=== PATIENT | female | born 1960 | race Caucasian/White ===

== ENCOUNTER 2021-01-18 13:27 | Outpatient (REF) | payer MEDICARE, OTHER, SELFPAY ==
[2021-01-19 08:25] LABS: HBsAGNum1 0.23 S/CO (0.00-0.99); HIV AB/AG Nonreactive (Nonreactive); HIV Num 1 0.05 S/CO (0.00-0.99); Hepatitis B Surface Antigen Negative (Negative)
[2021-01-19 08:34] LABS: ~HepC Num1 0.07 S/CO (0.00-0.79); ~Hepatitis C Antibody Nonreactive (Nonreactive)
[2021-01-19 08:35] LABS: Syphilis Screen Nonreactive (Nonreactive)
[2021-01-19 10:02] LABS: BV Int Neg Control Negative (Negative); BV Int Pos Control Positive (Positive)
== END 2021-01-18 13:28 | disposition home or self-care (01) ==
LOC: HO.LAB 13:27
PROVIDERS: Visit Provider Obstetrics & Gynecology
DX: Z01.411 Encounter for gynecological examination (general) (routine) with abnormal findings (principal); Z11.4 Encounter for screening for human immunodeficiency virus [HIV]; N76.0 Acute vaginitis; B96.89 Other specified bacterial agents as the cause of diseases classified elsewhere
CPT/HCPCS: 36415; 86780; 86803; 87340; 87389; 87480; 87510; 87660; 99212

== ENCOUNTER 2021-03-11 13:02 | Outpatient (REF) | payer MEDICARE, OTHER, SELFPAY ==
--- NOTE | ~2021-03-11 | MM_ITS ---
EXAMINATION: MM SCREENING DIGITAL BREAST TOMOSYNTHESIS, BILATERAL CLINICAL INFORMATION: Screening. Asymptomatic. The lifetime risk of breast cancer based on the Tyrer-Cuzick Model is 5%. COMPARISON: Mammography: 10/11/2012 TECHNIQUE: Digital breast tomosynthesis is performed in both the craniocaudal and mediolateral oblique views along with computer-aided detection (CAD). Synthesized 2D images are generated from the tomosynthesis. FINDINGS: There are scattered areas of fibroglandular density (ACR BI-RADS breast composition Category b). There are no significant masses, abnormal calcifications, or other abnormalities. There is a biopsy clip marker mid upper outer right breast. Scattered benign punctate and some coarse calcifications are present in each breast. There is no developing density or interval mass or architectural abnormality. No significant changes. MM/MM tomosynthesis screening BI IMPRESSION: No mammographic evidence of malignancy. ASSESSMENT: BI-RADS 2: Benign RECOMMENDATION: Routine annual mammography screening. This patient's information was entered into a reminder system with a target due date for their next mammogram.
== END 2021-03-11 13:03 | disposition home or self-care (01) ==
LOC: HO.MAMMO 13:02
PROVIDERS: PCP Internal Medicine; Visit Provider Obstetrics & Gynecology
DX: Z12.31 Encounter for screening mammogram for malignant neoplasm of breast (principal)
CPT/HCPCS: 77063; 77067

== ENCOUNTER → 2021-03-15 14:33 | Outpatient (REF) | payer MEDICARE, OTHER, SELFPAY | LOC: HO.SL 14:33 | PROVIDERS: PCP Internal Medicine; Visit Provider Internal Medicine | DX: G47.33 Obstructive sleep apnea (adult) (pediatric) (principal); R53.83 Other fatigue | CPT/HCPCS: 95806 ==

== ENCOUNTER 2021-04-30 08:52 | Outpatient (REF) | payer MEDICARE, OTHER, SELFPAY ==
[2021-04-30 09:26] LABS: MANUAL DIFF FLAG NO
[2021-04-30 10:40] LABS: Basophils Percent Auto 0.4 % (0-2); Eosinophils Absolute Auto 0.3 X10*3/uL (0.0-0.4); Eosinophils Percent Auto 4.5 % (0-4); Hematocrit 37.4 % (37.0-47.0); Hemoglobin 12.2 g/dl (12.0-16.0); Imm Gran Abs Auto 0.01 X10*3/uL (0.00-0.03); Imm Gran Pct Auto 0.2 % (0.0-0.4); Lymphocytes Absolute Auto 2.5 X10*3/uL (1.2-4.9); Lymphocytes Percent Auto 43.8 % (20-40); Mean Corpuscular HGB Conc 32.6 g/dl (31.0-35.0); Mean Corpuscular Hemoglobin 29.8 pg (27.0-33.0); Mean Corpuscular Volume 91.4 fL (80.0-98.0); Mean Platelet Volume 12.1 fL (9.4-12.3); Monocytes Absolute Auto 0.4 X10*3/uL (0.1-1.2); Monocytes Percent Auto 6.6 % (2-11); Neutrophils Absolute Auto 2.5 x10*3/uL (2.0-8.3); Neutrophils Percent Auto 44.5 % (45-73); Platelet Count 179 X10*3/uL (160-400); Red Blood Count 4.09 X10*6/uL (4.20-5.50); Red Cell Distribution Width 12.5 % (11.0-16.0); White Blood Count 5.6 X10*3/uL (4.8-10.8)
[2021-04-30 10:52] LABS: Alanine Aminotransferase 26 U/L (0-31); Albumin Level 4.3 g/dL (3.5-5.0); Alkaline Phosphatase 98 U/L (39-117); Anion Gap 14 (12-20); Aspartate Amino Transferase 23 U/L (5-31); Bilirubin Total 0.2 mg/dL (0.0-1.0); Blood Urea Nitrogen 19 mg/dL (9-16); Calcium 9.7 mg/dL (8.4-10.2); Carbon Dioxide 27 mmol/L (22-29); Chloride 102 mmol/L (96-108); Cholesterol 171 mg/dL; Estimated Glomerular Filt Rate > 60; Glucose Fasting 116 mg/dL (60-99); HDL Cholesterol 53 mg/dL; LDL Cholesterol Calculated 63 mg/dl; Potassium 4.2 mmol/L (3.3-5.1); Sodium 139 mmol/L (135-145); Triglycerides 279 mg/dL
[2021-04-30 10:54] LABS: Microalbum/Creatinine Ratio Ur 6.2 ug/mg cr
[2021-04-30 11:31] LABS: Estimated Average Glucose 154 mg/dL
== END 2021-04-30 08:53 | disposition home or self-care (01) ==
LOC: HO.LAB 08:52
PROVIDERS: PCP Internal Medicine; Visit Provider Internal Medicine
DX: I10 Essential (primary) hypertension (principal); E11.9 Type 2 diabetes mellitus without complications; E78.00 Pure hypercholesterolemia, unspecified
CPT/HCPCS: 36415; 80053; 80061; 82043; 83036; 85025

== ENCOUNTER 2021-06-10 10:17 | Outpatient (REF) | payer MEDICARE, OTHER, SELFPAY ==
--- NOTE | ~2021-06-10 | XR_ITS ---
EXAMINATION: 1. RADIOGRAPHS LEFT SHOULDER 2. RADIOGRAPHS LEFT HIP CLINICAL INFORMATION: Left shoulder and left hip pain. COMPARISON: None TECHNIQUE: 4 views of the left shoulder and 2 views of left hip were obtained. FINDINGS: Left shoulder: Visualized portion of the proximal left humerus demonstrate no fracture. Humeral head demonstrates good articulation with the glenoid fossa. Prominent osteophyte off the inferomedial aspect of the humeral head. Small osteophyte also noted off the glenoid. There are mild hypertrophic changes of the acromioclavicular joint. Left-sided ribs and lung parenchyma are unremarkable. Left hip: Visualized portion of the proximal left femur demonstrate no fracture. Left femoral head demonstrates good articulation with the glenoid fossa. Left femoral acetabular joint space is well-maintained. Small pelvic calcifications are likely vascular in nature. XR/XR hip LT min 2V IMPRESSION: -Moderate degenerative changes of the left shoulder. -Grossly unremarkable radiographs of the left hip.
--- NOTE | ~2021-06-10 | XR_ITS ---
EXAMINATION: 1. RADIOGRAPHS LEFT SHOULDER 2. RADIOGRAPHS LEFT HIP CLINICAL INFORMATION: Left shoulder and left hip pain. COMPARISON: None TECHNIQUE: 4 views of the left shoulder and 2 views of left hip were obtained. FINDINGS: Left shoulder: Visualized portion of the proximal left humerus demonstrate no fracture. Humeral head demonstrates good articulation with the glenoid fossa. Prominent osteophyte off the inferomedial aspect of the humeral head. Small osteophyte also noted off the glenoid. There are mild hypertrophic changes of the acromioclavicular joint. Left-sided ribs and lung parenchyma are unremarkable. Left hip: Visualized portion of the proximal left femur demonstrate no fracture. Left femoral head demonstrates good articulation with the glenoid fossa. Left femoral acetabular joint space is well-maintained. Small pelvic calcifications are likely vascular in nature. XR/XR shoulder LT min 2V IMPRESSION: -Moderate degenerative changes of the left shoulder. -Grossly unremarkable radiographs of the left hip.
== END 2021-06-10 10:18 | disposition home or self-care (01) ==
LOC: HO.XRAY 10:17
PROVIDERS: PCP Internal Medicine; Visit Provider Internal Medicine
DX: M25.512 Pain in left shoulder (principal); M25.552 Pain in left hip
CPT/HCPCS: 73030; 73502

== ENCOUNTER 2021-06-27 10:20 | Day surgery (SDC) | payer MEDICARE, OTHER, SELFPAY ==
[2021-06-27 10:58] VITALS: BMI 29.2
[2021-06-27 11:07] VITALS: BP 115/67; PULSE 61; RESP 16; TEMP 36.2; O2SAT 96
[2021-06-27 11:11] LABS: Glucose, Whole Blood 143 mg/dL (60-115)
[2021-06-27] MEDS: Lactated Ringers 1,000 ML 50 ML IVCONT (11:25)
--- NOTE | 2021-06-27 12:13 | HO.ANESPROP2 ---
FORMERLY [facility] Active Problems Active Problems: All Active Problems (Updated 01/18/21 @ 14:22 by Sebastian Velez MD) Bacterial vaginosis (Acute) Well woman exam (Acute) Past Medical History Medical History Diabetes High cholesterol Seizures Family History Family history of problems with anesthesia: No Surgical History Surgical History H/O tubal ligation H/O: hysterectomy History of Problems with Anesthesia: No Social History Social History Alcohol intake: current Alcohol intake frequency: holidays/special occasions only Patient Tobacco Use Status: Former Tobacco user Quit Date: 2012 Tobacco use type: Cigarette Smoked in Last 30 Days: No Use of substances other than those prescribed or required for medical reasons: No Are you DNR?: No Advance Directives: No Advance Directives Information Provided: Yes Meds Allergies Allergy/AdvReac Type Severity Reaction Status Date / Time topiramate [Topamax] Allergy Intermediate rash Verified 06/27/21 10:45 Active Medications: Current Medications Lactated Ringer's (Lr) 1,000 mls @ 50 mls/hr IVCONT .Q20H KEKE Last Admin: 06/27/21 11:25 Dose: 50 mls/hr Documented by: Sodium Biphosphate/Sodium Phosphate (Sodium Phosphate,[place]-Dibasic 133 Ml Enema) 133 ml OR ONCE PRN PRN Reason: Poor Colonoscopy Prep Results Home Medications Medication Instructions Recorded Confirmed Last Taken Type atorvastatin 40 mg tablet (Lipitor) 40 mg PO DAILY 01/18/21 Unknown History levetiracetam 1,000 mg tablet 1,000 mg PO BID 01/18/21 06/27/21 08:00 History (Keppra) metformin 500 mg tablet 500 mg PO DAILY 01/18/21 Unknown History omeprazole 40 mg capsule,delayed 40 mg PO DAILY 01/18/21 Unknown History release lisinopril 10 1 tab PO DAILY 06/27/21 06/27/21 06/27/21 08:00 History mg-hydrochlorothiazide 12.5 mg tablet Exam Exam Date and Time: June 27, 2021 1213 Height,Weight and Vital Signs: Height 5 ft 4 in Weight 77.111 kg Last Vital Signs Temp 97.1 F 06/27/21 11:07 Pulse 61 06/27/21 11:07 Resp 16 06/27/21 11:07 BP 115/67 06/27/21 11:07 Pulse Ox 96 06/27/21 11:07 Pertinent Lab Results Pertinent Lab Results: Laboratory Tests 06/27/21 11:04 POC Glucose 143 H Airway Mallampati Class: III TM Dist: >3cm Neck ROM: Full Assessment and Plan Assessment Anesthesia Assessment: Anesthesia Plan Discussed and Chart Reviewed Final Anesthetic Review Family History of Problems with Anesthesia: No History of Problems with Anesthesia: No NPO: Yes ASA Class: III Final Preanesthetic Review: No Changes in Pt Med Stat, Meds/Allgs Chart Reviewed, Consent Obtained/Reviewed and Anes Risks/Benef Reviewed Patient Risk: Intermediate Procedure Risk: Low Anesthetic Plan Anesthetic Plan: MAC: Disposition: Standard PACU
[2021-06-27 13:43] VITALS: BP 106/53; PULSE 68; RESP 16; TEMP 36.4; O2SAT 97
--- NOTE | 2021-06-27 13:44 | PM.OP ---
Brief Operative Note Date of Service: 06/27/21 Pre-op diagnosis: Screening Post-op diagnosis: other (Diversticulosis) Procedure: Colonoscopy to the cecum and TI Surgeon: Aneesh Albrecht Anesthesia: MAC Was an Sculpture Instructor used for this Procedure?: No Estimated blood loss (mL): 0 Pathology: none sent Condition: stable Disposition: PACU
[2021-06-27 13:58] VITALS: BP 114/57; PULSE 56; RESP 19; TEMP 36.9; O2SAT 97
--- NOTE | 2021-06-27 14:44 | OP_ITS ---
SURGEON: Aneesh Albrecht MD INDICATIONS: The patient presents for evaluation of colorectal cancer screening. Full consent was obtained from her for this, including risks of bleeding and perforation. PREOPERATIVE DIAGNOSIS: Colorectal cancer screening. POSTOPERATIVE DIAGNOSIS: PROCEDURE PERFORMED: Colonoscopy to the cecum and terminal ileum. ESTIMATED BLOOD LOSS: COMPLICATIONS: ANESTHESIA: Monitored anesthesia care. ASSISTANTS: SPECIMENS: POSTOPERATIVE DIAGNOSES: Colorectal cancer screening, diverticulosis and internal hemorrhoids. DESCRIPTION OF PROCEDURE: The patient was placed in the left lateral decubitus position. The digital rectal exam revealed no abnormalities. The Olympus video pediatric colonoscope was entered into the rectum and advanced easily to the cecum. Once in the cecum, I did identify normal-appearing cecal pouch with appendiceal orifice and a normal-appearing ileocecal valve. The terminal ileum was cannulated and appeared normal. The scope was withdrawn back in the colon. The entire cecum and ileocecal valve appeared normal. The scope was slowly withdrawn assessing all mucosal surfaces carefully. Preparation was excellent. I did not visualize any sign of polyps, colitis, nor angiodysplasia. There was a mild amount of sigmoid diverticulosis. In the rectum, scope was retroflexed visualizing internal hemorrhoids, but no other pathology. The rectal mucosa appeared normal. The scope was straightened and withdrawn from the patient. She tolerated the procedure well and was returned to recovery area in stable condition. IMPRESSION: 1. Diverticulosis. 2. Internal hemorrhoids. PLAN: Given the negative exam and no family history of first-degree relatives with colon cancer, I would recommend a repeat colonoscopy in 10 years for further screening. She was advised that she could resume aspirin and fish oil today. MD REID Youngblood/YUNIOR / [id number]
== END 2021-06-27 14:47 | disposition home or self-care (01) ==
PROVIDERS: PCP Internal Medicine; Visit Provider Internal Medicine
PROC: 0DJD8ZZ Inspection of Lower Intestinal Tract, Via Natural or Artificial Opening Endoscopic (ICD-10-PCS; CPT 45378; principal; 2021-06-27 11:40)
DX: Z12.11 Encounter for screening for malignant neoplasm of colon (principal); K57.30 Diverticulosis of large intestine without perforation or abscess without bleeding; K64.8 Other hemorrhoids; K21.9 Gastro-esophageal reflux disease without esophagitis; E78.5 Hyperlipidemia, unspecified; G40.909 Epilepsy, unspecified, not intractable, without status epilepticus; I10 Essential (primary) hypertension; E11.9 Type 2 diabetes mellitus without complications; Z79.84 Long term (current) use of oral hypoglycemic drugs; Z79.82 Long term (current) use of aspirin; Z79.899 Other long term (current) drug therapy
CPT/HCPCS: G0121; 82947

== ENCOUNTER 2022-08-18 08:39 | Outpatient (REF) | payer MEDICARE, OTHER, SELFPAY ==
[2022-08-18 09:11] LABS: MANUAL DIFF FLAG NO
[2022-08-18 10:05] LABS: Basophils Percent Auto 0.6 % (0-2); Eosinophils Absolute Auto 0.2 X10*3/uL (0.0-0.4); Eosinophils Percent Auto 4.1 % (0-4); Hematocrit 33.9 % (37.0-47.0); Hemoglobin 11.2 g/dl (12.0-16.0); Imm Gran Abs Auto 0.01 X10*3/uL (0.00-0.03); Imm Gran Pct Auto 0.2 % (0.0-0.4); Lymphocytes Absolute Auto 2.3 X10*3/uL (1.2-4.9); Lymphocytes Percent Auto 48.7 % (20-40); Mean Corpuscular Hemoglobin 29.9 pg (27.0-33.0); Mean Corpuscular Volume 90.4 fL (80.0-98.0); Mean Platelet Volume 12.8 fL (9.4-12.3); Monocytes Absolute Auto 0.3 X10*3/uL (0.1-1.2); Monocytes Percent Auto 5.6 % (2-11); Neutrophils Absolute Auto 1.9 x10*3/uL (2.0-8.3); Neutrophils Percent Auto 40.8 % (45-73); Platelet Count 142 X10*3/uL (160-400); Red Blood Count 3.75 X10*6/uL (4.20-5.50); Red Cell Distribution Width 12.4 % (11.0-16.0); White Blood Count 4.7 X10*3/uL (4.8-10.8)
[2022-08-18 10:34] LABS: Estimated Average Glucose 137 mg/dL; Hemoglobin A1c % 6.4 %
[2022-08-18 10:59] LABS: Alanine Aminotransferase 21 U/L (0-31); Albumin Level 4.1 g/dL (3.5-5.0); Alkaline Phosphatase 69 U/L (39-117); Anion Gap 12 (12-20); Aspartate Amino Transferase 22 U/L (5-31); Bilirubin Total 0.5 mg/dL (0.0-1.0); Blood Urea Nitrogen 12 mg/dL (9-16); Calcium 9.3 mg/dL (8.4-10.2); Carbon Dioxide 25 mmol/L (22-29); Chloride 107 mmol/L (96-108); Cholesterol 173 mg/dL; Estimated Glomerular Filt Rate > 60; Glucose Fasting 117 mg/dL (60-99); HDL Cholesterol 49 mg/dL; LDL Cholesterol Calculated 93 mg/dl; Potassium 4.3 mmol/L (3.3-5.1); Sodium 140 mmol/L (135-145); Total Protein 6.8 g/dL (6.5-8.0); Triglycerides 156 mg/dL
[2022-08-18 11:14] LABS: TSH reflex Free T4 0.85 uIU/mL (0.32-4.0); Vitamin D 25-OH Total 21.8 ng/mL (>30)
[2022-08-18 12:20] LABS: Creatinine Urine 284.01 mg/dL; Microalbum/Creatinine Ratio Ur 5.6 ug/mg cr
== END 2022-08-18 08:40 | disposition home or self-care (01) ==
LOC: HO.LAB 08:39
PROVIDERS: Visit Provider Nurse Practitioner Family
DX: Z13.29 Encounter for screening for other suspected endocrine disorder (principal); Z13.21 Encounter for screening for nutritional disorder; Z13.220 Encounter for screening for lipoid disorders; Z13.0 Encounter for screening for diseases of the blood and blood-forming organs and certain disorders involving the immune mechanism; E11.9 Type 2 diabetes mellitus without complications
CPT/HCPCS: 36415; 80053; 80061; 82043; 82306; 83036; 84443; 85025

== ENCOUNTER 2022-09-01 11:20 | Outpatient (AMB) | payer MEDICARE, OTHER, SELFPAY ==
[2022-09-01 11:22] VITALS: BP 132/80; PULSE 66; O2SAT 96; BMI 27.1
--- NOTE | 2022-09-01 11:22 | A.OFFPC_ITS ---
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 Medical history significant for asthma, hyperlipidemia, migraines, insomnia, type 2 diabetes mellitus, seizures, hypertension, anxiety, depression, panic attacks and GERD. Patient states ongoing back for years s/p lumbar spine fusion 2016, patient states has 5 screws and a plate in back. Patient pain radiated hip and left leg. States numbness and tingling. Denies bowel or bladder incontinence. PAtient states has completed PT multiple times with no improvement. [facility] Medical History (Updated 09/01/22 @ 11:56 by CORAL Silvestre) Asthma Diabetes High cholesterol Insomnia Seizures Surgical History H/O tubal ligation H/O: hysterectomy History of back surgery History of breast biopsy Family History Mother Diabetes Sister Colon cancer Brother Cirrhosis of liver Social History (Updated 08/11/22 @ 14:01 by CORAL Silvestre) Housing: House Alcohol intake: current Alcohol intake frequency: holidays/special occasions only Patient Tobacco Use Status: Former Tobacco user (2012) Quit Date: 2012 Tobacco use type: Cigarette e-Cigarette/Vaping Use: Never Used Second Hand Smoke Exposure: Yes service: No Current occupational status: retired Cognitive needs: Yes (cane/ walker) Hearing needs: No Vision needs: Yes (glasses) Questionnaire PHQ-9 Over the last 2 weeks, how often have you been bothered by any of the following problems? 1. Little interest or pleasure in doing things: nearly every day 2. Feeling down, depressed, or hopeless: nearly every day 3. Trouble falling or staying asleep, or sleeping too much: nearly every day 4. Feeling tired or having little energy: more than half the days 5. Poor appetite or overeating: more than half the days 6. Feeling bad about yourself - or that you are a failure or have let yourself or your family down: more than half the days 7. Trouble concentrating on things, such as reading the newspaper or watching television: more than half the days 8. Moving or speaking so slowly that other people could have noticed. Or the opposite - being so fidgety or restless that you have been moving around a lot more than usual: more than half the days 9. Thoughts that you would be better off or of hurting yourself in some way: not at all Total score: 19 Source: Developed by Drs. Aneesh Lomax, Selma Pedroza, Salvador Aparicio and colleagues, with an educational dheeraj from [employer]. Thrive Questionnaire Date Thrive assessed: 09/01/22 I am a: Patient What is your living situation today?: I have a steady place to live Within the past 12 months, did the food you bought not last and you didn't have the money to get more?: Never true Within the past 12 months, did you worry whether your food would run out before you got money to buy more?: Never true Do you have trouble paying for medicines?: No Do you have trouble getting transportation to medical appointments?: No Do you have trouble paying your heating and electricity bill?: No Do you have trouble taking care of your child, family member or friend?: No Do you have trouble with day-to-day activities such as bathing, preparing meals, shopping, managing finances, etc.?: No Are you currently unemployed and looking for a job?: No Are you interested in more education?: No Currently or been in a relationship where the following occur: no concerns reported AUDIT C Alcohol Use Questionnaire (AUDIT-C) 1. How often do you have a drink containing alcohol?: Never Total Score: 0 KANWAL-7 AMB Questionnaire KANWAL-7 Date KANWAL - 7 assessed: 09/01/22 Feeling nervous, anxious, or on edge: 2 = More than half the days Not being able to stop or control worryin = More than half the days Worrying too much about different things: 2 = More than half the days Trouble relaxin = More than half the days Being so restless that it is hard to sit still: 1 = Several days Becoming easily annoyed or irritable: 2 = More than half the days Feeling afraid as if something awful might happen: 1 = Several days Total KANWAL-7 score (0-4 normal; 5-9 mild; 10-14 moderate; 15-21 severe): 12 Source: Developed by Drs. Aneesh Lomax, Selma Pedroza, Salvador Aparicio and colleagues, with an educational dheeraj from [employer]. Review of Systems Const Denies chills, Denies fatigue, Denies fever(s) and Denies poor appetite Eyes Denies no additional complaints ENT Reports Normal hearing present Card Denies chest pain, Denies syncope, Denies rapid heart rate and Denies dyspnea Resp Denies cough and Denies dyspnea GI Denies change in stool character, Denies constipation, Denies diarrhea, Denies nausea and Denies vomiting Denies urinary frequency, Denies dysuria and Denies urinary urgency Musc Reports back pain Neuro Reports Normal hearing present, Denies confusion and Denies syncope Psych Denies confusion Endo Denies fatigue Physical exam (Primary Care) Vital Signs: Last Vital Signs Pulse 66 09/01/22 11:22 BP 132/80 09/01/22 11:22 Pulse Ox 96 09/01/22 11:22 Oxygen Delivery Method Room Air 09/01/22 11:22 BMI result Body Mass Index 27.1 Tobacco/Smoking Status: Tobacco use Status Tobacco use date assessed 09/01/22 09/01/22 11:29 Patient Tobacco Use Status Former Tobacco user (2012) 09/01/22 11:29 Tobacco use type Cigarette 09/01/22 11:29 e-Cigarette/Vaping Use Never Used 09/01/22 11:29 PHQ-9: PHQ-9 Score PHQ-9: Total score 19 09/01/22 11:30 Thrive Assessment: Date of Thrive Assessment Date Thrive assessed 09/01/22 09/01/22 11:29 Currently or been in a relationship where the following occur: no concerns reported Const General: No confusion Orientation/consciousness: No confusion HENMT Head: Yes normocephalic and Yes atraumatic Eyes Conjunctivae: conjunctivae normal Chest Chest palpation & inspection: normal inspection of the chest Resp Effort & Inspection: normal respiratory effort Auscultation: clear to auscultation bilaterally, no crackles, no rhonchi and no wheezes Cardio Rate: regular rate Rhythm: regular rhythm Heart sounds: S1 normal heart sound present and S2 normal heart sound present GI Inspection: Yes normal to inspection Back/Spine/Pelvis Cervical Spine: normal cervical lordosis Thoracic/Lumbar Spine: thoracic and lumbar spine normal to inspection, pain with thoraco-lumbar ROM, paraspinal muscle tenderness, thoraco-lumbar ROM limited, No thoracic spinal tenderness, lumbar spinal tenderness and straight leg raise positive Pelvis: no pain with anterior-posterior compression and sciatic notch tenderness Neuro General: No confusion Cranial nerves: Yes Normal hearing present Extrem General: No edema Assessment and Plan Assessment & Plan (1) Lumbar back pain with radiculopathy affecting left lower extremity: Code(s): M54.16 - Radiculopathy, lumbar region Plan: Given patient has been experiencing chronic lumbar back pain since spinal fusion in 2017 has tried PT multiple times with no improvement will send to pain management for further evaluation and treatment. Lidoderm patches sent to patient's pharmacy for pain. (2) Black head: Code(s): L70.0 - Acne vulgaris Plan: Patient has black noted to right shoulder blade would like it removed. Referral entered to dermatology. Plan Keep scheduled physical exam in october. Orders: Referrals Pain Management Referral M54.16 - Radiculopathy, lumbar region Dermatology Referral L70.0 - Acne vulgaris Medications: New lidocaine 5% (Lidoderm) leave on most painful area for up to 12 hrs 1 patch topical DAILY 15 ea 0RF M54.16 - Radiculopathy, lumbar region Coding Level of Care Code Est Pt Level 3 (29156) Diagnoses Lumbar back pain with radiculopathy affecting left lower extremity M54.16 Black head L70.0
== END 2022-09-01 12:19 | disposition home or self-care (01) ==
PROVIDERS: PCP Nurse Practitioner Family; Visit Provider Nurse Practitioner Family
DX: M54.16 Radiculopathy, lumbar region (principal); L70.0 Acne vulgaris
CPT/HCPCS: 99213

== ENCOUNTER 2022-09-14 12:35 | Outpatient (REF) | payer MEDICARE, OTHER, SELFPAY ==
--- NOTE | 2022-09-14 12:39 | EEG_ITS ---
FINDINGS: The waking background activity consists of a well-defined, [id number] voltage posterior 10 to 11 hertz alpha frequency intermixed anteriorly with low-voltage fast frequencies. During drowsiness, there is diffuse theta slowing. The sleep is characterized by symmetrical frontocentral sleep spindles and vertex sharp transients. Stages 1 to 4 of sleep are noted. Arousals are unremarkable. The patient does not report any symptoms. No focal, lateralizing, or paroxysmal discharges are seen. IMPRESSION: This 24-hour ambulatory EEG is within normal limits. MD ANTELMO Paige/YUNIOR / [id number]
== END 2022-09-14 12:36 | disposition home or self-care (01) ==
LOC: HO.NEURO 12:35
PROVIDERS: PCP Nurse Practitioner Family; Visit Provider Psychiatry & Neurology Neurology
DX: G40.909 Epilepsy, unspecified, not intractable, without status epilepticus (principal)
CPT/HCPCS: 95708

== ENCOUNTER 2022-09-19 09:49 | Outpatient (AMB) | payer MEDICARE, OTHER, SELFPAY ==
--- NOTE | 2022-09-19 09:50 | MHC.OFFVIS ---
Intake Vital Signs 09/19/22 09:55 Height 5 ft 2 in Weight 150 lb 2 oz BMI 27.5 BP 120/62 Blood Pressure Location Rt brachial Position Sitting Pulse 68 Pulse Source Pulse Oximeter Pulse Oximetry (%) 96 Oxygen Delivery Method Room Air Intake Visit Reasons: Radiculopathy, Lumbar Region Intake Note: Pain today 06/28 Bottler Required: No Accompanied by: Self / Same As Patient Allergies topiramate [Topamax] Allergy (Intermediate, Verified 09/19/22 09:57) rash HPI Radiculopathy, Lumbar Region HPI Details Patient is a pleasant 61 years old female with history of lumbar degenerative disc disease, back pain, seizures, migraines, diabetes, anxiety and depression, panic attacks, presents today for initial evaluation of chronic low back pain that has been radiating to her left buttock and left lower legs posteriorly and sole of her left foot and heel. Denies any recent trauma, injury or falls. Reports history of 2 back surgeries, first [place] [address] Navarrete and second in [place] in 2016 for lumbar fusion with one plate and [address] Patient recently moved from [place]. Reports remote back injections prior to first back surgery without pain relief. She has completed physical therapy in the past with temporary results and is willing to pursue PT again to strengthen her core and decrease pain and muscle stiffness. She also would like to receive therapeutic injections to alleviate her left radicular pain. No recent lumbar spine imaging is available for review today. Denies any fever, weight loss, abdominal or groin pain, bladder or bowel incontinence, or saddle anesthesia. Patient also reports low pelvic pain due to ongoing urinary incontinence and recent UTI as well as chronic urinary symptoms since hysterectomy in 2013 in [place]. Reports sneezing and coughing causes her urinary incontinence and this has been happening for over one month. Location Lower back radiates down left leg Duration Chronic back pain Characteristics of symptom or complaint Shooting, stabbing, burning, aching, spasming, aching, sore, heavy Aggravating or associated factors Walking (<20 min), weather changes, changing positions, standing Relieving factors Sitting, standing, Tylenol Arthritis, NSAIDs, heat therapy Treatment PT and back injections in 2003- no improvement PFSH Medical History Asthma Diabetes High cholesterol Insomnia Seizures Surgical History H/O tubal ligation H/O: hysterectomy History of back surgery History of breast biopsy Family History Mother Diabetes Sister Colon cancer Brother Cirrhosis of liver Social History Housing: House Alcohol intake: current Alcohol intake frequency: holidays/special occasions only Patient Tobacco Use Status: Former Tobacco user Quit Date: 2012 Tobacco use type: Cigarette e-Cigarette/Vaping Use: Never Used Second Hand Smoke Exposure: Yes service: No Current occupational status: retired Cognitive needs: Yes (cane/ walker) Hearing needs: No Vision needs: Yes (glasses) Review of Systems Const All systems reviewed & are unremarkable except as noted in HPI and below Physical Exam Vital Signs: Last Vital Signs Pulse 68 09/19/22 09:55 BP 120/62 09/19/22 09:55 Pulse Ox 96 09/19/22 09:55 Oxygen Delivery Method Room Air 09/19/22 09:55 BMI result Body Mass Index 27.5 General: Appears afebrile. Alert and oriented. Mood and affect appropriate. Follows and participates in conversation appropriately. Respiratory effort is unlabored. Able to transition from sit to stand unassisted. Back/Spine/Pelvis Other: Patient is able to walk and stand on heels and tip toes with mild difficulty on the left due to pain. Antalgic gait, no limping. Can flex forward to 50-60 degrees and extend to 5-10 degrees before experiencing lumbar pain. Demonstrates 5/5 right and 4/5 left strength of quadriceps bilaterally as well as flexion/dorsiflexion of bilateral feet against resistance. 2+ pedal pulses bilaterally. Seated straight leg rise with dorsiflexion positive on the left. +1 patellar and achilles reflexes bilaterally. Facet loading test positive bilaterally. Cira sign, Douglas?s, Gaenslen, Pelvic compression and Stinchfield tests are positive bilaterally. No groin pain with I/E hip rotations. Valsalva maneuver negative. Back: back tenderness Cervical Spine: cervical muscular tenderness, pain with cervical ROM and No Cervical spine tenderness Thoracic/Lumbar Spine: thoracic and lumbar spine normal to inspection, Thoracic/lumbar spine scar(s), Lasegue's sign positive bilateral, pain with thoraco-lumbar ROM, paraspinal muscle tenderness on the left greater than right, thoraco-lumbar ROM limited, Thoracic/lumbar scoliosis, No thoracic spinal tenderness and lumbar spinal tenderness at L5 Pelvis: buttock tenderness on the left and sciatic notch tenderness on the left Sacroiliac joints: bilaterally tender to palpation Assessment & Plan Assessment & Plan (1) Lumbar back pain with radiculopathy affecting left lower extremity: Code(s): M54.16 - Radiculopathy, lumbar region (2) Lumbar degenerative disc disease: Code(s): M51.36 - Other intervertebral disc degeneration, lumbar region (3) Lumbar spondylosis: Code(s): M47.816 - Spondylosis without myelopathy or radiculopathy, lumbar region (4) Lumbar post-laminectomy syndrome: Code(s): M96.1 - Postlaminectomy syndrome, not elsewhere classified (5) Sacroiliitis: Code(s): M46.1 - Sacroiliitis, not elsewhere classified Plan 1. Lumbar spine imaging to assess degree of degenerative changes, any subluxation, listhesis or pars defects and lumbar spine MRI to assess for neural integrity and compression. Discussed treatments for axial and radicular low back pain, and SIJ pain. 2. Patient is interested to start formal physical therapy for low back pain with radiculopathy. Script provided. 3. Continue gabapentin, lidocaine patch, Tylenol, low dose NSAIDs, heat therapy. Script provided for topical compound cream via [facility]. All questions and concerns have been answered and patient agreed with the plan. Patient will return to the clinic to discuss results of the xray and MRI findings when it is done and consider interventional therapy as indicated. Orders: Orders MR lumbar spine wo/w con 09/19/22 M51.36 - Other intervertebral disc degeneration, lumbar region, M54.16 - Radiculopathy, lumbar region XR lumbar spine 4V min 09/19/22 M47.816 - Spondylosis without myelopathy or radiculopathy, lumbar region, M51.36 - Other intervertebral disc degeneration, lumbar region, M54.16 - Radiculopathy, lumbar region PT Evaluation and Treatment 09/19/22 M47.816 - Spondylosis without myelopathy or radiculopathy, lumbar region, M51.36 - Other intervertebral disc degeneration, lumbar region, M53.3 - Sacrococcygeal disorders, not elsewhere classified, M54.16 - Radiculopathy, lumbar region Medications: New diclofenac sodium 1% (Arthritis Pain (diclofenac)) apply pea-sized amount 3-5 times daily to painful areas as needed 4 grams topical QID 180 grams 1RF pain M62.838 - Other muscle spasm, M96.1 - Postlaminectomy syndrome, not elsewhere classified Coding Level of Care Code New Pt Level 4 (37285) Diagnoses Lumbar back pain with radiculopathy affecting left lower extremity M54.16 Lumbar degenerative disc disease M51.36 Lumbar spondylosis M47.816 Lumbar post-laminectomy syndrome M96.1 Sacroiliitis M46.1
[2022-09-19 09:55] VITALS: BP 120/62; PULSE 68; O2SAT 96; BMI 27.5
== END 2022-09-19 10:35 | disposition home or self-care (01) ==
PROVIDERS: PCP Nurse Practitioner Family; Visit Provider Nurse Practitioner Family
DX: M46.1 Sacroiliitis, not elsewhere classified (principal); M47.26 Other spondylosis with radiculopathy, lumbar region; M51.36 Other intervertebral disc degeneration, lumbar region; M96.1 Postlaminectomy syndrome, not elsewhere classified
CPT/HCPCS: 99204

== ENCOUNTER → 2022-09-19 09:49 | Outpatient (BNVA) | payer MEDICARE, OTHER, SELFPAY | PROVIDERS: PCP Nurse Practitioner Family; Visit Provider Nurse Practitioner Family | DX: M51.36 Other intervertebral disc degeneration, lumbar region (principal); M47.26 Other spondylosis with radiculopathy, lumbar region; M47.816 Spondylosis without myelopathy or radiculopathy, lumbar region; M53.3 Sacrococcygeal disorders, not elsewhere classified; M96.1 Postlaminectomy syndrome, not elsewhere classified | CPT/HCPCS: 99202 ==

== ENCOUNTER 2022-09-22 09:59 | Outpatient (REF) | payer MEDICARE, OTHER, SELFPAY ==
[2022-09-26 19:04] LABS: Levetiracetam Keppra 9.9 mcg/mL (6.0-46.0)
== END 2022-09-22 10:00 | disposition home or self-care (01) ==
LOC: HO.LAB 09:59
PROVIDERS: PCP Nurse Practitioner Family; Visit Provider Psychiatry & Neurology Neurology
DX: G40.909 Epilepsy, unspecified, not intractable, without status epilepticus (principal); Z79.899 Other long term (current) drug therapy
CPT/HCPCS: 36415; 80177

== ENCOUNTER 2022-11-13 10:54 | Outpatient (AMB) | payer MEDICARE, OTHER, SELFPAY ==
[2022-11-13 11:06] VITALS: BP 124/72; PULSE 58; O2SAT 98; BMI 28.2
--- NOTE | 2022-11-13 11:06 | A.OFFPC_ITS ---
Vital Signs 11/13/22 11:06 Height 5 ft 2 in Weight 154 lb BMI 28.2 BP 124/72 Blood Pressure Location Lt brachial Position Sitting Pulse 58 Pulse Source Pulse Oximeter Pulse Oximetry (%) 98 Oxygen Delivery Method Room Air Intake Visit Reasons: 3M follow up [employer] Examiner: Not Required per policy Accompanied by: Self / Same As Patient Allergies topiramate [Topamax] Allergy (Intermediate, Verified 11/13/22 11:34) rash Medication List - Last Reconciled 11/13/22 by CORAL Silvestre albuterol sulfate 90 mcg/actuation 2 puffs inhalation Q6H PRN atorvastatin (Lipitor) 40 mg PO DAILY [id number]-wcrjumwijt-[id number]-cod [id number] mg 1 cap PO BID PRN cholecalciferol (vitamin D3) 25 mcg PO DAILY diclofenac sodium 1% (Arthritis Pain (diclofenac)) 4 grams topical QID estazolam 2 mg PO BEDTIME gabapentin 200 mg (2 x 100 mg) PO BID hydroxyzine HCl 25 mg PO BEDTIME PRN levetiracetam (Keppra) 1,000 mg PO BID levetiracetam (Keppra) 250 mg PO BID lidocaine 5% (Lidoderm) 1 patch topical DAILY lisinopril-hydrochlorothiazide 10-12.5 mg 1 tab PO DAILY metformin 500 mg PO DAILY omeprazole 40 mg PO DAILY Tobacco use date assessed: 09/01/22 Dental Screening Dental Screen Date: 11/13/22 Did you have a dental visit in the last 12 months?: Yes Did you have a dental problem in the last 6 months where you did not have access to dental care?: No Was dental information given to patient?: Patient has dentist HPI HPI Comments History of Present Illness Details 61-year-old female new patient presents today for physical exam? Medical history significant for asthma, hyperlipidemia, migraines, insomnia, type 2 diabetes mellitus, seizures, hypertension, anxiety, depression, panic attacks and GERD. Review of the notes patient was seen by pain management. Patient was recommended to proceed with port physical therapy and MRI was ordered, patient reports has an appointment for this in November. Denies any chest pain palpitations, shortness of breath and syncope. Patient reports has been experiencing depression as as anxiety as PHQ-9 was positive scored 19 and kanwal 7 scoring for mild anxiety. Patient requesting to start sertraline. Eye exam: November Mammogram February 2021; negative Pap smear: Appointment in April Colonoscopy:06/27/21 [facility] Medical History Insomnia Asthma High cholesterol Seizures Diabetes Surgical History History of breast biopsy History of back surgery H/O tubal ligation H/O: hysterectomy Family History Mother Diabetes Sister Colon cancer Brother Cirrhosis of liver Social History Housing: House Alcohol intake: current Alcohol intake frequency: holidays/special occasions only Patient Tobacco Use Status: Former Tobacco user Quit Date: 2012 Tobacco use type: Cigarette e-Cigarette/Vaping Use: Never Used Second Hand Smoke Exposure: Yes service: No Current occupational status: retired Cognitive needs: Yes (cane/ walker) Hearing needs: No Vision needs: Yes (glasses) Questionnaire Thrive Questionnaire Date Thrive assessed: 09/01/22 KANWAL-7 AMB Questionnaire KANWAL-7 Date KANWAL - 7 assessed: 09/01/22 Source: Developed by Drs. Aneesh Lomax, Selma Pedroza, Salvador Aparciio and colleagues, with an educational dheeraj from [employer]. Review of Systems Const Denies chills, Denies fatigue, Denies fever(s) and Denies poor appetite Eyes Denies no additional complaints ENT Reports Normal hearing present Card Denies chest pain, Denies syncope, Denies rapid heart rate and Denies dyspnea Resp Denies cough and Denies dyspnea GI Denies change in stool character, Denies constipation, Denies diarrhea, Denies nausea and Denies vomiting Denies urinary frequency, Denies dysuria and Denies urinary urgency Neuro Reports Normal hearing present, Denies confusion and Denies syncope Psych Denies confusion Endo Denies fatigue Physical exam (Primary Care) Vital Signs: Last Vital Signs Pulse 58 11/13/22 11:06 BP 124/72 11/13/22 11:06 Pulse Ox 98 11/13/22 11:06 Oxygen Delivery Method Room Air 11/13/22 11:06 BMI result Body Mass Index 28.2 Tobacco/Smoking Status: Tobacco use Status Tobacco use date assessed 09/01/22 11/13/22 11:09 Patient Tobacco Use Status Former Tobacco user 11/13/22 11:09 Tobacco use type Cigarette 11/13/22 11:09 e-Cigarette/Vaping Use Never Used 11/13/22 11:09 Thrive Assessment: Date of Thrive Assessment Date Thrive assessed 09/01/22 11/13/22 11:09 Const General: No confusion Orientation/consciousness: No confusion HENMT Head: Yes normocephalic and Yes atraumatic Ears: external ears normal and TM's normal bilaterally General nose exam: Normal external nose present and Normal nasal mucous membranes and turbinates present Face and sinus: Yes normal facial exam and Yes sinuses nontender Mouth: moist mucous membranes Throat: Yes tonsils normal Eyes Conjunctivae: conjunctivae normal Sclerae: sclerae normal Pupils: Equal, round and reactive pupils present and Pupils normal by confrontation EOM: EOMs intact bilaterally Direct Ophthalmoscopy: normal light reflex Neck Neck: Yes no lymphadenopathy and Yes supple Thyroid: Thyroid normal Chest Chest palpation & inspection: normal inspection of the chest Resp Effort & Inspection: normal respiratory effort Auscultation: clear to auscultation bilaterally, no crackles, no rhonchi and no wheezes Cardio Rate: regular rate Rhythm: regular rhythm Peripheral pulses: radial pulses present and dorsalis pedis present GI Inspection: Yes normal to inspection Palpation (GI): Soft to palpation, nontender and No hepatosplenomegaly present Auscultation: normoactive bowel sounds Skin General skin exam: no rashes or lesions noted Neuro General: No confusion Cranial nerves: Yes Equal, round and reactive pupils present and Yes Normal hearing present Cognition (Neuro): normal cognition Gait exam (Neuro): Normal gait present Motor exam (neuro): 5/5 motor strength present throughout Deep tendon reflexes (DTR's): Right brachioradialis reflex intensity grade: 2+, Left brachioradialis reflex intensity grade: 2+, Right patellar reflex intensity grade: 2+ and Left patellar reflex intensity grade: 2+ Extrem General: No edema Assessment and Plan Assessment & Plan (1) Hypertension: Code(s): I10 - Essential (primary) hypertension Plan: Continue on lisinopril-HCTZ. Blood pressure optiomal today in office (2) Seizures: Code(s): R56.9 - Unspecified convulsions Plan: Continue on current medications. Continue to follow with nephrology. (3) Lumbar post-laminectomy syndrome: Code(s): M96.1 - Postlaminectomy syndrome, not elsewhere classified Plan: Continue to follow with pain management. (4) Diabetes: Code(s): E11.9 - Type 2 diabetes mellitus without complications Plan: Continue on metformin. HGB a1c 6.4% in July, repeat ordered. (5) Physical exam, annual: Code(s): Z00.00 - Encounter for general adult medical examination without abnormal findings Plan: Follow up in 1 year. (6) Depression: Code(s): F32.A - Depression, unspecified Plan: Patient requesting to start on sertraline, will start patient on 25mg daily for anxiety/depression. Patient denies SI/HI. (7) Generalized anxiety disorder: Code(s): F41.1 - Generalized anxiety disorder Plan Follow up in 3 months. Coding Level of Care Code Est Pt Prev Care 40-64y(51797) Diagnoses Hypertension I10 Seizures R56.9 Lumbar post-laminectomy syndrome M96.1 Diabetes E11.9 Physical exam, annual Z00.00 Depression F32.A Generalized anxiety disorder F41.1
== END 2022-11-13 11:46 | disposition home or self-care (01) ==
PROVIDERS: PCP Nurse Practitioner Family; Visit Provider Nurse Practitioner Family
DX: Z00.00 Encounter for general adult medical examination without abnormal findings (principal); I10 Essential (primary) hypertension; R56.9 Unspecified convulsions; E11.9 Type 2 diabetes mellitus without complications; M96.1 Postlaminectomy syndrome, not elsewhere classified; F32.A Depression, unspecified; F41.1 Generalized anxiety disorder
CPT/HCPCS: 99396

== ENCOUNTER 2022-12-28 14:00 | Outpatient (RCR) | payer MEDICARE, OTHER, SELFPAY ==
--- NOTE | 2023-01-09 13:37 | MHC.PT.DC ---
[facility] [place] Office [place] [facility] [place] Office [address] Rita Burrows [address] [phone] F: [phone] F: [phone] F: [phone] F: [phone] Physical Therapy Discharge Report Diagnosis: LBP Date of Surgery: Date of Evaluation: 11/21/22 Date of Discharge: 01/09/23 Treatments to Date: 6 Cancellations to Date: 0 No Shows to Date: 0 Discharge Status: Patient Elected to Stop Recommend MD Follow-up Discharge Summary: Laurence has been an active participant in her therapy in the clinic with poor home program compliance and fair to poor tolerance for therapeutic exercises in the gym. She wishes today to be her last session and PT is in agreement as she has not demonstrated meaningful improvement of her symptoms and continues to rate her pain as intense and not varying much. Of note Pt c/o pain with most activities though was able to transfer to lay prone for hands on therapy and return to sitting and standing without compensated movement or pain. Electronically signed by: Guerline Henry PT DPT Please sign and return to therapist. Thank you for your referral.
== END 2023-01-09 13:37 | disposition home or self-care (01) ==
LOC: HO.PT 14:00
PROVIDERS: PCP Nurse Practitioner Family; Visit Provider Nurse Practitioner Family
DX: M47.816 Spondylosis without myelopathy or radiculopathy, lumbar region (principal); M51.36 Other intervertebral disc degeneration, lumbar region; M54.16 Radiculopathy, lumbar region
CPT/HCPCS: 97110; 97140; 97161

== ENCOUNTER 2023-01-08 15:44 | Outpatient (REF) | payer MEDICARE, OTHER, SELFPAY ==
--- NOTE | ~2023-01-08 | MR_ITS ---
MR LUMBAR SPINE WITHOUT AND WITH CONTRAST CLINICAL INFORMATION: Lumbar region radiculopathy. COMPARISON: Lumbar spine MRI 03/09/2011. TECHNIQUE: MRI of the lumbar spine was obtained using routine sequences with and without contrast. Intravenous contrast: Gadavist 7.5 mL FINDINGS: There is transitional anatomy. For the purposes of this report, S1 is lumbarized sharing a rudimentary disc with S2 and there are hypoplastic ribs versus articulating transverse processes at L1. Please correlate with plain films prior to any percutaneous or surgical intervention. Vertebral body heights are maintained. There is moderate posterior disc volume loss at L3-L4. There is severe disc volume loss at L5-S1. Disc desiccation at all lumbar levels. Surgical hardware not diagnostically assessed on MRI. Conus terminates at the L1-L2 level. There is no additional bone marrow edema. There are no acute fractures. There are no suspicious intraosseous lesions. There are multilevel endplate osteophytes. There is paraspinal muscular atrophy bilaterally. At L1-L2, there is a new diffuse annular disc bulge that mildly narrows the central canal. There is no foraminal stenosis. At L2-L3, and there is a new diffuse annular disc bulge and there is mild bilateral facet arthropathy and ligamentum flavum thickening. There is no central canal stenosis and there is no foraminal stenosis. At the junctional L3-L4 level, there is a diffuse annular disc bulge and there is moderate bilateral facet arthropathy, ligamentum flavum thickening, and prominent dorsal epidural fat resulting in significantly worsening severe central canal stenosis and moderate bilateral foraminal stenosis. At L4-L5, there are postoperative changes following laminectomy and posterior instrumented fusion. There is diffuse osteophytic ridging and bilateral facet arthropathy resulting in mild bilateral foraminal encroachment. No central canal stenosis. At L5-S1, there is grade 2 degenerative anterolisthesis. There are postoperative changes following laminectomy and posterior instrumented fusion. There is no central canal stenosis. Uncovered disc osteophyte and osteophytic ridging result in left greater then right foraminal encroachment with mass effect on the exiting left greater then right L5 nerve roots. At the S1-S2 transitional level, the disc contour is normal and there is no central canal stenosis nor foraminal stenosis. MR/MR lumbar spine wo/w con IMPRESSION: - There is transitional anatomy. For the purposes of this report, S1 is lumbarized sharing a rudimentary disc with S2 and there are hypoplastic ribs versus articulating transverse processes at L1. Please correlate with plain films prior to any percutaneous or surgical intervention. - At the junctional L3-L4 level, progressive spondylitic changes and prominent dorsal epidural fat result in significantly worsening severe central canal stenosis and moderate bilateral foraminal stenosis. - At L4-L5, there are postoperative changes following laminectomy and posterior instrumented fusion. - At L5-S1, there are postoperative changes following laminectomy and posterior instrumented fusion. Grade 2 degenerative anterolisthesis at this level contributes to left greater then right foraminal encroachment with mass effect on the exiting left greater then right L5 nerve roots.
[2023-01-08] MEDS: gadobutroL 7.5 ML VIAL IVPUSH (16:55)
== END 2023-01-08 15:45 | disposition home or self-care (01) ==
LOC: HO.MRI 15:44
PROVIDERS: PCP Nurse Practitioner Family; Visit Provider Nurse Practitioner Family
DX: M54.16 Radiculopathy, lumbar region (principal); M51.36 Other intervertebral disc degeneration, lumbar region
CPT/HCPCS: 72158; A9585

== ENCOUNTER 2023-02-03 09:30 | Outpatient (REF) | payer MEDICARE, OTHER, SELFPAY ==
[2023-02-03 10:03] LABS: MANUAL DIFF FLAG NO
[2023-02-03 10:46] LABS: Basophils Percent Auto 0.6 % (0-2); Eosinophils Absolute Auto 0.2 X10*3/uL (0.0-0.4); Eosinophils Percent Auto 3.9 % (0-4); Hematocrit 36.7 % (37.0-47.0); Imm Gran Abs Auto 0.01 X10*3/uL (0.00-0.03); Imm Gran Pct Auto 0.2 % (0.0-0.4); Lymphocytes Absolute Auto 2.3 X10*3/uL (1.2-4.9); Lymphocytes Percent Auto 43.9 % (20-40); Mean Corpuscular HGB Conc 32.7 g/dl (31.0-35.0); Mean Corpuscular Volume 91.8 fL (80.0-98.0); Mean Platelet Volume 12.1 fL (9.4-12.3); Monocytes Absolute Auto 0.3 X10*3/uL (0.1-1.2); Monocytes Percent Auto 6.2 % (2-11); Neutrophils Absolute Auto 2.4 x10*3/uL (2.0-8.3); Neutrophils Percent Auto 45.2 % (45-73); Platelet Count 210 X10*3/uL (160-400); Red Cell Distribution Width 12.6 % (11.0-16.0); White Blood Count 5.2 X10*3/uL (4.8-10.8)
[2023-02-03 11:02] LABS: Estimated Average Glucose 154 mg/dL
[2023-02-03 11:32] LABS: Alanine Aminotransferase 24 U/L (0-31); Albumin Level 4.4 g/dL (3.5-5.0); Alkaline Phosphatase 99 U/L (39-117); Anion Gap 14 (12-20); Aspartate Amino Transferase 21 U/L (5-31); Bilirubin Total 0.2 mg/dL (0.0-1.0); Blood Urea Nitrogen 24 mg/dL (9-16); Calcium 9.4 mg/dL (8.4-10.2); Carbon Dioxide 26 mmol/L (22-29); Chloride 107 mmol/L (96-108); Cholesterol 167 mg/dL (<200); Estimated Glomerular Filt Rate > 60; Glucose Fasting 149 mg/dL (60-99); HDL Cholesterol 46 mg/dL (>40); LDL Cholesterol Calculated 89 mg/dL (<100); Potassium 4.2 mmol/L (3.3-5.1); Sodium 143 mmol/L (135-145); Total Protein 7.7 g/dL (6.5-8.0); Triglycerides 162 mg/dL (<150)
[2023-02-03 11:35] LABS: Vitamin D 25-OH Total 21.1 ng/mL (>30)
== END 2023-02-03 09:31 | disposition home or self-care (01) ==
LOC: HO.LAB 09:30
PROVIDERS: PCP Nurse Practitioner Family; Visit Provider Nurse Practitioner Family
DX: I10 Essential (primary) hypertension (principal); E11.9 Type 2 diabetes mellitus without complications; E55.9 Vitamin D deficiency, unspecified; D64.9 Anemia, unspecified; Z13.220 Encounter for screening for lipoid disorders
CPT/HCPCS: 36415; 80053; 80061; 82306; 83036; 85025

== ENCOUNTER 2023-02-13 09:55 | Outpatient (REF) | payer MEDICARE, OTHER, SELFPAY | END 2023-02-13 09:56 | disposition home or self-care (01) | LOC: HO.HOSX 09:55 | PROVIDERS: PCP Nurse Practitioner Family; Visit Provider Physician Assistant | DX: M48.061 Spinal stenosis, lumbar region without neurogenic claudication (principal); M54.16 Radiculopathy, lumbar region | CPT/HCPCS: 72110 ==

== ENCOUNTER 2023-02-13 09:55 | Outpatient (AMB) | payer MEDICARE, OTHER, SELFPAY ==
--- NOTE | 2023-02-13 10:26 | A.SPINEOV_ITS ---
Intake Intake Visit Reasons: radiculopathy Allergies topiramate [Topamax] Allergy (Intermediate, Verified 11/13/22 11:34) rash Assessment & Plan Assessment & Plan (1) Lumbar radiculopathy: Code(s): M54.16 - Radiculopathy, lumbar region Plan Dear Rachel, Thank you for referring Sydnee to our office today. She is a pleasant 62-year-old female who comes in today with a chief complaint of low back pain with radiation of symptoms down her left lower extremity since 2018. She reports that she had surgery to fix this issue in [place] back by Dr. Tima Starr in 2017, and had lumbar fusion from L4-S1. She also reports a distant history of a laminectomy at and unknown level in the lumbar spine performed by Dr. Navarrete in 2004. She states that she got about 6 months to 1 year of pain relief post fusion surgery from the same pain she is having now, and then began having low back and leg pain once more. She does endorse a history of 3 significant falls since her previous surgery, due to her epilepsy. She reports that most recently she fell on [employer], which was one of her worst falls causing her to ?blackout? and fall into the shower. She cannot recount if she fell onto her buttocks/back, fell forward onto her face/hands, or if she hit her head. She is currently on Keppra b.i.d. to manage this issue. She does not endorse any significant increase in symptoms after any specific fall. Generally speaking the history she provides is difficult to navigate through. She has attempted to utilize qqux-rxv-uoblsls medications such as Tylenol, ibuprofen, and aspirin. She also has attempted to utilize ice, heat, esqx-lhc-nvvsaty pain patches, and pain relief creams. She states she is currently taking gabapentin 200 mg twice daily to help with her nerve pain. She most recently completed a course of physical therapy shortly after [employer] ([place] this year. She also endorses a history of several injections completed at [facility] in [facility]. She states that none of her previous injections have provided any pain / symptom relief. PMH: Epilepsy, migraines, T2DM (Last A1C 7.0 per chart review on 02/03/23), unspecified anxiety, unspecified depression, panic attacks, high blood pressure, hyperlipidemia, asthma, bilateral carpal tunnel syndrome. Social hx: Patient does not smoke, reports no substance use. Medications: Keppra, gabapentin, baby aspirin, fish oil, lisinopril, atorvastatin metformin, omeprazole, sertraline, hydrochlorothiazide, albuterol. Allergies: Topamax. Physical exam: The patient has 5/5 strength in her upper and lower extremities. She does elicit pain in her low back when engaging full strength with dorsiflexion/knee flexion, but is able to maintain 5/5. She has some nonspecific feeling of numbness that is intermittent in her bilateral palms. The rest of her sensation is grossly intact. Reflexes are 2+ intact in her upper and lower extremities. The patient ambulates well, and rises from a seated position without difficulty. No notable ataxia. (+) Phalen's bilaterally. (-) Tinel's at wrist bilaterally. (-) clonus. (-) Greene's. (- ) Babinski's. (-) straight leg raise bilaterally. Imaging review: MRI of the lumbar spine completed here at [facility] shows posterior instrumented fusion at L4-5, L5-S1 with 5 pedicle screws. There is no evidence of cage placement. She does have a grade 2 spondylolisthesis between L5-S1 which appears to be included in the fusion. She does seem to have moderate-severe central canal stenosis at L3-4 causing moderat e-severe foraminal stenosis on both sides. There is also epidural fat impinging on the dorsal side of the central canal at this level. Some mass effected reported in MRI causing L and right sided formainal impingement at L5-S1, but it is difficult to accurately evaluate this due to instrumentation aritfact. X-ray imaging shows no new instability. Impression: Sydnee is a pleasant 62-year-old female comes in today with a chief complaint of longstanding low back pain with radiation into her left lower extremity. The symptoms that she describes are most consistent with a left sided S1 radiculopathy, which may be due to the continued lithesis shown at L5- S1 despite fusion at this level. Also of concern is the patient's severe central canal stenosis at L3-4. We will need to obtain a few different things to aide us in deciding the best course for this patient. I would like to have her injection records from [facility]. I would also like to have a set of flexion-extension x-rays completed so they can be reviewed with Dr. Mahajan after radiology reads them to see if there is any additional instability shown in the lumbar spine. I will also need to review this MRI with Dr. Mahajan to see if he can better identify the significant left sided foraminal stenosis at L5-S1 described in the MRI report. He will need to decide if this is significant enough for revision of her instrumented fusion that was completed in [place], or if she should continue to pursue management of this issue with physiatry alone. Thank you for allowing us to care for your patient. The total time spent with this visit with this patient was 60 minutes reviewing history, physical exam, MRI imaging review, and implementation of treatment plan or further diagnostic testing Linden Mahajan MD,PhD [facility] Orders: Orders XR lumbar spine 4V min Today M48.061 - Spinal stenosis, lumbar region without neurogenic claudication, M54.16 - Radiculopathy, lumbar region Coding Level of Care Code New Pt Level 5 (18723) Diagnoses Lumbar radiculopathy M54.16
== END 2023-02-13 10:54 | disposition home or self-care (01) ==
PROVIDERS: PCP Nurse Practitioner Family; Referring Provider Nurse Practitioner Family; Visit Provider Physician Assistant
DX: M54.16 Radiculopathy, lumbar region (principal)
CPT/HCPCS: 99205

== ENCOUNTER 2023-02-28 09:47 | Outpatient (AMB) | payer MEDICARE, OTHER, SELFPAY ==
--- NOTE | 2023-02-28 10:04 | HO.SPINEOV ---
Intake Intake Visit Reasons: second evaluation Intake Note: Mrs. Langston is here today for a 2nd evaluation. Allergies topiramate [Topamax] Allergy (Intermediate, Verified 11/13/22 11:34) rash Assessment & Plan Assessment & Plan (1) Lumbar stenosis with neurogenic claudication: Code(s): M48.062 - Spinal stenosis, lumbar region with neurogenic claudication (2) Spondylolisthesis, lumbar region: Code(s): M43.16 - Spondylolisthesis, lumbar region (3) Cervical radiculopathy due to degenerative joint disease of spine: Code(s): M47.22 - Other spondylosis with radiculopathy, cervical region (4) Hip pain, left: Code(s): M25.552 - Pain in left hip Plan Dear colleague, On 02/28/2023, I saw for follow-up your Sydnee Lamar. She has several complaints. The 1st 1 is pain radiating down her left leg to the top of her foot. She underwent surgery in [place] in 2017 for the symptoms where she underwent an L4-S1 fusion. The symptoms were for 1 year. A Second set of symptoms consists of back pain and bilateral leg cramps numbness and discomfort with walking and standing. Sitting improves the symptoms. A 3rd complaint is left hip pain. If final complaint is pain radiating from the neck to the left side of her arm and scapula. On exam, inward and outward rotation of the left hip is painful. I reviewed a standing x-ray with flexion-extension and an MRI of the lumbar spine in detail with the patient. She has adjacent degenerative disc disease L3-4 with moderate to severe spinal stenosis and a scoliosis due to disc collapse. There is no imaging of the hip or neck. Her clinical history and imaging is positive for back pain with neurogenic claudication due to adjacent degenerative disc disease L3-4 with associated scoliosis and spinal stenosis. The treatment for that would be a minimally invasive correction of her degenerative disc disease and scoliosis through an oblique lumbar interbody fusion. I briefly described the procedure. However, I would like her to be evaluated by an orthopedic surgeon for her left hip and I will obtain an MRI of the cervical spine before considering a lumbar fusion surgery. I will see the patient back after consult with orthopedic service and the MRI of the cervical spine. I spent 40 minutes in this consult reviewing imaging and discussing plan of care. Carlos Alberto Mahajan MD, PhD Spine Fellowship Trained Neurosurgeon Director, [facility] [place] [facility] Orders: Orders MR cervical spine wo con Today M47.22 - Other spondylosis with radiculopathy, cervical region Referrals Orthopedics Referral M25.552 - Pain in left hip, M54.16 - Radiculopathy, lumbar region Coding Level of Care Code Est Pt Level 5 (47587) Diagnoses Lumbar stenosis with neurogenic claudication M48.062 Spondylolisthesis, lumbar region M43.16 Cervical radiculopathy due to degenerative joint disease of spine M47.22 Hip pain, left M25.552
== END 2023-02-28 10:37 | disposition home or self-care (01) ==
PROVIDERS: PCP Nurse Practitioner Family; Visit Provider Neurological Surgery
DX: M48.062 Spinal stenosis, lumbar region with neurogenic claudication (principal); M43.16 Spondylolisthesis, lumbar region; M47.22 Other spondylosis with radiculopathy, cervical region; M25.552 Pain in left hip
CPT/HCPCS: 99215

== ENCOUNTER → 2023-02-28 09:47 | Outpatient (BNVA) | payer MEDICARE, OTHER, SELFPAY | PROVIDERS: PCP Nurse Practitioner Family; Visit Provider Neurological Surgery | DX: M48.062 Spinal stenosis, lumbar region with neurogenic claudication (principal); M43.16 Spondylolisthesis, lumbar region; M47.22 Other spondylosis with radiculopathy, cervical region; M25.552 Pain in left hip | CPT/HCPCS: 99212 ==

== ENCOUNTER 2023-04-03 08:27 | Outpatient (REF) | payer MEDICARE, OTHER, SELFPAY ==
--- NOTE | ~2023-04-03 | XR_ITS ---
EXAMINATION: XR HIP, LEFT Pelvis CLINICAL INFORMATION: Pain in the hip COMPARISON: X-ray the left hip May 2021 TECHNIQUE: Two views of the left hip. Single view pelvis FINDINGS: Pelvis and left hip: No joint space narrowing of the left hip. Surrounding bone and soft tissues normal. Remaining bone and joints in the pelvis normal. Incidental note made of postsurgical changes in the lower lumbar sacral spine with orthopedic hardware noted. XR/XR hip LT w PEL1V IMPRESSION: 1. No abnormality of the left hip. 2. Postsurgical changes in the lumbar sacral spine.
== END 2023-04-03 08:28 | disposition home or self-care (01) ==
LOC: HO.HOSX 08:27
PROVIDERS: Visit Provider Physician Assistant
DX: M25.552 Pain in left hip (principal); M54.16 Radiculopathy, lumbar region
CPT/HCPCS: 73502; 99202

== ENCOUNTER 2023-04-03 09:48 | Outpatient (AMB) | payer MEDICARE, OTHER, SELFPAY ==
[2023-04-03 09:53] VITALS: BMI 28.2
--- NOTE | 2023-04-03 09:53 | A.OFFVIS_ITS ---
Intake Vital Signs 04/03/23 09:53 Height 5 ft 2 in Weight 154 lb BMI 28.2 Intake Visit Reasons: New Pt - Left hip pain Intake Note: Sydnee is a 62 year old female who presents today as a new patient for a evaluation of her left hip pain. Lumbar spine MRI done on 01/08/23. Hx of Injury in 2003 when she feel with a patient. Patient reports ongoing pain and it is getting worse over the years. She states that her pain is mainly in the groin area and it moves down her leg. Hx of PT w/ no relief. Allergies topiramate [Topamax] Allergy (Intermediate, Verified 04/03/23 10:01) Seizure HPI New Pt - Left hip pain HPI Details 62-year-old female who presents in the o ice today, as a new patient, for an evaluation of left hip pain. Per the note from Dr. [facility] Alberto Mahajan [facility]: On exam, inward and outward rotation of the left hip is painful. I reviewed a standing x-ray with flexion-extension and an MRI of the lumbar spine in detail with the patient. She has adjacent degenerative disc disease L3-4 with moderate to severe spinal stenosis and a scoliosis due to disc collapse. There is no imaging of the hip or neck. Her clinical history and imaging is positive for back pain with neurogenic claudication due to adjacent degenerative disc disease L3-4 with associated scoliosis and spinal stenosis. The treatment for that would be a minimally inv asive correction of her degenerative disc disease and scoliosis through an oblique lumbar interbody fusion. I briefly described the procedure. However, I would like her to be evaluated by an orthopedic surgeon for her left hip and I will obtain an MRI of the cervical spine before considering a lumbar fusion surgery. I will see the patient back after consult with orthopedic service and the MRI of the cervical spine. While in the office today the patient states she was injured at work when she fell with a patient in 2003. She states her pain has increased over the years. She states she used to walk with a cane after back surgery in [place]. She claims her pain is in the groin but radiates around to the buttocks. She confirms a history of physical therapy with no relief. [facility] Medical History Insomnia Asthma High cholesterol Seizures Diabetes Surgical History History of breast biopsy History of back surgery H/O tubal ligation H/O: hysterectomy Family History Mother Diabetes Sister Colon cancer Brother Cirrhosis of liver Social History Housing: House Alcohol intake: current Alcohol intake frequency: holidays/special occasions only Comment: pt states arm is sore--had previous sx on arm Patient Tobacco Use Status: Former Tobacco user Quit Date: 2012 Tobacco use type: Cigarette e-Cigarette/Vaping Use: Never Used Second Hand Smoke Exposure: Yes service: No Current occupational status: retired Cognitive needs: Yes (cane/ walker) Hearing needs: No Vision needs: Yes (glasses) Review of Systems Const All systems reviewed & are unremarkable except as noted in HPI and below Physical Exam Vital Signs: BMI result Body Mass Index 28.2 Const General: cooperative and no acute distress Orientation/consciousness: patient oriented x3 Resp Effort & Inspection: normal respiratory effort and able to speak in complete sentences Cardio Peripheral pulses: Peripheral pulses 2+ throughout Skin General skin exam: no rashes or lesions noted Neuro General: patient oriented x3 Extrem Other: Left hip: Normal to inspection. No ecchymosis, erythema, or edema. Full hip ROM in all planes. Pain with internal and external rotation in the groin and buttocks. No tenderness to palpation over the greater trochanteric bursa. 4/5 strength with resisted hip flexion, knee extension, abduction, and abduction. Able to perform straight leg raise with reporoduction of symptoms. NVI. Assessment & Plan Assessment & Plan (1) Lumbar radiculopathy: Code(s): M54.16 - Radiculopathy, lumbar region Plan Ms. Langston is a 62-year-old female who presents in the office today, as a new patient, for an evaluation of left hip pain. While in the office today the patient states she was injured at work when she fell with a patient in 2003. She states her pain has increased over the years. She claims her pain is mainly in the groin area and radiates around to the buttocks. She confirms a history of physical therapy with no relief. She is currently pending spine surgery with Dr. Mahajan with radicular symptoms affecting bilateral lower extremities. I have recommended for her to continue to follow up with Dr. Orourke for further treatment of her lumbar spine. In the event the patient does not find relief of the hip pain with further treatment of the spine she can contact the office and we will further evaluate for a possible labral tear. Follow up with Orthopedics will be PRN, or sooner if needed. X-rays of the left hip which were obtained while in the office today and were reviewed by me, Whitley Stubbs PA-C, revealed no acute fracture or dislocation. Mild degenerative changes. MRI of the lumbar spine, obtained on 01/08/2023, revealed: - There is transitional anatomy. For the purposes of this report, S1 is lumbarized sharing a rudimentary disc with S2 and there are hypoplastic ribs versus articulating transverse processes at L1. Please correlate with plain films prior to any percutaneous or surgical intervention. - At the junctional L3-L4 level, progressive spondylitic changes and prominent dorsal epidural fat result in significantly worsening severe central canal stenosis and moderate bilateral foraminal stenosis. - At L4-L5, there are postoperative changes following laminectomy and posterior instrumented fusion. - At L5-S1, there are postoperative changes following laminectomy and posterior instrumented fusion. Grade 2 degenerative anterolisthesis at this level contributes to left greater then right foraminal encroachment with mass effect on the exiting left greater then right L5 nerve roots. X-rays of the left hip, obtained on 05/23/2021 are grossly unremarkable. Orders: Orders XR hip LT w PEL1V 04/03/23 M25.559 - Pain in unspecified hip Patient Instructions: Scribed by Mehnaz Lancaster medical certification specialist, for Whitley Stubbs PA-C on 04/03/2023 at 9:59 am, EST. Coding Level of Care Code New Pt Level 4 (55121) Diagnoses Lumbar radiculopathy M54.16
== END 2023-04-03 10:11 | disposition home or self-care (01) ==
PROVIDERS: PCP Nurse Practitioner Family; Visit Provider Physician Assistant
DX: M54.16 Radiculopathy, lumbar region (principal)
CPT/HCPCS: 99203; 99213

== ENCOUNTER 2023-04-17 08:27 | Outpatient (REF) | payer MEDICARE, OTHER, SELFPAY ==
--- NOTE | ~2023-04-17 | MR_ITS ---
EXAMINATION: MR CERVICAL SPINE WITHOUT CONTRAST CLINICAL INFORMATION: Spondylosis with radiculopathy, cervical region. COMPARISON: None available. TECHNIQUE: MRI of the cervical spine was obtained using routine sequences without contrast. FINDINGS: The visualized posterior fossa is unremarkable. Straightening of the normal cervical lordosis. Stepwise grade 1 anterolisthesis from C2 through C6. Mildly heterogeneous bone marrow signal is likely degenerative. No acute bone marrow abnormality. The vertebral body heights are preserved. Multilevel disc desiccation without significant disc height loss. The spinal cord is normal in caliber. No abnormal cord signal. C2-C3: Bilateral facet arthrosis. No significant spinal canal or neural foraminal narrowing. C3-C4: Disc osteophyte complex, left uncovertebral hypertrophy, and bilateral facet arthrosis. No significant spinal canal stenosis. Moderate left neural foraminal narrowing. C4-C5: Disc osteophyte complex, ofnrb-nkczqrr-gjlm-left uncovertebral hypertrophy, and bilateral facet arthrosis. No significant spinal canal stenosis. Moderate right neural foraminal narrowing. C5-C6: Disc osteophyte complex and bilateral uncovertebral hypertrophy. No significant spinal canal or neural foraminal narrowing. C6-C7: Disc osteophyte complex. No significant spinal canal or neural foraminal narrowing. C7-T1: No significant spinal canal or neural foraminal narrowing. The paravertebral soft tissues are unremarkable. The visualized lung apices are clear. MR/MR cervical spine wo con IMPRESSION: Multilevel cervical spondylosis without significant spinal canal narrowing, cord compression, or cord signal abnormality. There is moderate left neural foraminal narrowing at C3-C4 and moderate right neural foraminal narrowing at C4-C5.
== END 2023-04-17 08:28 | disposition home or self-care (01) ==
LOC: HO.MRI 08:27
PROVIDERS: PCP Internal Medicine; Visit Provider Neurological Surgery
DX: M47.22 Other spondylosis with radiculopathy, cervical region (principal)
CPT/HCPCS: 72141

== ENCOUNTER 2023-05-02 09:48 | Outpatient (AMB) | payer MEDICARE, OTHER, SELFPAY ==
--- NOTE | 2023-05-02 10:08 | MHC.OFFVIS ---
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 She is doing well with no concerns. Attempting to eat a healthy diet with calcium and vitamin D and stays active. Currently sexually active. Denies any irritation. Admits to dryness, pain, spotting after intimacy. Not using any jrkr-bus-gxddzmo products. Last mammogram; not UTD. history of right breast biopsy, and excessive tissue under her right armpit area she would like removed. She reports it was evaluated years ago in [place]. Colonoscopy is UTD. Denies any family history of breast or ovarian cancer. FH-colon cancer-sister. [facility] Medical History Cataract Insomnia Asthma High cholesterol Seizures Diabetes Surgical History H/O eye surgery History of breast biopsy History of back surgery H/O tubal ligation H/O: hysterectomy Family History Mother Diabetes Sister Colon cancer Brother Cirrhosis of liver Social History Housing: House Alcohol intake: current Alcohol intake frequency: holidays/special occasions only Comment: pt states arm is sore--had previous sx on arm Patient Tobacco Use Status: Former Tobacco user Quit Date: 2012 Tobacco use type: Cigarette e-Cigarette/Vaping Use: Never Used Second Hand Smoke Exposure: Yes service: No Current occupational status: retired Cognitive needs: Yes (cane/ walker) Hearing needs: No Vision needs: Yes (glasses) Female Reproductive History Menstrual control method: permanent sterilization Permanent Sterilization: BTL Menopause type: surgical Total pregnancies: 4 Full term: 3 Number of Living Children: 3 Date of Mammogram: 03/11/21 (Birad 2) Review of Systems Const All systems reviewed & are unremarkable except as noted in HPI and below Reports as per HPI Eyes Reports no additional complaints ENT Reports no additional complaints Card Reports no additional complaints Resp Reports no additional complaints GI Reports as per HPI and Reports no additional complaints Reports as per HPI Musc Reports no additional complaints Skin/Breast Reports as per HPI Neuro Reports no additional complaints Psych Reports no additional complaints Endo Reports no additional complaints Blu/Lymph Reports no additional complaints Aller/Immun Reports no additional complaints Physical Exam Vital Signs: Last Vital Signs BP 122/64 05/02/23 10:09 BMI result Body Mass Index 28.7 Const General: cooperative, healthy appearing, no acute distress, well developed and alert Orientation/consciousness: patient oriented x3 HEENT Head: Yes normal to inspection Eyes General: appearance normal, both eyes and all related structures Neck Neck: Yes normal visual inspection Thyroid: Thyroid normal Chest Chest palpation & inspection: normal inspection of the chest and other (no puckering, dimpling, peau de orange, retraction, discharge, masses) Breast/axilla inspection: normal inspection of the breasts Breast/axilla palpation: normal palpation of the breasts Resp Effort & Inspection: normal respiratory effort GI Inspection: Yes normal to inspection Palpation (GI): Soft to palpation Rectal Exam - Female: deferred General: Yes bladder normal to palpation External Female Exam: normal external appearance and normal appearance of the urethra Speculum Exam - Vagina: normal appearance of the vagina, normal palpation, normal vaginal discharge and vagina atrophic Speculum Exam - Cervix: Cervix absent and Other cervical findings present (Vaginal cuff no lesions or nodules) Bimanual exam- vagina & uterus: normal bimanual exam, normal palpation, bladder normal to palpation and uterus absent Bimanual Exam- Adnexa, other: no masses Skin General skin exam: no rashes or lesions noted Rashes: no rashes Neuro General: patient oriented x3 Cognition (Neuro): normal cognition Extrem Other: Fullness under right axilla General: Yes normal to inspection Psych Attitude: cooperative Thought process: Normal thought process present Assessment & Plan Assessment & Plan (1) Encounter for well woman exam with routine gynecological exam: Code(s): Z01.419 - Encounter for gynecological examination (general) (routine) without abnormal findings Plan Discussed: Current recommendations for pap smears per ASCCP guidelines. Breast awareness, periodic self breast exams and yearly mammogram. Order placed for her mammogram. Maintain a healthy lifestyle, well balanced diet including Calcium 1,200 mg and Vitamin D 600 IU daily, and routine exercise. Discussed vaginal moisturizer and lubrications such as Replens. Contact the office with any postmenopausal bleeding. Follow up with her primary care regarding her excessive tissue under the right axilla. Patient verbalizes understanding and agrees to the plan of care. She was given opportunity to ask questions and all questions were answered to the best of my ability. 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 This note is constructed using voice recognition software. While every effort has been made to ensure accuracy, advertising specialist errors may have been included. Orders: Orders MM tomosynthesis screening BI Today Z12.31 - Encounter for screening mammogram for malignant neoplasm of breast Coding Level of Care Code Est Pt Prev Care 40-64y(07775) Diagnoses Encounter for well woman exam with routine gynecological exam Z01.419
[2023-05-02 10:09] VITALS: BP 122/64; BMI 28.7
== END 2023-05-02 11:35 | disposition home or self-care (01) ==
PROVIDERS: PCP Nurse Practitioner Family; Visit Provider Advanced Practice Midwife
DX: Z01.419 Encounter for gynecological examination (general) (routine) without abnormal findings (principal)
CPT/HCPCS: 99396

== ENCOUNTER → 2023-05-02 09:48 | Outpatient (BNVA) | payer OTHER, MEDICARE, SELFPAY | PROVIDERS: PCP Nurse Practitioner Family; Visit Provider Advanced Practice Midwife ==

== ENCOUNTER 2023-05-09 08:45 | Outpatient (AMB) | payer MEDICARE, OTHER, SELFPAY ==
--- NOTE | 2023-05-09 08:50 | A.SPINEOV_ITS ---
Intake Intake Visit Reasons: discuss sx Intake Note: Ms. Langston is here today for F/u to Discuss surgery. Online Advertising Manager Required: No Allergies topiramate [Topamax] Allergy (Intermediate, Verified 05/02/23 10:09) Seizure Assessment & Plan Assessment & Plan (1) Lumbar spinal stenosis due to adjacent segment disease after fusion procedure: Code(s): M48.061 - Spinal stenosis, lumbar region without neurogenic claudication; M51.36 - Other intervertebral disc degeneration, lumbar region Plan On 05/09/2023, I saw for follow-up your Sydnee Lamar. She suffering from adjacent degenerative disc disease L3-4 with symptoms of back pain and neurogenic claudication. During the initial visit she was also complaining of left-sided neck pain radiating into arm. Obtain an MRI of the cervical spine which shows moderate C4 foraminal stenosis on the left. I do not think this explains her symptoms as her symptoms are going all the way down into her left arm. I offered her an epidural steroid injection, which she declined. Therefore, we are back at her initial complaint. I offered her a minimally invasive correction of the adjacent degenerative disc disease to indirectly decompress her spinal canal and treat her neurogenic claudication and back pain. I described the oblique lumbar interbody fusion and possible complications. We will also have to revise her posterior instrumentation L4-S1 and reinsert instrumentation L3-L4. She is scheduled for June 18. She will get preoper ative clearance from your office on May 22. She will also receive an appointment to see the anesthesiologist. I also recommended to stop aspirin 1 week prior to surgery and fish oil 2 weeks prior to surgery. I spent 20 minutes in this consult. Thank you for letting me take care of your patient. Carlos Alberto Mahajan MD, PhD Spine Fellowship Trained Neurosurgeon Director, [facility] Coding Level of Care Code Est Pt Level 3 (16311) Diagnoses Lumbar spinal stenosis due to adjacent segment disease after fusion procedure M48.061; M51.36
== END 2023-05-09 09:30 | disposition home or self-care (01) ==
PROVIDERS: PCP Nurse Practitioner Family; Visit Provider Neurological Surgery
DX: M48.061 Spinal stenosis, lumbar region without neurogenic claudication (principal); M51.36 Other intervertebral disc degeneration, lumbar region
CPT/HCPCS: 99213

== ENCOUNTER → 2023-05-09 08:45 | Outpatient (BNVA) | payer OTHER, MEDICARE, SELFPAY | PROVIDERS: PCP Nurse Practitioner Family; Visit Provider Neurological Surgery | DX: M48.061 Spinal stenosis, lumbar region without neurogenic claudication (principal); M51.36 Other intervertebral disc degeneration, lumbar region | CPT/HCPCS: 99212 ==

== ENCOUNTER 2023-05-23 10:54 | Outpatient (REF) | payer MEDICARE, OTHER, SELFPAY ==
[2023-05-23 13:03] LABS: MANUAL DIFF FLAG NO
[2023-05-23 13:47] LABS: Basophils Percent Auto 0.8 % (0-2); Eosinophils Absolute Auto 0.2 X10*3/uL (0.0-0.4); Eosinophils Percent Auto 3.3 % (0-4); Hematocrit 34.5 % (37.0-47.0); Hemoglobin 11.4 g/dl (12.0-16.0); Imm Gran Abs Auto 0.02 X10*3/uL (0.00-0.03); Imm Gran Pct Auto 0.4 % (0.0-0.4); Lymphocytes Absolute Auto 1.6 X10*3/uL (1.2-4.9); Lymphocytes Percent Auto 32.5 % (20-40); Mean Corpuscular Hemoglobin 29.9 pg (27.0-33.0); Mean Corpuscular Volume 90.6 fL (80.0-98.0); Mean Platelet Volume 12.2 fL (9.4-12.3); Monocytes Absolute Auto 0.2 X10*3/uL (0.1-1.2); Neutrophils Absolute Auto 2.8 x10*3/uL (2.0-8.3); Platelet Count 180 X10*3/uL (160-400); Red Blood Count 3.81 X10*6/uL (4.20-5.50); Red Cell Distribution Width 12.3 % (11.0-16.0); White Blood Count 4.8 X10*3/uL (4.8-10.8)
[2023-05-23 14:20] LABS: Anion Gap 12 (12-20); Blood Urea Nitrogen 23 mg/dL (9-16); C Reactive Protein < 0.10 mg/dL (< or = 0.50); Calcium 9.3 mg/dL (8.4-10.2); Carbon Dioxide 26 mmol/L (22-29); Chloride 106 mmol/L (96-108); Estimated Glomerular Filt Rate > 60; Glucose Random 250 mg/dL (60-115); Potassium 3.8 mmol/L (3.3-5.1); Sodium 140 mmol/L (135-145)
[2023-05-23 14:23] LABS: Erythrocyte Sedimentation Rate 8 MM/HR (0-20)
[2023-05-23 14:24] LABS: Estimated Average Glucose 154 mg/dL
== END 2023-05-23 10:55 | disposition home or self-care (01) ==
LOC: HO.10HDL 10:54
PROVIDERS: Visit Provider Internal Medicine
DX: Z01.818 Encounter for other preprocedural examination (principal); I10 Essential (primary) hypertension; E11.9 Type 2 diabetes mellitus without complications; H57.12 Ocular pain, left eye
CPT/HCPCS: 36415; 80048; 83036; 85025; 85652; 86140

== ENCOUNTER 2023-06-08 10:49 | Outpatient (REF) | payer MEDICARE, OTHER, SELFPAY ==
--- NOTE | ~2023-06-08 | MM_ITS ---
EXAMINATION: MM SCREENING DIGITAL BREAST TOMOSYNTHESIS, BILATERAL CLINICAL INFORMATION: Screening. Asymptomatic. COMPARISON: Mammography: This study is compared with prior exams dating back to 2013. TECHNIQUE: Digital breast tomosynthesis is performed in both the craniocaudal and mediolateral oblique views along with computer-aided detection (CAD). Synthesized 2D images are generated from the tomosynthesis. FINDINGS: There are scattered areas of fibroglandular density (ACR BI-RADS breast composition Category b). There are no significant masses, abnormal calcifications, or other abnormalities. There is a tissue marker present in the right breast from prior benign percutaneous biopsy. There are a few, unchanged, benign calcifications of the left breast. MM/MM tomosynthesis screening BI IMPRESSION: No mammographic evidence of malignancy. ASSESSMENT: BI-RADS BI-RADS 2 - Benign Findings RECOMMENDATION: Routine annual mammography screening. 1 year F/U This examination should not preclude the clinical evaluation of a suspicious palpable abnormality. This patient's information was entered into a reminder system with a target due date for their next mammogram.
== END 2023-06-08 10:50 | disposition home or self-care (01) ==
LOC: HO.MAMMO 10:49
PROVIDERS: PCP Internal Medicine; Visit Provider Advanced Practice Midwife
DX: Z12.31 Encounter for screening mammogram for malignant neoplasm of breast (principal)
CPT/HCPCS: 77063; 77067

== ENCOUNTER → 2023-06-08 11:30 | Outpatient (BNV) | payer MEDICARE, OTHER, SELFPAY | PROVIDERS: PCP Internal Medicine; Visit Provider Radiology Diagnostic Radiology | DX: Z12.31 Encounter for screening mammogram for malignant neoplasm of breast (principal) | CPT/HCPCS: 77063; 77067 ==

== ENCOUNTER 2023-06-19 06:07 | Inpatient (IN) | payer MEDICARE, OTHER, SELFPAY ==
[2023-06-06 12:14] VITALS: BP 125/60; PULSE 64; RESP 20; O2SAT 98; BMI 28.9
--- NOTE | 2023-06-07 11:35 | HP_ITS ---
DATE OF SERVICE: 06/19/2023 HISTORY OF PRESENT ILLNESS: The patient is a 62-year-old female, who is seen in the office on 05/23/2023 for preop evaluation prior to back surgery. The patient had previously been seen in February prior to preop evaluation for cataract surgery with Dr. Roque. Prior to that, the patient had been seen for 2 years. PAST MEDICAL HISTORY: Significant for seizure disorder, gnp-iyyypvm-rpmpcqnzy diabetes, migraines, glaucoma, gastroesophageal reflux disease, elevated cholesterol, history of prior back surgery, hay fever, hypertension. PRESENT MEDICATIONS: Hydroxyzine 25 mg at bedtime as needed, Keppra 1250 mg p.o. b.i.d., metformin 500 mg a day, lisinopril 10 mg a day, hydrochlorothiazide 12.5 mg a day, baby aspirin 81 mg a day, pantoprazole 40 mg a day, atorvastatin 40 mg a day. She uses an albuterol inhaler as needed and Fioricet as needed for the migraines. PAST SURGICAL HISTORY: She has had prior back surgery x2, partial hysterectomy in 2013, left shoulder and elbow surgery previously. FAMILY HISTORY: Mother at 64 from an [place]. Father in a motor vehicle accident, she was unsure of his age. She has 4 brothers, 2 sisters. Two brothers are . SOCIAL HISTORY: She is , has 3 children. REVIEW OF SYSTEMS: Weight is up 6 pounds from the last time. Occasional headaches. No chest pains or palpitations. Occasional shortness of breath and wheezing. No complaints of peripheral edema. No fevers or chills. Occasional night sweats. No abdominal pain. Some heartburn. No dysuria, but occasional nocturia. Musculoskeletal; she has arthritis in the knees and chronic back pain. No speech or memory changes. Sleep is disrupted by her back. Appetite is normal. She does get seasonal allergies. No complaints of skin rashes. PHYSICAL EXAMINATION: GENERAL: She is awake and alert, in no distress. VITAL SIGNS: Temperature is 97.2, pulse 72, respirations 12, blood pressure 118/60, oxygen is 95% on room air. Weight is 162, height is 5 feet 6 inches. HEENT: Clear. NECK: Supple. No lymph nodes, bruits, or masses. HEART: Sounds S1, S2. Regular rate and rhythm. LUNGS: Clear. ABDOMEN: Soft and nontender with positive bowel sounds. EXTREMITIES: No clubbing, cyanosis, or edema. 2+ pulses. She moves all extremities. No bruising identified. PSYCHIATRIC: Affect is appropriate. NEUROLOGIC: Cranial nerves II through XII are intact. ALLERGIES: SHE HAS NO REPORTED ALLERGIES TO MEDICINES.??? She does not smoke. ASSESSMENT AND PLAN: She is medically stable for the proposed back surgery. Diabetes is in good control with a hemoglobin A1c of 7.0 on May 22. Electrolytes and kidney function are normal. She is mildly anemic. She sees a specialist for glaucoma. She is on p.r.n. Fioricet for migraines. Acid reflux is under control and blood pressure is in good control. Reyes Gregg MD FC/MODL / [id number]
--- NOTE | 2023-06-18 09:33 | HO.ANESPROP2 ---
Documented by User: Stephania Espinoza NP 06/18/23 09:35 HPI - Anesthesia Eval Consult details Narrative: 62yo F for L3-4 Oblique Lumbar Interbody Fusion with Removal of Posterior Instrumentation Medically optimized per PCP YUDITH brown with Dr Lee 06/06/23 [facility] Active Problems Active Problems: All Active Problems Lumbar spinal stenosis due to adjacent segment disease after fusion procedure (Acute) Hip pain, left (Acute) Cervical radiculopathy due to degenerative joint disease of spine (Acute) Lumbar stenosis with neurogenic claudication (Acute) Lumbar radiculopathy (Acute) Spinal stenosis of lumbar region with radiculopathy (Acute) Spondylolisthesis, lumbar region (Acute) Depression (Acute) Generalized anxiety disorder (Acute) Sacroiliitis (Acute) Muscle spasm (Acute) Lumbar post-laminectomy syndrome (Acute) Sacroiliac joint pain (Acute) Lumbar spondylosis (Acute) Lumbar degenerative disc disease (Acute) Black head (Acute) Lumbar back pain with radiculopathy affecting left lower extremity (Acute) Anemia (Acute) Vitamin D deficiency (Acute) Hypertension (Acute) Migraines (Acute) GERD (gastroesophageal reflux disease) (Acute) Panic attacks (Acute) Anxiety and depression (Acute) Bacterial vaginosis (Acute) Well woman exam (Acute) Insomnia (Acute) Seizures (Acute) Asthma (Acute) Diabetes (Acute) Past Medical History Medical History (Updated 06/06/23 @ 12:05 by Janeen Scott RN) Back pain Lumbar degenerative disc disease Panic attacks Anxiety Depression GERD (gastroesophageal reflux disease) Migraines HTN (hypertension) Insomnia Asthma High cholesterol Seizures Diabetes Family History Family History Mother Diabetes Sister Colon cancer Brother Cirrhosis of liver Family history of problems with anesthesia: No Surgical History Surgical History (Updated 06/06/23 @ 12:07 by Janeen Scott RN) Hx of foot surgery History of esophagogastroduodenoscopy (EGD) H/O colonoscopy H/O eye surgery History of breast biopsy History of back surgery H/O tubal ligation H/O: hysterectomy History of Problems with Anesthesia: No Social History Social History Housing: House Are you a primary residential care facility manager to a significant other at home: No Do you presently have visiting nurse or other home services: No Alcohol intake: current Alcohol intake frequency: holidays/special occasions only Comment: pt states arm is sore--had previous sx on arm Patient Tobacco Use Status: Former Tobacco user Quit Date: 2012 Tobacco use type: Cigarette Years Smoked: 20 e-Cigarette/Vaping Use: Never Used Second Hand Smoke Exposure: Yes Use of substances other than those prescribed or required for medical reasons: No Have you been hit, kicked, punched, or otherwise hurt by someone within the past year? If so, by whom?: No Are you DNR?: No Advance Directives: No (states /son are primary contacts) Advance Directives Information Provided: Yes (brochure given) Advance Directives on File: No Recently lost weight without trying: No Eating poorly because of decreased appetite: No Nutrition Risks: No Nutritional Risk Poor oral hygiene: No service: No Current occupational status: retired Cognitive needs: Yes (cane/ walker) Hearing needs: No Vision needs: Yes (glasses) Meds Allergies Allergy/AdvReac Type Severity Reaction Status Date / Time topiramate [Topamax] Allergy Intermediate ? Verified 06/06/23 12:00 seizure-patient unsure Home Medications ?Medication ?Instructions ?Recorded ?Confirmed ?Last Taken ?Type vitamin B complex (B 1 tab PO QAM 05/02/23 06/06/23 Unknown History Complex-Vitamin B12 tablet) aspirin 81 mg tablet,delayed 81 mg PO QAM 06/06/23 06/06/23 Unknown History release atorvastatin 40 mg tablet (Lipitor) 40 mg PO BEDTIME 06/06/23 06/06/23 Unknown History cholecalciferol (vitamin D3) 25 25 mcg PO QAM 06/06/23 06/06/23 Unknown History mcg (1,000 unit) capsule lisinopril 10 1 tab PO QAM 06/06/23 06/06/23 Unknown History mg-hydrochlorothiazide 12.5 mg tablet metformin 500 mg tablet 500 mg PO BEDTIME 06/06/23 06/06/23 Unknown History omega 4-juq-fjp-fish oil 1,000 mg 1 cap PO QPM 06/06/23 06/06/23 Unknown History (120 mg-180 mg) capsule (Fish Oil) omeprazole 40 mg capsule,delayed 40 mg PO QAM 06/06/23 06/06/23 Unknown History release sertraline 25 mg tablet 50 mg PO QPM 06/06/23 06/06/23 Unknown History zolpidem 10 mg tablet 10 mg PO BEDTIME PRN Insomnia 06/06/23 06/06/23 Unknown History Exam Height,Weight and Vital Signs: Height 5 ft 2 in Weight 71.668 kg Last Vital Signs Pulse 64 06/06/23 12:14 Resp 20 06/06/23 12:14 BP 125/60 06/06/23 12:14 Pulse Ox 98 06/06/23 12:14 O2 Del Method Room Air 06/06/23 12:14 Pertinent Lab Results Pertinent Lab Results: Laboratory Tests 05/23/23 11:00 WBC 4.8 Hgb 11.4 L Hct 34.5 L Plt Count 180 Sodium 140 Potassium 3.8 Chloride 106 Carbon Dioxide 26 BUN 23 H Creatinine 0.81 Narrative Narrative: EKG 02/2023 NSR @ 68 Assessment and Plan Assessment Anesthesia Assessment: Chart Reviewed Final Anesthetic Review Family History of Problems with Anesthesia: No History of Problems with Anesthesia: No Documented by User: Yodit Stevens MD 06/19/23 07:17 [facility] Past Medical History Medical History (Updated 06/06/23 @ 12:05 by Janeen Scott RN) Back pain Lumbar degenerative disc disease Panic attacks Anxiety Depression GERD (gastroesophageal reflux disease) Migraines HTN (hypertension) Insomnia Asthma High cholesterol Seizures Diabetes Family History Family History Mother Diabetes Sister Colon cancer Brother Cirrhosis of liver Surgical History Surgical History (Updated 06/06/23 @ 12:07 by Janeen Scott RN) Hx of foot surgery History of esophagogastroduodenoscopy (EGD) H/O colonoscopy H/O eye surgery History of breast biopsy History of back surgery H/O tubal ligation H/O: hysterectomy Social History Social History Housing: House Are you a primary residential care facility manager to a significant other at home: No Do you presently have visiting nurse or other home services: No Alcohol intake: current Alcohol intake frequency: holidays/special occasions only Comment: pt states arm is sore--had previous sx on arm Patient Tobacco Use Status: Former Tobacco user Quit Date: 2012 Tobacco use type: Cigarette Years Smoked: 20 e-Cigarette/Vaping Use: Never Used Second Hand Smoke Exposure: Yes Use of substances other than those prescribed or required for medical reasons: No Have you been hit, kicked, punched, or otherwise hurt by someone within the past year? If so, by whom?: No Are you DNR?: No Advance Directives: No (states /son are primary contacts) Advance Directives Information Provided: Yes (brochure given) Advance Directives on File: No Recently lost weight without trying: No Eating poorly because of decreased appetite: No Nutrition Risks: No Nutritional Risk Poor oral hygiene: No service: No Current occupational status: retired Cognitive needs: Yes (cane/ walker) Hearing needs: No Vision needs: Yes (glasses) Meds Allergies Allergy/AdvReac Type Severity Reaction Status Date / Time topiramate [Topamax] Allergy Intermediate ? Verified 06/06/23 12:00 seizure-patient unsure Home Medications ?Medication ?Instructions ?Recorded ?Confirmed ?Last Taken ?Type vitamin B complex (B 1 tab PO QAM 05/02/23 06/06/23 Unknown History Complex-Vitamin B12 tablet) aspirin 81 mg tablet,delayed 81 mg PO QAM 06/06/23 06/06/23 Unknown History release atorvastatin 40 mg tablet (Lipitor) 40 mg PO BEDTIME 06/06/23 06/06/23 Unknown History cholecalciferol (vitamin D3) 25 25 mcg PO QAM 06/06/23 06/06/23 Unknown History mcg (1,000 unit) capsule lisinopril 10 1 tab PO QAM 06/06/23 06/06/23 Unknown History mg-hydrochlorothiazide 12.5 mg tablet metformin 500 mg tablet 500 mg PO BEDTIME 06/06/23 06/06/23 Unknown History omega 2-osa-ixx-fish oil 1,000 mg 1 cap PO QPM 06/06/23 06/06/23 Unknown History (120 mg-180 mg) capsule (Fish Oil) omeprazole 40 mg capsule,delayed 40 mg PO QAM 06/06/23 06/06/23 Unknown History release sertraline 25 mg tablet 50 mg PO QPM 06/06/23 06/06/23 Unknown History zolpidem 10 mg tablet 10 mg PO BEDTIME PRN Insomnia 06/06/23 06/06/23 Unknown History Exam Airway Mallampati Class: III TM Dist: >3cm Neck ROM: Full Assessment and Plan Assessment Anesthesia Assessment: Anesthesia Plan Discussed Final Anesthetic Review NPO: Yes ASA Class: III Final Preanesthetic Review: No Changes in Pt Med Stat, Meds/Allgs Chart Reviewed, Consent Obtained/Reviewed and Anes Risks/Benef Reviewed Patient Risk: Intermediate Procedure Risk: Intermediate Anesthetic Plan Anesthetic Plan: GA Disposition: Standard PACU
[2023-06-19] VITALS (21 sets, daily range): BP systolic 107–134; BP diastolic 56–75; PULSE 62–81; RESP 11–18; TEMP 36–36.6; O2SAT 93–100
--- NOTE | ~2023-06-19 | FL_ITS ---
EXAMINATION: XR FLUOROSCOPY WITH IMAGES CLINICAL INFORMATION: L3-L4 OLIF. COMPARISON: Lumbar spine radiographs dated 02/13/2023; MRI lumbar spine dated 01/08/2023.. TECHNIQUE: Fluoroscopy Supervised By: Dr. Kendall Mahajan. IMAGES 1-3: Fluoroscopy Time: 1 minute and 15.4 seconds. Cumulative Dose: 32.355 mGy. DAP: 10.548 Gycm2. IMAGE 4: Fluoroscopy Time: 0.3 minutes. Cumulative Dose: 24.4 mGy. DAP: 6.66 Gycm2. 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 The submitted AP image shows interim application of posterior fixator rods, fixator screws and a disc spacer at L3-L4. Hardware previously noted at L4-S1 is removed. FL/FL guidance in OR IMPRESSION: Intraoperative fluoroscopic surgery is provided during L3-L4 fusion. Transitional lumbar anatomy is noted. Please see the patient's Operative Report for full procedural details.
--- OUTSIDE RECORDS SUMMARY | 2023-06-19 06:10 | XMS_ITS | Patient Health Record ---
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 Orally two tablets twice a day for one day for 1 day 06/01/2021 Active levETIRAcetam Active MiraLax (colon prep) 17 GM/SCOOP 1 238 Gm bottle mixed with Gatorade or Crystal Light Orally begin at 5:00 p.m. the day before the procedure for 1 day 06/01/2021 Active oxyCODONE-Acetaminophen Active Citalopram Hydrobromide 20 MG Oral for 30 Active Amitriptyline HCl Ac tive Estazolam 2 MG Oral for 30 Act peggy Carisoprodol Active Butalbital-APAP Acti ve metFORMIN HCl 500 MG 1 tablet with a andie l Orally Once a day for 30 day(s) Active Zolpidem Tartrate Ac tive ProAir HFA Active Lisinopril-hydroCHLOROthiazi de 10-12.5 MG Oral for 90 Active Atorvastatin Calcium Active Pantoprazole Sodium 40 MG Oral for 90 Active Famotidine 20 mg 1 BID Act peggy Ovddxwnpcy-RFER-Dejdxjjy 50-325-40 MG Oral for 30 Active Lisinopril Active Gabapentin 100 MG Oral for 30 Active Methocarbamol 500 MG 1.5 tablets Orally every 4 hrs for 30 day(s) Active Lipitor 40 MG 1 tablet Orally Once a day for 30 day(s) Active Fish Oil Active Cerovite Senior Acti ve IMMUNIZATIONS Vaccine Route Administration Date Status Comme nts Influenza Unknown 01/11/2021 Administered SOCIAL HISTORY Tobacco Use: Social History Observation Description Date Details (start date - stop date) Never Smoker NA - NA Sex Assigned At : Social History Observation Description Sex Assigned At Unknown Tobacco Use/Smoking Question Answer Notes Patient is a nonsmoker PROBLEMS Problem Type ICD Code Onset Dates Problem Status W/U Status Risk SNOMED Code Notes Problem Encounter for screening for malignant neoplasm of colon (Z12.11) Active confirmed 915880878 Problem Gastroesophageal reflux disease without esophagitis (K21.9) Active confirmed 933528761 Problem Preprocedural examination (Z01.818) Active confirmed 484047894703103 Problem Aspirin long-term use (Z79.82) Active confirmed [id number] Problem Diverticulosis of colon (K57.30) Active confirmed Diverticulosi s of colon (496230275) PLAN OF TREATMENT Future Test Test Name Order Date UPPER GI ENDOSCOPY 05/22/2012 COLONOSCOPY 06/01/2021 Insurance Providers Payer Name Payer Address Payer Phone Subscriber Number Group Number Insured Name Patient Relationship to Insured Coverage Start Date Coverage End Date MEDICARE OF [place] [address] [place] [address] [id number] EMI MAYERS Self - patient is the insured FOR[facility]LY [facility] [employer] [address] [place] [address] [id number] EMI MAYERS Self - patient is the insured MEDICAL (GENERAL) HISTORY Medical History History ICD Code Colonoscopy in 01/2008-neg. for polyps; mild sigmoid diverticulosis and internal hemorrhoids GERD-normal EGD 2012 except small HH HTN Hyperlipidemia Seizure disorder Asthma Denies [place],CVA,renal disease Back pain NIDDM Surgical History Surgery Date(Month/Year) Shoulder surgery Back surgery-lower back Elbow surgery Foot surgery MELITA
[2023-06-19] MEDS: methocarbamoL 750 MG TABLET PO (06:32)
[2023-06-19 06:34] LABS: Glucose, Whole Blood 138 mg/dL (60-115)
[2023-06-19] MEDS: Lactated Ringers 1,000 ML 100 ML IVCONT (06:42)
--- NOTE | 2023-06-19 06:48 | PHA.MEDREC ---
Pharmacy Consult ? Medication Reconciliation Pharmacy has REVIEWED the medication reconciliation done by RN.
--- NOTE | 2023-06-19 06:58 | P.HPSUR_ITS ---
Pre-Procedural Eval Section A - 24 Hr Update-Section A only Date of Service: 06/19/23 The patient is an INPATIENT: No Changes since office visit: No Cold of Flu in the past 2 weeks, No New Medical Problems, No Changes in Medication and No Patient answered all questions The patient has been examined within 24 hours of the surgical procedure. The History & Physical has been completed within 30 days and I have reviewed it.: No Section B - Complete if H&P > 30 days Chief Complaint: L3-4 OLIF Allergies: Allergies Allergy/AdvReac Type Severity Reaction Status Date / Time topiramate [Topamax] Allergy Intermediate ? Verified 06/06/23 12:00 seizure-patient unsure Review of Systems Sugical H&P ROS: Negative: Constitution, Cardiovascular, Respiratory, Neurological, Psychiatric, Hem-Onc, Allergic/Immunologic, Gastrointestinal, Genitourinary, Musculoskeletal, Integumentary, Endocrine and Eyes/Ears /Nose/Throat Exam Surgical H&P Exam: Not Evaluated: HEENT, Not Evaluated: Heart, Not Evaluated: Lungs, Not Evaluated: Extremities, Not Evaluated: Abdomen, Not Evaluated: Skin and Not Evaluated: Neurological Plan Diagnosis/Plan: Unchanged L3-4 OLIF with revision posterior instrumentation Time Spent With Patient Time: Total time managing care of this patient today __5__ minutes.
--- NOTE | 2023-06-19 10:18 | P.OP_ITS ---
Operative Note Operative Note Date of Service: 06/19/23 Narrative: Preop Diagnosis: 1.) Adjacent degenerative disc disease L3-4; status post previous L4-S1 fusion in another institution 2.) Back pain Procedure: 1) L3-4 discectomy, arthrodesis and implantation cage through an anterolateral, retroperitoneal approach 2) removal L4-S1 posterior instrumentation 3) posterolateral fusion L3-4 3) insertion L3-4 posterior instrumentation allograft 4) injection of 10 cc of Exparel at the L4 transverse process bilaterally for a muscular erector spinae block and additional Exparel in paravertebral tissue for postop management Consent Informed Consent was obtained for this operation. I have explained the nature, purpose and benefits of the operation. I have discussed the risks and benefit of the operation including possible complications or adverse events with patient/family. Alternative(s) were discussed with the patient with their relative benefits and risks as well as the consequences of not accepting the operation were included in obtaining consent. Surgeon: TAY CAIN MD, PHD Procedure Assisted By: Jorge gomez Description of Procedure This patient is suffering from back pain and radiculopathy. Imaging reviews adjacent degenerative disc disease with a lumbar spondylolisthesis L3-4. The patient is status post previous L4-S1 fusion. The patient was offered an oblique lumbar interbody fusion L3-4, removal posterior L4-S1 instrumentation and reinsertion L3-4 posterior instrumentation.. The procedure complications were explained. The patient was consented. The patient was brought to the operating room and endotracheally intubated. The patient was turned in a lateral position with the left side up. Prep and drape was done followed by timeout. A small incision was made in the left lower abdominal quadrant. The muscle fascia was opened after which the 3 muscle layer was split to enter the retroperitoneal space. Dilators were docked in the anterior one third of the L3-4 disc space followed by a retractor. The retractor was opened. The L3-4 disc space was exposed. An annulotomy was done after which an elevator Jovel was used to release the disc material from its endplates and to perforate the contralateral side. A partial discectomy was done. An 8 mm height trial implant was inserted. The discectomy was completed. The endplates were prepared. An 10 x 45 mm with 6 degree lordosis 4 web cage filled with allograft was inserted into the disc space under fluoroscopic guidance. This resulted in correction of the spondylolisthesis and indirect decompression of the nerve structures. The retractor was removed. Hemostasis was done. The incision was closed in 2 layers. Steri-Strips used to approximate incision. An OpSite with Tegaderm was used to cover the incision. This marked first part of the procedure. The patient was turned prone on the Alli spine table. 2C arms were installed for fluoroscopy. Prep and drape was done followed by a second timeout. 2 paramedian incisions were made lateral from the previous placed L4-S1 instrumen tation. The posterior hardware was exposed bilaterally. The locking caps and rods were removed. Then 2 screws on the right side at L4 and S1 were taken out and 3 screws on the left side from L4-S1. A new 7.5 x 40 mm screw was inserted into the bilateral L4 pedicles. The following steps were taken for the bilateral L3 screw placement. A pediguard tap was used to create a transpedicular trajecto ry into the vertebral body. A K wire was placed. A specially designed instrument was advanced over the K wire to decorticate the posterolateral gutter in preparation for the posterolateral fusion. A pedicle screw was advanced over the K wire and the K wire was removed. A total of 2 in L3 screws were placed with a diameter of 6.5 x 40 mm. Pedicle screws were connected with 45 mm chanel bilaterally and locked down with locking caps. The extension towers were removed. The posterolateral gutter was filled with allograft to complete the posterolateral L3-4 fusion Hemostasis was done and the incision was closed in 2 layers. Steri-Strips were used to approximate the incision. An OpSite were taken and was used to cover the incision. All sponge and needle counts were correct. Patient was extubated and transferred in stable is to recovery room. Anesthesia: General Estimated Blood Loss (ml): 40 mL Duration of Surgery: 2.5 hours Complications: None Postoperative Plan: Admit to inpatient for observation
[2023-06-19] MEDS: fentaNYL citrate/PF 100 MCG/2 ML VIAL 50 MCG IVPUSH ×2 (10:58→11:17)
--- NOTE | 2023-06-19 11:02 | PHA.MEDREC ---
Pharmacy Consult ? Medication Reconciliation RN has completed the medication reconciliation, pharmacy reviewed.
[2023-06-19] MEDS: Omeprazole 40 MG CAPSULE.DR PO (13:02)
[2023-06-19] MEDS: Cholecalciferol (Vitamin D3) 25 MCG TABLET PO (13:02)
[2023-06-19] MEDS: lisinopriL 10 MG TABLET PO (13:03)
[2023-06-19] MEDS: 0.9 % Sodium Chloride 1,000 ML 75 ML IVCONT (13:03)
[2023-06-19] MEDS: hydroCHLOROthiazide 12.5 MG TABLET PO (13:03)
[2023-06-19] MEDS: Multivitamin TABLET 1 TAB PO (13:03)
[2023-06-19 13:05] LABS: Glucose, Whole Blood 228 mg/dL (60-115)
[2023-06-19] MEDS: ceFAZolin Sodium/Dextrose,Iso 2 GM/50 ML PIGGYBACK IV ×2 (14:05→20:00)
[2023-06-19] MEDS: oxyCODONE HCl Immed Release 5 MG TABLET 10 MG PO (15:47)
[2023-06-19 16:30] LABS: Glucose, Whole Blood 231 mg/dL (60-115)
[2023-06-19] MEDS: Ketorolac Tromethamine 15 MG/ML VIAL IVPUSH ×2 (16:55→22:41)
[2023-06-19] MEDS: Acetaminophen 1,000 MG/100 ML PIGGYBACK 400 MG IV ×2 (16:55→22:42)
[2023-06-19] MEDS: Insulin Lispro 100 UNIT/ML 3 ML VIAL SUBCUT ×2 (16:56→20:34)
[2023-06-19] MEDS: HYDROmorphone HCl 1 MG/ML SYRINGE IVPUSH (19:28)
[2023-06-19] MEDS: Docusate Sodium 100 MG CAPSULE PO (20:01)
[2023-06-19] MEDS: Atorvastatin Calcium 40 MG TABLET PO (20:01)
[2023-06-19] MEDS: Sertraline HCL 50 MG TABLET PO (20:01)
[2023-06-19] MEDS: Gabapentin 100 MG CAPSULE 200 MG PO (20:01)
[2023-06-19] MEDS: levETIRAcetam 250 MG TABLET PO (20:01)
[2023-06-19] MEDS: metFORMIN HCl 500 MG TABLET PO (20:01)
[2023-06-19] MEDS: levETIRAcetam 1,000 MG TABLET 1000 MG PO (20:01)
[2023-06-19 20:29] LABS: Glucose, Whole Blood 157 mg/dL (60-115)
[2023-06-20] MEDS: ceFAZolin Sodium/Dextrose,Iso 2 GM/50 ML PIGGYBACK IV (01:49)
[2023-06-20 03:07] VITALS: BP 102/53; PULSE 55; RESP 16; TEMP 36.7; O2SAT 96
[2023-06-20] MEDS: 0.9 % Sodium Chloride 1,000 ML 75 ML IVCONT (03:21)
[2023-06-20] MEDS: Omeprazole 40 MG CAPSULE.DR PO (05:18)
[2023-06-20] MEDS: Ketorolac Tromethamine 15 MG/ML VIAL IVPUSH (05:18)
[2023-06-20] MEDS: Acetaminophen 1,000 MG/100 ML PIGGYBACK 400 MG IV (05:19)
--- NOTE | 2023-06-20 07:00 | HO.NEUROPN_ITS ---
Neurosurgery Operative Note Date of Service: 06/20/23 Narrative: POD: 1 Procedure: L3-4 OLIF Patient reports she is up oob walking around is otherwise doing well. She feels her symptoms are much better than pre-operatively. She still reports mild pain in her low back, with good relief with pain medication. She had an episode of increased pain last night, and states it was well controlled with Dilaudid. She is voiding well, has been up to the bathroom, and is tolerating diet. Afebrile, vital signs stable. No new neurological deficits. Full strength in bilateral lower extremities. Back dressings have some staining without signs of hematoma. No active sanguineous drainage. Area is dry. Plan: Patient meets criteria to be medically discharged home. She was seen at bedside with Dr. Mahajan. I have sent in a prescription for narcotic pain control to her pharmacy on record. She understands she should be taking 1000 mg of Tylenol 3 times daily alongside her narcotic pain medication. Linden Mahajan MD,PhD [facility]
[2023-06-20 07:35] LABS: Glucose, Whole Blood 136 mg/dL (60-115)
--- NOTE | 2023-06-20 07:35 | P.DS_ITS ---
DS: Providers Provider Date of Service: 06/20/23 Date of admission: 06/19/23 06:07 Primary care physician: Angel Melgoza PA-C DS: Summary Time Attestation Discharge Coordination Time (in mins): 10 Quality: Safe Use of Opioids Does Pt have an Active Cancer Diagnosis on the Problem List?: No Quality: Stroke Does the patient have a stroke diagnosis?: No Physical Exam Vital Signs: Vital Signs: Last Vital Signs Temp 98.1 F 06/20/23 03:07 Pulse 55 06/20/23 03:07 Resp 16 06/20/23 03:07 BP 102/53 L 06/20/23 03:07 Pulse Ox 96 06/20/23 03:07 O2 Del Method Room Air 06/20/23 03:07 O2 Flow Rate 2 06/19/23 12:20 BMI result Body Mass Index 28.9 DS: Data Data Completed and Pending Labs on day of discharge: Laboratory Results - last 24 hr 06/19/23 06/19/23 06/19/23 06:53 12:51 16:25 POC Glucose 228 H 231 H Blood Type O Positive Antibody Screen NEGATIVE 06/19/23 20:25 POC Glucose 157 H Blood Type Antibody Screen Discharge Plan Discharge Anticipated Discharge Date/Time: 06/20/23 07:35 Patient Disposition: Home, Self-Care Discharge Diagnosis: s/p L3-4 Lumbar fusion Referrals: Angel Melgoza PA-C [Primary Care Provider] - 1 Week Discharge Medications: New hydromorphone 4 mg tablet 2 mg PO Q6H PRN (Reason: severe pain (scale score 7-10)) Qty: 30 0RF Continued albuterol sulfate 90 mcg/actuation HFA aerosol inhaler 2 puff inhalation Q6H PRN (Reason: shortness of breath or wheezing) Qty: 6.7 3RF hajhnqnlqh-ebqtvkxgoujyv-rhrt 50-325-40 mg tablet 1 tab PO BID PRN (Reason: pain) Qty: 30 0RF gabapentin 100 mg capsule 200 mg PO BID Qty: 60 0RF zolpidem 10 mg tablet 10 mg PO BEDTIME PRN (Reason: Insomnia) atorvastatin [Lipitor] 40 mg tablet 40 mg PO BEDTIME metformin 500 mg tablet 500 mg PO BEDTIME omeprazole 40 mg capsule,delayed release(DR/EC) 40 mg PO QAM sertraline 25 mg tablet 50 mg PO QPM Rx Instructions: takes at 1200 noon lisinopril-hydrochlorothiazide 10-12.5 mg tablet 1 tab PO QAM cholecalciferol (vitamin D3) 25 mcg (1,000 unit) capsule 25 mcg PO QAM omega 1-qvk-rya-fish oil [Fish Oil] 1,000 mg (120 mg-180 mg) Capsule 1 cap PO QPM levetiracetam [Keppra] 250 mg tablet 250 mg PO BID Qty: 60 1RF levetiracetam [Keppra] 1,000 mg tablet 1,000 mg PO BID Qty: 60 1RF vitamin B complex [B Complex-Vitamin B12] Tablet 1 tab PO QAM Held aspirin 81 mg Tablet,Delayed Release (Dr/Ec) 81 mg PO QAM Hold Instructions: Resume on 06/23/23. Discharge Orders: Discharge Order (Routine); Ordered 06/20/23 Ordered By: Linden Lazcano Diet: Advance to usual diet Activity on Discharge: As tolerated Stand Alone Forms: Patient Portal Discharge page Print Language: Turkmen Activity Restrictions/Additional Instructions: After your spinal surgery we ask you to observe the following restrictions/guidelines: Activity: With lumbar fusion surgery it is normal to have days in the first couple of weeks where you have increased leg pain. This usually lasts 1-2 days and self resolves with the continuation of medication. Attempt to stay mobile and continue activity as tolerated. It is normal to feel some discomfort as you increase your activity, but that will improve with time. We ask you avoid heavy lifting or activities that cause pain. As a general rule, 8lbs is a safe limit for lifting right after surgery. Walk as much as you feel comfortable but not to exhaustion. You will feel extra tired the first few days after surgery. Stay well hydrated. It is OK to walk up and down stairs You may return to driving when you are off narcotics (such as vicodin, oxycodone, dilaudid, etc), and you are back to normal functional capacity. If you have any concerns please check with office before driving. Return to work is specific to each patient and each surgery, so please speak with your doctor/PA at first follow up. Please bring paperwork such as FMLA at that time if you need it filled out. Medications: It is recommended that you take Tylenol 1,000mg 3 timesd daily for the first month post-opertatively. We will give you a short supply of narcotics after surgery (usually one weeks worth). ??Please use this for breakthrough pain that is refractory to the T ylenol. If you need more please call the office but do not use more than prescribed. You will need to give our office 48 hours notice if you need narcotics refilled and we do not fill narcotics on weekends or evenings. If you are on a narcotic, it is a good idea to take a stool softener such as colace or senna to avoid constipation If you take blood thinner such as aspirin, Plavix, Coumadin, Effient, Eliquis etc for conditions such as Afib, DVT, Pulmonary embolus, coronary disease, stents etc please speak with your surgeon about specific details as to when you can resume these medications. You can resume NSAIDs on post op day 1 (eg: Motrin, Naproxen, etc). Follow up: Please call the office, , after surgery to arrange a 3 week follow up for wound check. Wound Care: You may remove your dressing on the first day after surgery. ?You may ?leave open to air. Please do not remove the steri strips underneath. they will fall off on their own in one week. IT IS NORMAL FOR THE WOUND TO OOZE OR BE BLOODY FOR A FEW DAYS AFTER SURGERY. ?IF THIS HAPPENS JUST PLACE NEW DRESSING OVER IT TO AVOID STAINING CLOTHES. You may shower on post op day # 1 We ask that you do not let the water soak the wound. If it does get wet, just towel dry lightly. Please do not scrub your incision or place any type of chemical/ointment on the wound. No tub baths, pools or jacuzzis for one month. If you have any leaking or redness from your wound, or fevers, please call office Care Plan Goals: Return to normal activity as tolerated Health Concerns: None Plan of Treatment: Follow-up in clinic in 2-3 weeks Assessment: POD: 1 Procedure: L3-4 OLIF Patient reports she is up oob walking around is otherwise doing well. She feels her symptoms are much better than pre-operatively. She still reports mild pain in her low back, with good relief with pain medication. She had an episode of increased pain last night, and states it was well controlled with Dilaudid. She is voiding well, has been up to the bathroom, and is tolerating diet. Afebrile, vital signs stable. No new neurological deficits. Full strength in bilateral lower extremities. Back dressings have some staining without signs of hematoma. No active sanguineous drainage. Area is dry. Plan: Patient meets criteria to be medically discharged home. She was seen at bedside with Dr. Mahajan. I have sent in a prescription for narcotic pain control to her pharmacy on record. She understands she should be taking 1000 mg of Tylenol 3 times daily alongside her narcotic pain medication. Linden Mahajan MD,PhD [facility]
[2023-06-20 07:55] VITALS: BP 102/53; PULSE 55; O2SAT 96
[2023-06-20 08:01] VITALS: BP 102/53
[2023-06-20] MEDS: Docusate Sodium 100 MG CAPSULE PO (08:01)
[2023-06-20] MEDS: lisinopriL 10 MG TABLET PO (08:01)
[2023-06-20] MEDS: hydroCHLOROthiazide 12.5 MG TABLET PO (08:01)
[2023-06-20] MEDS: Multivitamin TABLET 1 TAB PO (08:01)
[2023-06-20] MEDS: levETIRAcetam 250 MG TABLET PO (08:01)
[2023-06-20] MEDS: levETIRAcetam 1,000 MG TABLET 1000 MG PO (08:01)
[2023-06-20] MEDS: Cholecalciferol (Vitamin D3) 25 MCG TABLET PO (08:01)
[2023-06-20] MEDS: Gabapentin 100 MG CAPSULE 200 MG PO (08:07)
--- NOTE | 2023-06-20 08:28 | MHC.CM.PN ---
IMM 06/20/23 Patient s/p HANNAH L-3-4. She lives with her spouse and other family members. She is independent with all functional mobility. She is discharged today to home self care. Her spouse is providing transportation home.
[2023-06-20 09:04] LABS: Creatinine Clr Calc Pharmacy 65.9; Estimated Glomerular Filt Rate > 60
== END 2023-06-20 09:25 | disposition home or self-care (01) | DRG 460 ==
LOC: HO.SSSA 06:08 → HO.S3 12:24
PROVIDERS: Admitting Provider Neurological Surgery; PCP Physician Assistant; Visit Provider Neurological Surgery
PROC: 0SG00A0 Fusion of Lumbar Vertebral Joint with Interbody Fusion Device, Anterior Approach, Anterior Column, Open Approach (ICD-10-PCS; principal; 2023-06-19 07:30)
DX: M51.36 Other intervertebral disc degeneration, lumbar region (principal); M48.062 Spinal stenosis, lumbar region with neurogenic claudication; K21.9 Gastro-esophageal reflux disease without esophagitis; Z87.891 Personal history of nicotine dependence; Z79.82 Long term (current) use of aspirin; Z79.84 Long term (current) use of oral hypoglycemic drugs; Z79.899 Other long term (current) drug therapy
CPT/HCPCS: 36415; 82565; 82947; 86850; 86900; 86901; 97116; 97161; C1713; C1889; C9290; J0131; J0665; J0690; J1100; J1170; J1596; J1885; J2250; J2371; J2405; J2704; J3010; L8699

== ENCOUNTER → 2023-06-19 06:07 | Outpatient (BNV) | payer MEDICARE, OTHER, SELFPAY | PROVIDERS: Admitting Provider Neurological Surgery; PCP Physician Assistant; Visit Provider Neurological Surgery | DX: Z48.89 Encounter for other specified surgical aftercare (principal) | CPT/HCPCS: 20930; 22558; 22612; 22840; 22853; 99024; 99499 ==

== ENCOUNTER 2023-07-12 09:09 | Outpatient (AMB) | payer MEDICARE, OTHER, SELFPAY ==
--- NOTE | 2023-07-12 09:21 | A.SPINEOV_ITS ---
Intake Visit Reasons: 1st post op Intake Note: Ms. Langston is here today for 1st post-op appointment. Reconciliation Manager Required: No Allergies topiramate [Topamax] Allergy (Intermediate, Verified 07/12/23 09:22) ? seizure-patient unsure Assessment & Plan Assessment & Plan (1) S/P lumbar fusion: Code(s): Z98.1 - Arthrodesis status Category: Surgical Plan Procedure: L3-4 OLIF & removal previous construct from L4-S1 Sydnee comes in today for her 1st postoperative visit. She reports she is satisfied with the surgery and feels better than she did pre-operatively. She reports having days where she has 0 back pain and does not take any pain medication, but also has days where she feels the pain is quite intense. On the days where she has the more intense pain she is still utilizing her narcotic pain medication. We discussed how this is likely waxing/waning postoperative pain as a result of inflammation. She states she is up walking around and completing the majority of her ADLs. No new neurological deficits. Patient is able to ambulate well, rises from a seated position without difficulty. Posterior and ateolateral incision sites are closed, well healing, with no signs of drainage. I will refill her narcotic pain medication for the last time. We will follow-up with the patient in 6 weeks for their 2nd postoperative visit. At that time we will get x-rays to review with the patient. Linden Mahajan MD,PhD [facility] Coding Level of Care Code Global (76809) Diagnoses S/P lumbar fusion Z98.1
== END 2023-07-12 09:41 | disposition home or self-care (01) ==
PROVIDERS: PCP Physician Assistant; Visit Provider Physician Assistant
DX: Z98.1 Arthrodesis status (principal)
CPT/HCPCS: 99024

== ENCOUNTER → 2023-07-12 09:09 | Outpatient (BNVA) | payer MEDICARE, OTHER, SELFPAY | PROVIDERS: PCP Physician Assistant; Visit Provider Physician Assistant | DX: Z48.89 Encounter for other specified surgical aftercare (principal); Z98.1 Arthrodesis status | CPT/HCPCS: 99212 ==

== ENCOUNTER 2023-07-23 12:04 | Outpatient (AMB) | payer MEDICARE, OTHER, SELFPAY ==
[2023-07-23 12:01] VITALS: BP 118/62; BMI 28.6
--- NOTE | 2023-07-23 12:01 | A.OFFVIS_ITS ---
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 seizure-patient unsure HPI Comments Details: Presenting referred from Kaylee Bassett CNM regarding lucia rectal lesion that appeared around 1-2 years ago has been growing in size, no itching no pain or discharge PFSH Medical History Back pain Lumbar degenerative disc disease Panic attacks Anxiety Depression GERD (gastroesophageal reflux disease) Migraines HTN (hypertension) Insomnia Asthma High cholesterol Seizures Diabetes Surgical History Hx of foot surgery History of esophagogastroduodenoscopy (EGD) H/O colonoscopy H/O eye surgery History of breast biopsy History of back surgery H/O tubal ligation H/O: hysterectomy Family History Mother Diabetes Sister Colon cancer Brother Cirrhosis of liver Social History Household Members: Spouse Housing: House Are you a primary critical care unit manager to a significant other at home: No Do you presently have visiting nurse or other home services: No Alcohol intake: current Alcohol intake frequency: holidays/special occasions only Comment: pt states arm is sore--had previous sx on arm Patient Tobacco Use Status: Former Tobacco user Tobacco use type: Cigarette Years Smoked: 20 e-Cigarette/Vaping Use: Never Used Second Hand Smoke Exposure: Yes Substance Use Type: Marijuana service: No Current occupational status: retired Cognitive needs: Yes (cane/ walker) Hearing needs: No Vision needs: Yes (glasses) Review of Systems Const All systems reviewed & are unremarkable except as noted in HPI and below Card Reports as per HPI and Reports no additional complaints Resp Reports as per HPI and Reports no additional complaints GI Reports as per HPI and Reports no additional complaints Reports as per HPI Physical Exam Vital Signs: Last Vital Signs BP 118/62 07/23/23 12:01 BMI result Body Mass Index 28.6 Const General: cooperative, healthy appearing and comfortable Other: 1.5 cm right perirectal lesion General: Yes bladder normal to palpation External Female Exam: No lesion Speculum Exam - Vagina: normal appearance of the vagina, normal vaginal discharge and not erythematous Speculum Exam - Cervix: Cervix absent Bimanual exam- vagina & uterus: bladder normal to palpation and uterus absent Bimanual Exam- Adnexa, other: Other (No masses detected) Assessment & Plan Assessment & Plan (1) Lesion of female perineum: Comment: 1.5 cm right perirectal area Code(s): N90.9 - Noninflammatory disorder of vulva and perineum, unspecified Category: Medical Plan: Discussed with the patient the finding on physical exam showing 1.5 cm right perirectal lesion, recommended biopsy to rule out FRANNY , and treat accordingly. The patient would like to schedule an appointment in 1-2 weeks. Instructions given the patient to schedule an appointment for a perirectal lesion 1-2 weeks. Will check the results and treat accordingly. All questions answered, the patient verbalized understanding. Coding Level of Care Code Est Pt Level 3 (02736) Diagnoses Lesion of female perineum N90.9
== END 2023-07-23 12:50 | disposition home or self-care (01) ==
LOC: HO.HWS 12:04
PROVIDERS: PCP Internal Medicine; Visit Provider Obstetrics & Gynecology
DX: N90.9 Noninflammatory disorder of vulva and perineum, unspecified (principal)
CPT/HCPCS: 99213

== ENCOUNTER → 2023-07-23 12:04 | Outpatient (BNVA) | payer MEDICARE, OTHER, SELFPAY | PROVIDERS: PCP Internal Medicine; Visit Provider Obstetrics & Gynecology | DX: N90.9 Noninflammatory disorder of vulva and perineum, unspecified (principal) | CPT/HCPCS: 99212 ==

== ENCOUNTER 2023-08-13 09:01 | Outpatient (AMB) | payer MEDICARE, OTHER, SELFPAY ==
--- NOTE | 2023-08-13 09:37 | MHC.OFFVIS ---
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 seizure-patient unsure HPI Comments Details: Presenting for right perirectal lesion biopsy PFSH Medical History Back pain Lumbar degenerative disc disease Panic attacks Anxiety Depression GERD (gastroesophageal reflux disease) Migraines HTN (hypertension) Insomnia Asthma High cholesterol Seizures Diabetes Surgical History Hx of foot surgery History of esophagogastroduodenoscopy (EGD) H/O colonoscopy H/O eye surgery History of breast biopsy History of back surgery H/O tubal ligation H/O: hysterectomy Family History Mother Diabetes Sister Colon cancer Brother Cirrhosis of liver Social History Household Members: Spouse Housing: House Are you a primary child care center assistant director to a significant other at home: No Do you presently have visiting nurse or other home services: No Alcohol intake: current Alcohol intake frequency: holidays/special occasions only Comment: pt states arm is sore--had previous sx on arm Patient Tobacco Use Status: Former Tobacco user Tobacco use type: Cigarette Years Smoked: 20 e-Cigarette/Vaping Use: Never Used Second Hand Smoke Exposure: Yes Substance Use Type: Marijuana service: No Current occupational status: retired Cognitive needs: Yes (cane/ walker) Hearing needs: No Vision needs: Yes (glasses) Physical Exam Vital Signs: Last Vital Signs BP 120/74 08/13/23 09:44 BMI result Body Mass Index 28.2 Office Procedures IRON POURER Biopsy Before the procedure was started d/w patient the procedure, alternatives ( do nothing, medical rx), & all the risks associated with the procedure ( bleeding , infection, vulvar scarring, painful intercourse, injury to vessels, possible need for transfusion with all its risks) then patient signed the consent. Preop dx: Right perirectal lesion Op: Right perirectal lesion biopsy Post op: Same Anesthesia: Lidocaine 1% 3cc used Procedure: Using betadine the area was scrubbed and draped in the usual manner. 3 cc of lidocaine was used for anesthesia at the Right perirectal lesion area ; using scissors and pickup the left vulvar a small sample of the right perirectal lesion was excised. Pressure was used for hemostasis. The patient tolerated the procedure well. Discharge Instructions: The patient was instructed to schedule an appointment in 2 weeks for follow-up and to call if temp>100.4, area of the biopsy redness or pain, nausea/vomiting. This note was generated with a voice recognition program. Some errors may have been overlooked during the review of this note. Sometimes these errors may affect the content or meaning of a given sentence. 12289-[place] of Vulva/Perineum Procedure code (CPT) selection complete Assessment & Plan Assessment & Plan (1) Lesion of female perineum: Comment: 1.5 cm right perirectal area Code(s): N90.9 - Noninflammatory disorder of vulva and perineum, unspecified Category: Medical Plan: Right perirectal lesion biopsy done, see procedure note Orders: Orders AMB IRON POURER Biopsy Today N90.9 - Noninflammatory disorder of vulva and perineum, unspecified Coding Level of Care Code Procedure Only Diagnoses Lesion of female perineum N90.9 CPT Codes IRON POURER Biopsy - CPT: 74363-[place] of Vulva/Perineum ([id number])
[2023-08-13 09:44] VITALS: BP 120/74; BMI 28.2
== END 2023-08-13 10:04 | disposition home or self-care (01) ==
PROVIDERS: PCP Internal Medicine; Visit Provider Obstetrics & Gynecology
DX: N90.9 Noninflammatory disorder of vulva and perineum, unspecified (principal)
CPT/HCPCS: 56605

== ENCOUNTER 2023-08-13 09:01 | Outpatient (REF) | payer MEDICARE, OTHER, SELFPAY | END 2023-08-13 09:02 | disposition home or self-care (01) | LOC: HO.LNP 09:01 | PROVIDERS: PCP Internal Medicine; Visit Provider Obstetrics & Gynecology | DX: N90.9 Noninflammatory disorder of vulva and perineum, unspecified (principal) | CPT/HCPCS: 56605; 88305; 88342; 88360 ==

== ENCOUNTER 2023-08-22 08:12 | Outpatient (AMB) | payer MEDICARE, OTHER, SELFPAY ==
--- NOTE | 2023-08-22 08:15 | MHC.OFFVIS ---
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 seizure-patient unsure Post menopausal: Yes HPI Comments Details: Presenting for follow-up post biopsy of right perirectal lesion, doing well with no complaints. 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 PFSH Medical History Back pain Lumbar degenerative disc disease Panic attacks Anxiety Depression GERD (gastroesophageal reflux disease) Migraines HTN (hypertension) Insomnia Asthma High cholesterol Seizures Diabetes Surgical History Hx of foot surgery History of esophagogastroduodenoscopy (EGD) H/O colonoscopy H/O eye surgery History of breast biopsy History of back surgery H/O tubal ligation H/O: hysterectomy Family History Mother Diabetes Sister Colon cancer Brother Cirrhosis of liver Social History Household Members: Spouse Housing: House Are you a primary home care consultant to a significant other at home: No Do you presently have visiting nurse or other home services: No Alcohol intake: current Alcohol intake frequency: holidays/special occasions only Comment: pt states arm is sore--had previous sx on arm Patient Tobacco Use Status: Former Tobacco user Tobacco use type: Cigarette Years Smoked: 20 e-Cigarette/Vaping Use: Never Used Second Hand Smoke Exposure: Yes Substance Use Type: Marijuana service: No Current occupational status: retired Cognitive needs: Yes (cane/ walker) Hearing needs: No Vision needs: Yes (glasses) Review of Systems Const All systems reviewed & are unremarkable except as noted in HPI and below Reports as per HPI and Reports no additional complaints GI Reports no additional complaints Reports no additional complaints Physical Exam Vital Signs: BMI result Body Mass Index 28.2 Assessment & Plan Assessment & Plan (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 Appointment scheduled with Dr. 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
[2023-08-22 08:18] VITALS: BMI 28.2
== END 2023-08-22 08:50 | disposition home or self-care (01) ==
PROVIDERS: PCP Internal Medicine; Visit Provider Obstetrics & Gynecology
DX: D01.3 Carcinoma in situ of anus and anal canal (principal)
CPT/HCPCS: 99213

== ENCOUNTER → 2023-08-22 08:12 | Outpatient (BNVA) | payer MEDICARE, OTHER, SELFPAY | PROVIDERS: PCP Internal Medicine; Visit Provider Obstetrics & Gynecology | DX: D01.3 Carcinoma in situ of anus and anal canal (principal); Z71.2 Person consulting for explanation of examination or test findings | CPT/HCPCS: 99212 ==

== ENCOUNTER 2023-08-27 10:29 | Outpatient (AMB) | payer MEDICARE, OTHER, SELFPAY ==
[2023-08-27 10:30] VITALS: BP 129/72; PULSE 74; BMI 27.6
--- NOTE | 2023-08-27 10:30 | A.OFFVIS_ITS ---
Vital Signs 08/27/23 10:30 Height 5 ft 2 in Weight 151 lb BMI 27.6 BP 129/72 Blood Pressure Location Rt brachial Position Sitting Pulse 74 Intake Visit Reasons: Anal Carcinoma Intake Note: This patient was referred by for an assessment for AIN grade III. Patient c/o; reports no rectal bleeding, reports no rectal pain, reports daily bowel movements. 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 seizure-patient unsure Medication List - Last Reconciled 08/27/23 by Narinder Larson MD albuterol sulfate 90 mcg/actuation 2 puffs inhalation Q6H PRN aspirin 81 mg PO QAM atorvastatin (Lipitor) 40 mg PO BEDTIME enjzsqcojs-aoiygaqnfaaeu-orae 50-325-40 mg 1 tab PO BID PRN cholecalciferol (vitamin D3) 25 mcg PO QAM gabapentin 200 mg (2 x 100 mg) PO BID hydromorphone 2 mg (1/2 x 4 mg) PO Q8H PRN levetiracetam (Keppra) 1,000 mg PO BID levetiracetam (Keppra) 250 mg PO BID lisinopril-hydrochlorothiazide 10-12.5 mg 1 tab PO QAM metformin 500 mg PO BEDTIME omega 4-ysu-obi-fish oil 1,000 mg (120 mg-180 mg) (Fish Oil) 1 cap PO QPM omeprazole 40 mg PO QAM oxycodone 5 mg PO Q6H PRN sertraline 50 mg PO QPM vitamin B complex (B Complex-Vitamin B12 tablet) 1 tab PO QAM zolpidem 10 mg PO BEDTIME PRN HPI HPI Anal Carcinoma: Details: [age] year old female referred for high-grade anal dysplasia. She had under gone biopsy of a perianal lesion with gyne last 08/13/2023. 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 She says she has had this perianal lesion for about over a year now. She seems that this has increased in size. She denies any pain or tenderness. She denies any discharge. She denies any bleeding. She denies high risk sexual behavior. [facility] Medical History Back pain Lumbar degenerative disc disease Panic attacks Anxiety Depression GERD (gastroesophageal reflux disease) Migraines HTN (hypertension) Insomnia Asthma High cholesterol Seizures Diabetes Surgical History Hx of foot surgery History of esophagogastroduodenoscopy (EGD) H/O colonoscopy H/O eye surgery History of breast biopsy History of back surgery H/O tubal ligation H/O: hysterectomy Family History Mother Diabetes Sister Colon cancer Brother Cirrhosis of liver Social History Household Members: Spouse Housing: House Are you a primary care support representative to a significant other at home: No Do you presently have visiting nurse or other home services: No Alcohol intake: current Alcohol intake frequency: holidays/special occasions only Comment: pt states arm is sore--had previous sx on arm Patient Tobacco Use Status: Former Tobacco user Tobacco use type: Cigarette Years Smoked: 20 e-Cigarette/Vaping Use: Never Used Second Hand Smoke Exposure: Yes Substance Use Type: Marijuana service: No Current occupational status: retired Cognitive needs: Yes (cane/ walker) Hearing needs: No Vision needs: Yes (glasses) Review of Systems Const Denies chills and Denies fever(s) Card Denies chest pain, Denies dyspnea and Denies dyspnea on exertion Resp Denies cough, Denies dyspnea and Denies dyspnea on exertion GI Denies hematochezia and Denies change in bowel habits Denies hematuria Musc Denies back pain and Denies limited range of motion Neuro Denies focal weakness and Denies convulsions Psych Denies depression and Denies mood swings Physical Exam Const General: comfortable and no acute distress Orientation/consciousness: patient oriented x3 Neck Neck: Yes no lymphadenopathy Resp Auscultation: clear to auscultation bilaterally Cardio Rhythm: regular rhythm GI Other: Rectal exam shows an elevated, irregular, fleshy skin lesion, about 1 cm in widest dimension in the perianal area on the right side anteriorly Palpation (GI): Soft to palpation, nontender and no guarding Neuro General: patient oriented x3 Assessment & Plan Assessment & Plan (1) AIN grade III: Code(s): D01.3 - 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 I therefore recommended proceeding with wide excision. I explained the technique of exam under anesthesia and excision of this perianal lesion. I reviewed the risks including but not limited to bleeding, infections, postop pain as well as the benefits and alternatives. She understands and wants to proceed. I will also review the plan with Dr. Velez who had done the biopsy. Coding Level of Care Code New Pt Level 3 (58327) Diagnoses AIN grade III D01.3
== END 2023-08-27 11:04 | disposition home or self-care (01) ==
PROVIDERS: PCP Internal Medicine; Visit Provider Surgery
DX: D01.3 Carcinoma in situ of anus and anal canal (principal)
CPT/HCPCS: 99204

== ENCOUNTER → 2023-08-27 10:29 | Outpatient (BNVA) | payer MEDICARE, OTHER, SELFPAY | PROVIDERS: PCP Internal Medicine; Visit Provider Surgery | DX: D01.3 Carcinoma in situ of anus and anal canal (principal); Z98.890 Other specified postprocedural states | CPT/HCPCS: 99202 ==

== ENCOUNTER 2023-09-03 09:03 | Outpatient (REF) | payer MEDICARE, OTHER, SELFPAY ==
--- NOTE | ~2023-09-03 | XR_ITS ---
EXAMINATION: XR LUMBAR SPINE CLINICAL INFORMATION: Reason for Exam Z98.1 - Arthrodesis status COMPARISON: January 2023 TECHNIQUE: Frontal lateral and coned-down L5-S1 frontal lateral, flexion and extension, 4 views. FINDINGS: Five vgo-yar-kcwzhtf lumbar vertebrae were identified maintaining normal height, stable grade 1 anterior spondylolisthesis of L5 on S1.. Dual rods, multiple screws, posterior fusion of L3 and L4 and placement of intervertebral disc spacer properly positioned. Narrowing of intervertebral disc spaces suggest underlying degenerative disc disease. Paravertebral soft tissues are unremarkable. There are radiolucencies, most likely superimposed bowel gas.. No radiographic evidence of osteolytic or osteoblastic lesions. XR/XR lumbar spine 4V min IMPRESSION: * Stable posterior fusion of L3 and L4. * Stable grade 1 anterior spondylolisthesis of L5 on S1. * Narrowing of intervertebral disc spaces suggest underlying degenerative disc disease. * No acute fracture.
== END 2023-09-03 09:04 | disposition home or self-care (01) ==
LOC: HO.HOSX 09:03
PROVIDERS: Visit Provider Physician Assistant
DX: Z47.89 Encounter for other orthopedic aftercare (principal); Z98.1 Arthrodesis status
CPT/HCPCS: 72110; 99212

== ENCOUNTER 2023-09-03 09:11 | Outpatient (AMB) | payer MEDICARE, OTHER, SELFPAY ==
--- NOTE | 2023-09-03 09:31 | HO.SPINEOV ---
Intake Visit Reasons: 2nd post op with xray Intake Note: Ms. Langston is here for her 2nd post op visit. 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 seizure-patient unsure Assessment & Plan Assessment & Plan (1) S/P lumbar fusion: Code(s): Z98.1 - Arthrodesis status Category: Medical Plan Procedure: L3-4 OLIF & removal previous construct from L4-S1 Sydnee Comes in today for her 2nd postoperative visit. She states that she continues to heal well, and has made good progress since I saw her last. She continues to have some days where she has pain, but overall that is very minor. She feels the bulk of her pain has been relieved by the surgery. She did report 1 incident where she fell while at home to her knees, but this did not seem to cause her much trouble. she is utilizing intermittent qzpl-drc-apslwgb medications. We reviewed her x-ray imaging from today which shows stable placement of the surgical construct. no new neurological deficits. The patient is able to ambulate well and rises from a seated position without difficulty. her posterior and evin-lateral incision sites are closed and well healed. I would like to follow up with Sydnee 1 more time in 2 months for her 3rd postoperative visit. Linden Mahajan MD,PhD [facility] Orders: Orders XR lumbar spine 4V min Today Z98.1 - Arthrodesis status Coding Level of Care Code Global (91967) Diagnoses S/P lumbar fusion Z98.1
== END 2023-09-03 09:48 | disposition home or self-care (01) ==
PROVIDERS: PCP Physician Assistant; Visit Provider Physician Assistant
DX: Z98.1 Arthrodesis status (principal)
CPT/HCPCS: 99024

== ENCOUNTER 2023-09-05 12:17 | Outpatient (REF) | payer MEDICARE, OTHER, SELFPAY ==
[2023-09-05 13:10] LABS: MANUAL DIFF FLAG NO
[2023-09-05 13:12] LABS: Basophils Percent Auto 0.8 % (0-2); Eosinophils Absolute Auto 0.1 X10*3/uL (0.0-0.4); Eosinophils Percent Auto 2.5 % (0-4); Hematocrit 39.1 % (37.0-47.0); Hemoglobin 12.8 g/dl (12.0-16.0); Lymphocytes Absolute Auto 1.8 X10*3/uL (1.2-4.9); Lymphocytes Percent Auto 36.8 % (20-40); Mean Corpuscular HGB Conc 32.7 g/dl (31.0-35.0); Mean Corpuscular Hemoglobin 29.5 pg (27.0-33.0); Mean Corpuscular Volume 90.1 fL (80.0-98.0); Mean Platelet Volume 11.7 fL (9.4-12.3); Monocytes Absolute Auto 0.3 X10*3/uL (0.1-1.2); Monocytes Percent Auto 7.1 % (2-11); Neutrophils Absolute Auto 2.5 x10*3/uL (2.0-8.3); Neutrophils Percent Auto 52.8 % (45-73); Platelet Count 229 X10*3/uL (160-400); Red Blood Count 4.34 X10*6/uL (4.20-5.50); Red Cell Distribution Width 12.3 % (11.0-16.0); White Blood Count 4.8 X10*3/uL (4.8-10.8)
[2023-09-05 13:20] LABS: Estimated Average Glucose 157 mg/dL; Hemoglobin A1c % 7.1 % (<6.0)
[2023-09-05 13:25] LABS: Alanine Aminotransferase 22 U/L (0-31); Albumin Level 4.8 g/dL (3.5-5.0); Alkaline Phosphatase 119 U/L (39-117); Anion Gap 17 (12-20); Aspartate Amino Transferase 24 U/L (5-31); Bilirubin Total 0.4 mg/dL (0.0-1.0); Blood Urea Nitrogen 14 mg/dL (9-16); Calcium 10.1 mg/dL (8.4-10.2); Carbon Dioxide 27 mmol/L (22-29); Chloride 101 mmol/L (96-108); Estimated Glomerular Filt Rate > 60; Glucose Random 167 mg/dL (60-115); Potassium 4.6 mmol/L (3.3-5.1); Sodium 140 mmol/L (135-145); Total Protein 8.2 g/dL (6.5-8.0)
[2023-09-05 14:01] LABS: Troponin-I High Sensitivity < 2.7 ng/L (<3.5-17.0)
[2023-09-05 14:39] LABS: Creatinine Urine 128.22 mg/dL; Microalbum/Creatinine Ratio Ur 16.3 ug/mg cr (<30)
== END 2023-09-05 12:18 | disposition home or self-care (01) ==
LOC: HO.10HDL 12:17
PROVIDERS: Visit Provider Internal Medicine
DX: E11.9 Type 2 diabetes mellitus without complications (principal); I10 Essential (primary) hypertension; J45.909 Unspecified asthma, uncomplicated; K21.9 Gastro-esophageal reflux disease without esophagitis
CPT/HCPCS: 36415; 80053; 82043; 82570; 83036; 84484; 85025

== ENCOUNTER 2023-09-10 10:44 | Outpatient (REF) | payer MEDICARE, OTHER, SELFPAY ==
--- NOTE | ~2023-09-10 | XR_ITS ---
EXAMINATION: XR CHEST CLINICAL INFORMATION: Chest pain COMPARISON: None available. TECHNIQUE: 2 views of the chest were obtained. FINDINGS: The lungs are adequately expanded. No focal consolidation. No pleural effusion, overt edema or pneumothorax. The cardiomediastinal silhouette is within normal limits. No acute osseous abnormality. Degenerative changes of thoracic spine. The posterior lumbar and interbody fusion hardware appears intact on the lateral view. XR/XR chest 2V IMPRESSION: No acute pulmonary disease.
== END 2023-09-10 10:45 | disposition home or self-care (01) ==
LOC: HO.XRAY 10:44
PROVIDERS: PCP Internal Medicine; Visit Provider Internal Medicine
DX: R07.9 Chest pain, unspecified (principal)
CPT/HCPCS: 71046

== ENCOUNTER 2023-10-19 07:33 | Day surgery (SDC) | payer MEDICARE, OTHER, SELFPAY ==
[2023-10-17 12:07] VITALS: BMI 27.6
--- NOTE | 2023-10-17 13:30 | HO.ANESPROP2 ---
Documented by User: Stephania Espinoza NP 10/17/23 13:32 HPI - Anesthesia Eval Consult details Narrative: 63yo F for Excision Perianal Lesion s/p OLIF 05/2023 with GA-ETT 7 (medically optimized prior) PMFSH Active Problems Active Problems: All Active Problems AIN grade III (Acute) Lesion of female perineum (Acute) S/P lumbar fusion (Acute) Lumbar spinal stenosis due to adjacent segment disease after fusion procedure (Acute) Hip pain, left (Acute) Cervical radiculopathy due to degenerative joint disease of spine (Acute) Lumbar stenosis with neurogenic claudication (Acute) Lumbar radiculopathy (Acute) Spinal stenosis of lumbar region with radiculopathy (Acute) Spondylolisthesis, lumbar region (Acute) Depression (Acute) Generalized anxiety disorder (Acute) Sacroiliitis (Acute) Muscle spasm (Acute) Lumbar post-laminectomy syndrome (Acute) Sacroiliac joint pain (Acute) Lumbar spondylosis (Acute) Lumbar degenerative disc disease (Acute) Black head (Acute) Lumbar back pain with radiculopathy affecting left lower extremity (Acute) Anemia (Acute) Vitamin D deficiency (Acute) Hypertension (Acute) Migraines (Acute) GERD (gastroesophageal reflux disease) (Acute) Panic attacks (Acute) Anxiety and depression (Acute) Bacterial vaginosis (Acute) Well woman exam (Acute) Insomnia (Acute) Seizures (Acute) Asthma (Acute) Diabetes (Acute) Past Medical History Medical History Chest pain Back pain Lumbar degenerative disc disease Panic attacks Anxiety Depression GERD (gastroesophageal reflux disease) Migraines HTN (hypertension) Insomnia Asthma High cholesterol Seizures Diabetes Family History Family History Mother Diabetes Sister Colon cancer Brother Cirrhosis of liver Throat cancer Maternal Aunt Colon cancer Family history of problems with anesthesia: No Surgical History Surgical History History of back surgery Hx of foot surgery History of esophagogastroduodenoscopy (EGD) H/O colonoscopy H/O eye surgery History of breast biopsy History of back surgery H/O tubal ligation H/O: hysterectomy History of Problems with Anesthesia: No Social History Social History Household Members: Spouse Housing: House Are you a primary career technical counselor to a significant other at home: No Do you presently have visiting nurse or other home services: No Alcohol intake: current Alcohol intake frequency: does not drink Comment: pt states arm is sore--had previous sx on arm Patient Tobacco Use Status: Former Tobacco user Tobacco use type: Cigarette Years Smoked: 20 e-Cigarette/Vaping Use: Never Used Second Hand Smoke Exposure: Yes Substance Use Type: Marijuana Substance Use Type Other:: PT HASNOT USED MARIJUANA DROPS IN ONE MONTH Are you DNR?: No Advance Directives: No Advance Directives Information Provided: Yes service: No Current occupational status: retired Cognitive needs: Yes (cane/ walker) Hearing needs: No Vision needs: Yes (glasses) Meds Allergies Allergy/AdvReac Type Severity Reaction Status Date / Time topiramate [Topamax] Allergy Intermediate ? Verified 08/27/23 10:36 seizure-patient unsure ibuprofen Allergy Mild Stomach Verified 10/19/23 10:02 Upset Home Medications ?Medication ?Instructions ?Recorded ?Confirmed ?Last Taken ?Type vitamin B complex (B 1 tab PO QAM 05/02/23 10/17/23 Unknown History Complex-Vitamin B12 tablet) aspirin 81 mg tablet,delayed 81 mg PO QAM 06/06/23 10/17/23 10/13/23 History release atorvastatin 40 mg tablet (Lipitor) 40 mg PO BEDTIME 06/06/23 10/17/23 Unknown History cholecalciferol (vitamin D3) 25 25 mcg PO QAM 06/06/23 10/17/23 Unknown History mcg (1,000 unit) capsule lisinopril 10 1 tab PO QAM 06/06/23 10/17/23 Unknown History mg-hydrochlorothiazide 12.5 mg tablet metformin 500 mg tablet 500 mg PO BEDTIME 06/06/23 10/17/23 Unknown History omega 5-akq-ecy-fish oil 1,000 mg 1 cap PO QPM 06/06/23 10/17/23 10/13/23 History (120 mg-180 mg) capsule (Fish Oil) omeprazole 40 mg capsule,delayed 40 mg PO QAM 06/06/23 10/17/23 10/19/23 History release sertraline 25 mg tablet 50 mg PO QPM 06/06/23 10/17/23 Unknown History zolpidem 10 mg tablet 10 mg PO BEDTIME PRN Insomnia 06/06/23 10/17/23 Unknown History Exam Height,Weight and Vital Signs: Height 5 ft 2 in Weight 68.492 kg Pertinent Lab Results Pertinent Lab Results: Laboratory Tests 09/05/23 12:25 WBC 4.8 Hgb 12.8 Hct 39.1 Plt Count 229 D Sodium 140 Potassium 4.6 D Chloride 101 Carbon Dioxide 27 BUN 14 Creatinine 0.72 Narrative Narrative: EKG 02/2023 NSR @ 68 Assessment and Plan Assessment Anesthesia Assessment: Chart Reviewed Final Anesthetic Review Family History of Problems with Anesthesia: No History of Problems with Anesthesia: No Documented by User: Mary Guthrie MD 10/19/23 10:03 HPI - Anesthesia Eval Consult details Narrative: 63yo F for Excision Perianal Lesion s/p OLIF 05/2023 with GA-ETT 7 (medically optimized prior) 10/19/23: Being worked up for chest pain. Scheduled to have stress test in October. Denies any chest pain in last few weeks PMFSH Past Medical History Medical History Chest pain Back pain Lumbar degenerative disc disease Panic attacks Anxiety Depression GERD (gastroesophageal reflux disease) Migraines HTN (hypertension) Insomnia Asthma High cholesterol Seizures Diabetes Family History Family History Mother Diabetes Sister Colon cancer Brother Cirrhosis of liver Throat cancer Maternal Aunt Colon cancer Family history of problems with anesthesia: No Surgical History Surgical History History of back surgery Hx of foot surgery History of esophagogastroduodenoscopy (EGD) H/O colonoscopy H/O eye surgery History of breast biopsy History of back surgery H/O tubal ligation H/O: hysterectomy History of Problems with Anesthesia: No Social History Social History Household Members: Spouse Housing: House Are you a primary career technical counselor to a significant other at home: No Do you presently have visiting nurse or other home services: No Alcohol intake: current Alcohol intake frequency: does not drink Comment: pt states arm is sore--had previous sx on arm Patient Tobacco Use Status: Former Tobacco user Tobacco use type: Cigarette Years Smoked: 20 e-Cigarette/Vaping Use: Never Used Second Hand Smoke Exposure: Yes Substance Use Type: Marijuana Substance Use Type Other:: PT HASNOT USED MARIJUANA DROPS IN ONE MONTH Are you DNR?: No Advance Directives: No Advance Directives Information Provided: Yes service: No Current occupational status: retired Cognitive needs: Yes (cane/ walker) Hearing needs: No Vision needs: Yes (glasses) Meds Allergies Allergy/AdvReac Type Severity Reaction Status Date / Time topiramate [Topamax] Allergy Intermediate ? Verified 08/27/23 10:36 seizure-patient unsure ibuprofen Allergy Mild Stomach Verified 10/19/23 10:02 Upset Home Medications ?Medication ?Instructions ?Recorded ?Confirmed ?Last Taken ?Type vitamin B complex (B 1 tab PO QAM 05/02/23 10/17/23 Unknown History Complex-Vitamin B12 tablet) aspirin 81 mg tablet,delayed 81 mg PO QAM 06/06/23 10/17/23 10/13/23 History release atorvastatin 40 mg tablet (Lipitor) 40 mg PO BEDTIME 06/06/23 10/17/23 Unknown History cholecalciferol (vitamin D3) 25 25 mcg PO QAM 06/06/23 10/17/23 Unknown History mcg (1,000 unit) capsule lisinopril 10 1 tab PO QAM 06/06/23 10/17/23 Unknown History mg-hydrochlorothiazide 12.5 mg tablet metformin 500 mg tablet 500 mg PO BEDTIME 06/06/23 10/17/23 Unknown History omega 1-acu-exj-fish oil 1,000 mg 1 cap PO QPM 06/06/23 10/17/23 10/13/23 History (120 mg-180 mg) capsule (Fish Oil) omeprazole 40 mg capsule,delayed 40 mg PO QAM 06/06/23 10/17/23 10/19/23 History release sertraline 25 mg tablet 50 mg PO QPM 06/06/23 10/17/23 Unknown History zolpidem 10 mg tablet 10 mg PO BEDTIME PRN Insomnia 06/06/23 10/17/23 Unknown History Exam Height,Weight and Vital Signs: Height 5 ft 2 in Weight 68.492 kg Vital Signs Temp Pulse Resp BP Pulse Ox O2 Del Method 10/19/23 08:10 98.5 F 64 18 153/44 H 97 Room Air Pertinent Lab Results Pertinent Lab Results: Laboratory Tests 09/05/23 12:25 WBC 4.8 Hgb 12.8 Hct 39.1 Plt Count 229 D Sodium 140 Potassium 4.6 D Chloride 101 Carbon Dioxide 27 BUN 14 Creatinine 0.72 Lab Results 10/19/23 Range/Units 07:58 POC Glucose 158 H (60-115) mg/dL Narrative Narrative: EKG 02/2023 NSR @ 68 Date of Service: 10/19/23 Procedure(s): ECG 12 lead EKG Vent. Rate : 062 BPM Atrial Rate : 062 BPM P-R Int : 136 ms QRS Dur : 090 ms QT Int : 438 ms P-R-T Axes : 021 000 033 degrees QTc Int : 444 ms Normal sinus rhythm Minimal voltage criteria for LVH, may be normal variant ( R in aVL ) Nonspecific ST abnormality Abnormal ECG When compared with ECG of 11-MAY-2008 12:56, No significant change was found Airway Mallampati Class: III TM Dist: >3cm Neck ROM: Full Loose/Missing/Broken Teeth: No (Denies broken, loose, missing teeth) Heart: RRR Lungs: CTAB Assessment and Plan Assessment Anesthesia Assessment: Anesthesia Plan Discussed and Chart Reviewed Final Anesthetic Review Family History of Problems with Anesthesia: No History of Problems with Anesthesia: No NPO: Yes ASA Class: III Final Preanesthetic Review: No Changes in Pt Med Stat, Meds/Allgs Chart Reviewed, Consent Obtained/Reviewed and Anes Risks/Benef Reviewed Patient Risk: Intermediate Procedure Risk: Low Assessment/Block/Sedation in SS: Assess/Block/Sedation-SS Anesthetic Plan Anesthetic Plan: GA and MAC: Disposition: Standard PACU
[2023-10-19 08:01] LABS: Glucose, Whole Blood 158 mg/dL (60-115)
--- NOTE | 2023-10-19 08:04 | ECG_ITS ---
Test Reason : CP Blood Pressure : / mmHG Vent. Rate : 062 BPM Atrial Rate : 062 BPM P-R Int : 136 ms QRS Dur : 090 ms QT Int : 438 ms P-R-T Axes : 021 000 033 degrees QTc Int : 444 ms Poor data quality, interpretation may be adversely affected Normal sinus rhythm Minimal voltage criteria for LVH, may be normal variant ( R in aVL ) Nonspecific ST abnormality Abnormal ECG When compared with ECG of 11-MAY-2008 12:56, Heart rate has increased Referred By: Mary Guthrie Electronically Signed By:ANDRES CASTANON
[2023-10-19 08:10] VITALS: BP 153/44; PULSE 64; RESP 18; TEMP 36.9; O2SAT 97; BMI 27.9
[2023-10-19] MEDS: Lactated Ringers 1,000 ML 100 ML IVCONT (08:30)
--- NOTE | 2023-10-19 09:50 | MHC.SHP ---
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 Verified 08/27/23 10:36 seizure-patient unsure Review of Systems Sugical H&P ROS: Negative: Constitution, Cardiovascular, Respiratory, Gastrointestinal and Genitourinary Exam Surgical H&P Exam: Normal: Heart, Normal: Lungs and Normal: Abdomen Exam Comment: Fleshy lesion in the right perianal area Plan Diagnosis/Plan: Unchanged I have reviewed the history and physical and performed a pertinent physical examination on my patient. No changes have occurred unless specified. Time Spent With Patient Time: Total time managing care of this patient today ____ minutes.
--- NOTE | 2023-10-19 10:49 | W.PM.OPN ---
Operative Note Operative Note Date of Service: 10/19/23 Narrative: Preop diagnosis: Perianal lesion with AIN 3 Postop diagnosis: The same Procedure: Exam under anesthesia, excision of perianal lesion with AIN 3 Surgeon: Narinder Larson MD The patient is an 63-year-old female referred for a perianal lesion. She had been previously seen by gynecology and a biopsy of this lesion showed AIN 3. I therefore scheduled her for exam under anesthesia and excision of the perianal lesion. I reviewed with the technique of this procedure as well as the risks, benefits, and alternatives She was brought to the operating room. She was placed in right lateral decubitus position under monitored anesthesia care. The left buttock was retracted away from the perianal area. The perianal areas prepped and draped in the usual sterile fashion. A surgical time-out was done. The patient received Cefotan 2 g IV preoperatively There was note of an elevated, fleshy, irregular shaped lesion on the right perianal area anteriorly. This was about 1.2 cm in widest dimension. I infiltrated this area with lidocaine 1%. I made an elliptical incision around this lesion using blade 15. This was carried down through the full-thickness of the skin and part of the subcutaneous layer to excise this entire lesion with normal-looking skin margins. I closed the incision with full-thickness chromic 3-0 simple interrupted sutures. There was note of good hemostasis I proceeded to then used a retractor to examined the anal canal. There were no other lesions. The patient did have moderate size external hemorrhoids on both the left and right side I then infiltrated the perianal area with Marcaine 0.5% for postop analgesia and the procedure was completed The patient tolerated procedure well. There were no immediate complications. Initial and final counts of sponges and instruments were correct. Estimated blood loss was less than 10 cc The patient was then transferred to the recovery room with stable vital signs.
[2023-10-19 10:55] VITALS: BP 115/53; PULSE 93; RESP 14; TEMP 36.6; O2SAT 97
[2023-10-19 11:10] VITALS: BP 127/61; PULSE 70; RESP 10; O2SAT 97
[2023-10-19 11:25] VITALS: BP 135/64; PULSE 70; RESP 12; O2SAT 97
== END 2023-10-19 12:10 | disposition home or self-care (01) ==
PROVIDERS: PCP Internal Medicine; Visit Provider Surgery
PROC: (CPT 46922; principal; 2023-10-19 09:40)
DX: D01.3 Carcinoma in situ of anus and anal canal (principal); E78.00 Pure hypercholesterolemia, unspecified; I10 Essential (primary) hypertension; J45.909 Unspecified asthma, uncomplicated; E11.9 Type 2 diabetes mellitus without complications; R56.9 Unspecified convulsions; Z79.84 Long term (current) use of oral hypoglycemic drugs; Z79.899 Other long term (current) drug therapy; Z79.82 Long term (current) use of aspirin; Z88.8 Allergy status to other drugs, medicaments and biological substances; Z87.891 Personal history of nicotine dependence
CPT/HCPCS: 46922; 82947; 88305; 88342; 88360; 93005; J0131; J0690; J1100; J1596; J2250; J2405; J2704; J3010

== ENCOUNTER → 2023-10-19 07:33 | Outpatient (BNV) | payer MEDICARE, OTHER, SELFPAY | PROVIDERS: PCP Internal Medicine; Visit Provider Surgery | DX: R85.613 High grade squamous intraepithelial lesion on cytologic smear of anus (HGSIL) (principal) | CPT/HCPCS: 46922 ==

== ENCOUNTER 2023-10-29 09:09 | Outpatient (AMB) | payer MEDICARE, OTHER, SELFPAY ==
--- NOTE | 2023-10-29 09:29 | HO.SPINEOV ---
Intake Visit Reasons: 3rd post op in 2 month Intake Note: Ms. 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 seizure-patient unsure ibuprofen Allergy (Mild, Verified 10/19/23 10:02) Stomach Upset Assessment & Plan Assessment & Plan (1) S/P lumbar fusion: Code(s): Z98.1 - Arthrodesis status Category: Medical Plan Procedure: L3-4 OLIF & removal previous construct from L4-S1 Sydnee Comes in today for her 3rd postoperative visit. She reports continued relief of her low back pain and improvements with her ambulation. She states that on a recent trip to [place] she unfortunately slipped on her left side and fell onto the OLIF incision site. She reports continued pain near her left flank. Thankfully she reports no issues with ambulation or issues with the pain in her low back. She states overall she is very satisfied with the surgery and feels much better than she did preoperatively. No new neurological deficits. The patient is able to ambulate well and rises from a seated position without difficulty. Her evin-lateral incision site is closed and well healed. I would like to have Sydnee scheduled out for 1 more follow up visit in [address] scan to evaluate patient progress and fusion status. I will have our office call the patient and book this. Linden Mahajan MD,PhD [facility] Coding Level of Care Code Global (73347) Diagnoses S/P lumbar fusion Z98.1
== END 2023-10-29 09:48 | disposition home or self-care (01) ==
PROVIDERS: PCP Internal Medicine; Visit Provider Physician Assistant
DX: Z98.1 Arthrodesis status (principal)
CPT/HCPCS: 99212

== ENCOUNTER → 2023-10-29 09:09 | Outpatient (BNVA) | payer MEDICARE, OTHER, SELFPAY | PROVIDERS: PCP Internal Medicine; Visit Provider Physician Assistant | DX: Z47.89 Encounter for other orthopedic aftercare (principal); Z98.1 Arthrodesis status | CPT/HCPCS: 99212 ==

== ENCOUNTER 2023-10-31 09:05 | Outpatient (AMB) | payer MEDICARE, OTHER, SELFPAY ==
[2023-10-31 09:30] VITALS: BMI 27.2
--- NOTE | 2023-10-31 09:30 | A.OFFVIS_ITS ---
Vital Signs 10/31/23 09:30 Height 5 ft 2 in Weight 149 lb BMI 27.2 Intake Visit Reasons: s/p EUA exc perianal lesion Intake Note: Patient presents for a post-op assessment s/p EUA exc perianal lesion with AIN 3. Pt c/o; reports no rectal bleeding, reports no changes in bowel habits, reports pain which radiates towards back. 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 seizure-patient unsure ibuprofen Allergy (Mild, Verified 10/31/23 09:35) Stomach Upset HPI HPI s/p EUA exc perianal lesion: Details: She is here for postop visit. She had undergone exam under anesthesia and excision of AIN3 lesion in the perianal area last 10/19/2023. She tolerated procedure well. She does admit to some postop pain . She denies any bleeding. [facility] Medical History Chest pain Back pain Lumbar degenerative disc disease Panic attacks Anxiety Depression GERD (gastroesophageal reflux disease) Migraines HTN (hypertension) Insomnia Asthma High cholesterol Seizures Diabetes Surgical History History of surgical removal of lesion (~10/19/23) History of back surgery Hx of foot surgery History of esophagogastroduodenoscopy (EGD) H/O colonoscopy H/O eye surgery History of breast biopsy History of back surgery H/O tubal ligation H/O: hysterectomy Family History Mother Diabetes Sister Colon cancer Brother Cirrhosis of liver Throat cancer Maternal Aunt Colon cancer Social History Household Members: Spouse Housing: House Are you a primary ocular care technologist to a significant other at home: No Do you presently have visiting nurse or other home services: No Alcohol intake: current Alcohol intake frequency: does not drink Comment: pt states arm is sore--had previous sx on arm Patient Tobacco Use Status: Former Tobacco user Tobacco use type: Cigarette Years Smoked: 20 e-Cigarette/Vaping Use: Never Used Second Hand Smoke Exposure: Yes Substance Use Type: Marijuana service: No Current occupational status: retired Cognitive needs: Yes (cane/ walker) Hearing needs: No Vision needs: Yes (glasses) Review of Systems Const Denies chills and Denies fever(s) Card Denies chest pain at rest GI Denies abdominal pain Physical Exam Vital Signs: BMI result Body Mass Index 27.2 Const General: comfortable and no acute distress Resp Effort & Inspection: normal respiratory effort GI Other: Rectal exam shows the excision site the perianal area anteriorly is well healing, not infected, no discharge Assessment & Plan Assessment & Plan (1) 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 Her incision site is healing well. Her path report confirms AIN 3. I will see her again in the office in about 6 months to close monitoring including anoscopy She understands the plan and is comfortable with this. Coding Level of Care Code Global (06754) Diagnoses AIN grade III D01.3
== END 2023-10-31 10:23 | disposition home or self-care (01) ==
PROVIDERS: PCP Internal Medicine; Visit Provider Surgery
DX: D01.3 Carcinoma in situ of anus and anal canal (principal)
CPT/HCPCS: 99024

== ENCOUNTER → 2023-10-31 09:05 | Outpatient (BNVA) | payer MEDICARE, OTHER, SELFPAY | PROVIDERS: PCP Internal Medicine; Visit Provider Surgery | DX: D01.3 Carcinoma in situ of anus and anal canal (principal) | CPT/HCPCS: 99212 ==

== ENCOUNTER → 2023-11-08 09:24 | Outpatient (REF) | payer MEDICARE, OTHER, SELFPAY ==
--- NOTE | ~2023-11-08 | NM_ITS ---
Lexiscan Myocardial perfusion study Indication: Chest tightness to evaluate for myocardial ischemia Technique: The patient was brought in for a Lexiscan perfusion study on 11/08/2023 and was injected 0.4 mg of Lexiscan intravenously. Within a minute of this injection 25 mCi of sestamibi was given intravenously. Images were obtained using the SPECT gamma camera interlaced with the gating device. Images were obtained in supine position. Resting perfusion study was performed on 11/14/2023. Patient was administered 25 mCi of sestamibi intravenously at rest. Images were then obtained in supine position. Images obtained without without CT attenuation. Total DLP 106 mGy-cm. Images were processed with the software and compared side to side in short axis, horizontal long axis and vertical long axis views. Findings: The stress perfusion study showed nonattenuated images show normal uptake of radiotracer in all segments of the LV myocardium. There is thickening of the apex of the LV myocardium. Attenuated corrected images show moderately reduced uptake in the apex of the LV myocardium. The gated study shows normal LV systolic function with calculated LVEF of 71%. LV cavity is normal in size. The gated study shows normal systolic wall thickening and contraction of segments. Resting study shows no change in perfusion pattern compared to stress perfusion study. Gating at rest reveals normal systolic wall motion with ejection fraction at 54%. The findings are consistent with no reversible defect suggestive of ischemia. Normal myocardial perfusion. NM/NM riaz perf SPECT rest & str Impression: 1. Myocardial perfusion imaging study shows normal myocardial perfusion 2. Gated LVEF is 71% 3. Transient ischemic dilatation not present Nondiagnostic changes on EKG. Electronically signed by: Alonso Mo MD 11/14/2023 03:28 PM EDT
--- NOTE | 2023-11-08 09:28 | CA_ITS ---
Acquisition Time: 2023-11-08 09:35:01 Total Exercise Time: 00:02:03 Test Indications: CHEST PAIN,ASTHMA Medications: Protocol: DANIEL Max HR: 109 BPM 69% of Pred: 157 BPM Max BP: 142/070 mmHG Max Work Load: 1.0 METS Pharmacological stress test with Lexiscan injection while sitting and kicing her legs, without anginal symptoms, without arrhythmias, with normotensive response to injection, with nondiagnoisitic EKGs. Aminophylline 75mg IVP given to reverse Lexiscan. Nuclear images pending. Test reviewed with Dr. Mo Referred By: Narinder Gregg Overread By: Kaye Lucas
== END ==
LOC: HO.CARD 09:24
PROVIDERS: PCP Internal Medicine; Visit Provider Internal Medicine
DX: R07.9 Chest pain, unspecified (principal); J45.909 Unspecified asthma, uncomplicated
CPT/HCPCS: 78452; 93017; A9500; J0280; J2785

== ENCOUNTER → 2023-11-08 09:28 | Outpatient (BNV) | payer MEDICARE, OTHER, SELFPAY | PROVIDERS: PCP Internal Medicine; Visit Provider Nurse Practitioner | DX: R07.9 Chest pain, unspecified (principal) | CPT/HCPCS: 78452; 93016; 93018 ==

== ENCOUNTER 2024-01-17 19:58 | Emergency (ER) | payer MEDICARE, OTHER, SELFPAY ==
--- NOTE | 2024-01-17 | ECG_ITS ---
Test Reason : SYNCOPE Blood Pressure : / mmHG Vent. Rate : 074 BPM Atrial Rate : 074 BPM P-R Int : 144 ms QRS Dur : 098 ms QT Int : 416 ms P-R-T Axes : 026 014 066 degrees QTc Int : 461 ms Normal sinus rhythm Normal ECG When compared with ECG of 19-OCT-2023 08:16, No significant change was found Referred By: Generic ED Physician Electronically Signed By:JOSE CORDOVA
--- NOTE | ~2024-01-17 | CT_ITS ---
EXAMINATION: CT HEAD WITHOUT CONTRAST CLINICAL INFORMATION: Seizure. Left-sided headache. COMPARISON: None available. TECHNIQUE: Contiguous axial imaging was performed from the skull base to vertex without intravenous administration of contrast. This CT examination was performed using dose optimization techniques as appropriate, variously including the following: *Automated exposure control *Adjustment of mA and/or kV according to patient size (this includes techniques or standardized protocols for targeted exams where dose is matched to indication/reason for exam; i.e. extremities or head) *Use of iterative reconstruction technique DLP: 682 mGy-cm FINDINGS: The lateral, third and fourth ventricles are normally outlined. The cortical sulci and basal cisterns are normally outlined as well. There is mild bilateral periventricular and central white matter diminished attenuation. There is no acute territorial defects, hemorrhage or midline shift. The extra-axial spaces are unremarkable. Calvarium/scalp: Intact. Maxillofacial sinuses and mastoids: Clear as visualized. CT/CT head/brain wo IV con IMPRESSION: 1. No acute intracranial pathology. 2. Mild chronic microangiopathy. Electronically signed by: Srini Schuster MD 01/17/2024 11:13 PM [facility]
[2024-01-17 20:01] VITALS: BP 138/71; BP 150/79; PULSE 79; PULSE 84; RESP 16; TEMP 36.4; O2SAT 96; O2SAT 98; BMI 28.7
[2024-01-17 20:20] LABS: MANUAL DIFF FLAG NO
[2024-01-17 20:22] LABS: Basophils Percent Auto 0.7 % (0-2); Eosinophils Absolute Auto 0.2 X10*3/uL (0.0-0.4); Hematocrit 33.4 % (37.0-47.0); Hemoglobin 11.3 g/dl (12.0-16.0); Imm Gran Abs Auto 0.01 X10*3/uL (0.00-0.03); Imm Gran Pct Auto 0.2 % (0.0-0.4); Lymphocytes Absolute Auto 2.7 X10*3/uL (1.2-4.9); Lymphocytes Percent Auto 48.2 % (20-40); Mean Corpuscular HGB Conc 33.8 g/dl (31.0-35.0); Mean Corpuscular Hemoglobin 29.4 pg (27.0-33.0); Mean Platelet Volume 11.6 fL (9.4-12.3); Monocytes Absolute Auto 0.4 X10*3/uL (0.1-1.2); Monocytes Percent Auto 7.6 % (2-11); Neutrophils Absolute Auto 2.2 x10*3/uL (2.0-8.3); Neutrophils Percent Auto 39.3 % (45-73); Platelet Count 160 X10*3/uL (160-400); Red Blood Count 3.84 X10*6/uL (4.20-5.50); Red Cell Distribution Width 12.8 % (11.0-16.0); White Blood Count 5.5 X10*3/uL (4.8-10.8)
[2024-01-17 20:35] LABS: Alanine Aminotransferase 22 U/L (0-31); Albumin Level 4.5 g/dL (3.5-5.0); Alkaline Phosphatase 100 U/L (39-117); Anion Gap 19 (12-20); Aspartate Amino Transferase 27 U/L (5-31); Bilirubin Total 0.2 mg/dL (0.0-1.0); Blood Urea Nitrogen 20 mg/dL (9-16); Calcium 9.5 mg/dL (8.4-10.2); Carbon Dioxide 22 mmol/L (22-29); Chloride 103 mmol/L (96-108); Estimated Glomerular Filt Rate 59; Glucose Random 195 mg/dL (60-115); Potassium 3.7 mmol/L (3.3-5.1); Sodium 140 mmol/L (135-145); Total Protein 7.5 g/dL (6.5-8.0)
--- NOTE | 2024-01-17 20:40 | PC.NURSE ---
celsoa from home s/p witnessed syncopal episode while on the couch. family reports pt became increasingly weak/lethargic and then had a 45 sec episode of unresponsiveness - became alert for a few seconds and then had another witnessed syncopal episode onto couch. -headstrike. a&ox4 upon EMS arrival. hx seizures - family denies convulsions/incontinence/trauma. compliant w/ seizure medication (keppra). upon ED arrival - a&ox4. vss and up to date. nsr on the athletic monitor. pt remembers event - pt reports left sided DAMIAN prior to syncopal episode. denies any change in vision/lightheadedness/dizziness prior to event. 20gIV in the left AC via EMS. labs obtained in RUE. ekg performed by tech. on RA w/o difficulty - no sob/wob noted. respirations even/unlabored. family bedside for support. plan of care ongoing. call hall placed within reach.
[2024-01-17 20:43] LABS: Troponin-I High Sensitivity < 2.7 ng/L (<3.5-17.0)
[2024-01-17 21:35] VITALS: O2SAT 99
[2024-01-17 21:48] LABS: Influenza A PCR NEGATIVE (Negative); Influenza B PCR NEGATIVE (Negative); Resp Syncy Virus RNA Qual PCR NEGATIVE (Negative); SARS COV2 PCR INHOUSE NEGATIVE (Negative)
[2024-01-17 22:11] VITALS: BP 110/46; PULSE 81; RESP 18; TEMP 36.5; O2SAT 96
--- NOTE | 2024-01-17 22:28 | ED_ITS ---
HPI - General Adult General Chief complaint: Syncope Stated complaint: Syncopal s episode, conscious, A&O Time Seen by Provider: 01/17/24 21:49 Source: patient, family () and EMS Mode of arrival: EMS Limitations: no limitations History of Present Illness ED Provider: SYLVAIN PINEDA PA-C HPI narrative: 63-year-old female with pmhx significant for seizures on Depakote, diabetes, asthma, hypertension, migraines, GERD, depression, anxiety presents to the ED today via EMS from home for evaluation following a witnessed syncopal episode while seated on the couch prior to arrival. Per family, patient appeared weak while seated and had a 45 second episode of unresponsiveness. No convulsions. She then regained consciousness for a few seconds for syncopized itching again onto the couch. No head strike. Patient tells me that she heard her family talking and informing her that they were calling 911. She does not recall the episode itself. Reports feeling confused however more alert upon arrival to ED. denies losing control of her bowel or bladder. Denies biting her tongue. Reports longstanding history of seizures since she was a child. She takes her Depakote as prescribed. No missed doses. No new medications or recent medication changes. She tells me this is the typical presentation for her seizures. Her last seizure was approximately 2 years ago. Denies any physical complaints at present. Denies headache, dizziness, vision changes, chest pain, palpitations, sob, n/v, dysuria, hematuria. Related Data Home Medications ?Medication ?Instructions ?Recorded ?Confirmed vitamin B complex (B 1 tab PO QAM 05/02/23 10/17/23 Complex-Vitamin B12 tablet) aspirin 81 mg tablet,delayed 81 mg PO QAM 06/06/23 10/17/23 release atorvastatin 40 mg tablet (Lipitor) 40 mg PO BEDTIME 06/06/23 10/17/23 cholecalciferol (vitamin D3) 25 25 mcg PO QAM 06/06/23 10/17/23 mcg (1,000 unit) capsule lisinopril 10 1 tab PO QAM 06/06/23 10/17/23 mg-hydrochlorothiazide 12.5 mg tablet metformin 500 mg tablet 500 mg PO BEDTIME 06/06/23 10/17/23 omega 1-ezg-cqr-fish oil 1,000 mg 1 cap PO QPM 06/06/23 10/17/23 (120 mg-180 mg) capsule (Fish Oil) omeprazole 40 mg capsule,delayed 40 mg PO QAM 06/06/23 10/17/23 release sertraline 25 mg tablet 50 mg PO QPM 06/06/23 10/17/23 zolpidem 10 mg tablet 10 mg PO BEDTIME PRN Insomnia 06/06/23 10/17/23 Previous Rx's ?Medication ?Instructions ?Recorded levetiracetam 1,000 mg tablet 1,000 mg PO BID #60 tabs 08/11/22 (Keppra) levetiracetam 250 mg tablet 250 mg PO BID #60 tabs 08/11/22 (Keppra) jptxfviekd-mdbkmiidamfpe-uzhajhbv 1 tab PO BID PRN pain #30 tabs 03/09/23 50 mg-325 mg-40 mg tablet gabapentin 100 mg capsule 200 mg (2 x 100 mg) PO BID #60 caps 03/09/23 albuterol sulfate 90 mcg/actuation 2 puff inhalation Q6H PRN 07/06/23 aerosol inhaler shortness of breath or wheezing #6.7 grams oxycodone 5 mg tablet 5 mg PO Q6H PRN pain #30 tabs 07/20/23 oxycodone-acetaminophen 5 mg-325 1 tab PO Q4-6H PRN pain #20 tabs 10/19/23 mg tablet (Percocet) oxycodone-acetaminophen 5 mg-325 1 tab PO TID PRN pain #15 tabs 10/26/23 mg tablet (Percocet) Allergies Allergy/AdvReac Type Severity Reaction Status Date / Time topiramate [Topamax] Allergy Intermediate ? Verified 01/17/24 20:02 seizure-patient unsure ibuprofen Allergy Mild Stomach Verified 01/17/24 20:02 Upset Review of Systems 2 Review of Systems: Constitutional: No fever, chills, fatigue, night sweats, weight changes ENT/Mouth: No ear pain, hearing loss, nasal congestion, sinus pain, rhinorrhea, sore throat Eyes: No eye pain, swelling, redness, vision changes, discharge Cardio: No chest pain, palpitations, OLSEN, orthopnea, peripheral edema Pulm: No SOB, cough, sputum, wheezing, dyspnea, hemoptysis GI: No nausea, vomiting, hematemesis, abdominal pain, diarrhea, constipation, hematochezia, melena : No irregular bleeding, dysuria, frequency, urgency, hesitancy, hematuria, flank pain, urinary flow changes, urinary incontinence or retention MSK: No back pain, neck pain, joint pain, myalgias Skin: No lesions, rashes Neuro: No weakness, numbness, paresthesias, LOC, dizziness, headache Psych: No anxiety/panic, depression, SI/HI, AH/VH All other systems reviewed and are negative. [facility] Past Medical History Attestation statement: The following information was validated with the patient. Source: old records reviewed and nursing notes reviewed Medical History Chest pain Back pain Lumbar degenerative disc disease Panic attacks Anxiety Depression GERD (gastroesophageal reflux disease) Migraines HTN (hypertension) Insomnia Asthma High cholesterol Seizures Diabetes Surgical History History of surgical removal of lesion (~10/19/23) History of back surgery Hx of foot surgery History of esophagogastroduodenoscopy (EGD) H/O colonoscopy H/O eye surgery History of breast biopsy History of back surgery H/O tubal ligation H/O: hysterectomy Family History Family History Mother Diabetes Sister Colon cancer Brother Cirrhosis of liver Throat cancer Maternal Aunt Colon cancer Social History Social History Household Members: Spouse Housing: House Are you a primary child caregiver private home to a significant other at home: No Do you presently have visiting nurse or other home services: No Alcohol intake: current Alcohol intake frequency: does not drink Comment: pt states arm is sore--had previous sx on arm Patient Tobacco Use Status: Former Tobacco user Tobacco use type: Cigarette Years Smoked: 20 Smoked in Last 30 Days: No e-Cigarette/Vaping Use: Never Used Second Hand Smoke Exposure: Yes Use of substances other than those prescribed or required for medical reasons: No Substance Use Type: Marijuana Advance Directives: No Advance Directives Information Provided: No Do you have a plan to hurt others: No Plan Patient : No service: No Current occupational status: retired Cognitive needs: Yes (cane/ walker) Hearing needs: No Vision needs: Yes (glasses) Physical Exam ED Vital Signs: Vital Signs - 24 hr 01/17/24 20:01 01/17/24 21:35 01/17/24 22:11 Temperature 97.6 F 97.7 F Pulse Rate 79 81 Respiratory Rate 16 18 Blood Pressure 138/71 110/46 L Pulse Oximetry 96 99 96 Oxygen Delivery Method Room Air Room Air Room Air 01/18/24 01:01 Temperature 98.0 F Pulse Rate 79 Respiratory Rate 14 Blood Pressure 99/49 L Pulse Oximetry 95 Oxygen Delivery Method Room Air BMI result Body Mass Index 28.7 Vital signs stable General: Well appearing, in no acute distress. Skin: Warm, dry, intact. No rashes or lesions. Head: Normocephalic, atraumatic, no palpable skull fracture or hematoma. no c spine tenderness. from. EENT: Hearing is intact b/l. Conjunctiva clear. PERRLA. EOM intact. Moist mucous membranes.?no tongue laceration. Cardiac: Chest wall symmetric. RRR Lungs: Normal respiratory effort without accessory muscle use. CTA bilaterally Abdomen: Soft, non-tender, non-distended. No rebound tenderness or guarding. Positive BS x4. Back: No midline spinous or paraspinal tenderness. No step off deformity. Ext: Upper and lower extremities atraumatic, without tenderness, deformity, swelling or erythema. Full ROM throughout. no calf tenderness b/l. Neuro: AOx3. Normal speech. Strength 5/5 intact throughout. No saddle anesthesia. Sensation intact to light touch. NV intact distally. normal finger to nose, heel to mazariegos. Ambulating with steady gait. Psych: Appropriate mood and affect. Responds appropriately to questions. Course Course Course Narrative: CBC without leukocytosis or left shift. Normocytic anemia, appears to be around baseline when compared to priors. H&H above transfusion threshold. Chemistry without acute electrolyte abnormality requiring intervention. No BRITTANY. Random glucose 195. Hypoglycemic episode unlikely. Initial troponin undetectable. Will repeat for delta. Liver function at baseline. EKG showing normal sinus rhythm with a rate of 74 beats per minute, QT 416, QTC 461, no acute ischemic changes or ST elevations. Head CT without mass or bleed. she tested negative for covid, flu, rsv. urine without infection. keppra levels pending. > patient given loading dose of Keppra in the ED to increase seizure threshold. She has been observed for 5.5 hours without further seizure activity. Concern for breakthrough she was or. Unclear etiology. Advised to continue Keppra at home. Advised to call neurologist tomorrow morning to schedule an appointment. Patient has remained stable throughout ED visit today. Discussed worrisome signs and symptoms and when to return to the ED. All questions answered at this time. Patient is agreeable with disposition and stable for discharge. Medications Administered Discontinued Medications Generic Name Dose Route Start Last Admin Trade Name Freq PRN Reason Stop Dose Admin Levetiracetam 1,000 mg in 100 mls @ 400 mls/hr 01/17/24 23:32 01/18/24 00:20 Keppra IV 01/17/24 23:46 Infused ONCE ONE Infusion Medical Decision Making Medical Decision Making [facility] Narrative: 63-year-old female with pmhx significant for seizures on Depakote, diabetes, asthma, hypertension, migraines, GERD, depression, anxiety presents to the ED today via EMS from home for evaluation following a witnessed syncopal episode while seated on the couch prior to arrival. Vital signs are stable. she is nontoxic appearing and in NAD. exam is nonfocal. cerebellum intact. perrla. Head is normocephalic, atraumatic. No midline C-spine tenderness or step-off deformity. No tongue laceration. strength 5/5 intact throughout. Differential diagnosis includes anemia, electrolyte abnormality, dehydration, orthostatic hypotension, hypoglycemia, ACS, arrhythmia, brain mass, intracranial hemorrhage Plan for labs, UA, ekg, viral serology, CT head, re-evaluation. Differential Diagnosis Differential Diagnoses: The differential diagnosis associated with the presentation includes As above Admission/Observation Consideration of admission/observation: Escalation of care including admission/observation considered Admission considered on presentation Lab Data [facility] Lab Attestation statement: I reviewed the patient's lab results. as above. 01/17/24 20:15 01/17/24 20:15 Labs: Lab Results 01/17/24 01/18/24 01/18/24 Range/Units 20:15 00:28 00:56 WBC 5.5 (4.8-10.8) X10*3/uL RBC 3.84 L (4.20-5.50) X10*6/uL Hgb 11.3 L (12.0-16.0) g/dl Hct 33.4 L (37.0-47.0) % MCV 87.0 (80.0-98.0) fL MCH 29.4 (27.0-33.0) pg MCHC 33.8 (31.0-35.0) g/dl RDW 12.8 (11.0-16.0) % Plt Count 160 D (160-400) X10*3/uL MPV 11.6 (9.4-12.3) fL Immature Gran % (Auto) 0.2 (0.0-0.4) % Neut % (Auto) 39.3 L (45-73) % Lymph % (Auto) 48.2 H (20-40) % [place] % (Auto) 7.6 (2-11) % Eos % (Auto) 4.0 (0-4) % Baso % (Auto) 0.7 (0-2) % Lymph # (Auto) 2.7 (1.2-4.9) X10*3/uL [place] # (Auto) 0.4 (0.1-1.2) X10*3/uL Eos # (Auto) 0.2 (0.0-0.4) X10*3/uL Baso # (Auto) 0.0 (0.0-0.2) X10*3/uL Abs Immat Gran (auto) 0.01 (0.00-0.03) X10*3/uL Absolute Neuts (auto) 2.2 (2.0-8.3) x10*3/uL Absolute Nucleated RBC 0.000 (0.0-0.012) X10*3/uL Nucleated RBC % (auto) 0.0 (0.0-0.2) /100WBC Sodium 140 (135-145) mmol/L Potassium 3.7 (3.3-5.1) mmol/L Chloride 103 (96-108) mmol/L Carbon Dioxide 22 (22-29) mmol/L Anion Gap 19 (12-20) BUN 20 H (9-16) mg/dL Creatinine 0.95 (0.5-1.4) mg/dL Estim Creat Clear Calc 56.0 Estimated GFR 59 Random Glucose 195 H (60-115) mg/dL Calcium 9.5 (8.4-10.2) mg/dL Total Bilirubin 0.2 (0.0-1.0) mg/dL AST 27 (5-31) U/L ALT 22 (0-31) U/L Alkaline Phosphatase 100 (39-117) U/L Troponin I High Sens < 2.7 < 2.7 (<3.5-17.0) ng/L Total Protein 7.5 (6.5-8.0) g/dL Albumin 4.5 (3.5-5.0) g/dL Urine Color Yellow Urine Appearance Clear Urine pH 5.5 (5.0-9.0) Ur Specific Calvin 1.015 (1.005-1.025) Urine Protein Negative (Neg-Trace) mg/dL Urine Glucose (UA) Negative (Negative) mg/dL Urine Ketones Negative (Negative) mg/dL Urine Blood Negative (Negative) Urine Nitrite Negative (Negative) Ur Leukocyte Esterase Trace H (Negative) Urine RBC 0-2 (0-2) /HPF Urine WBC 0-5 (0-5) /HPF Ur Squamous Epith Cells 0-2 (0-2) /HPF Urine Bacteria None Seen (None Seen) Hyaline Casts 0-2 (0-2) /LPF Influenza Type A (PCR) NEGATIVE (Negative) Influenza Type B (PCR) NEGATIVE (Negative) RSV RNA Qual (PCR) NEGATIVE (Negative) SARS-CoV-2 RNA (RT-PCR) NEGATIVE (Negative) Independent Interpretation I performed an independent interpretation of an: EKG and CT Scan Interpretation: CT head/ brain without bleed or mass EKG showing normal sinus rhythm with a rate of 74 beats per minute, QT 416 QTC 461, no acute ischemic changes or st elevations. Radiology Impression Discussion of test interpretation with radiology: I have reviewed the radiologist's reading. Radiologist Impression: EXAMINATION: CT HEAD WITHOUT CONTRAST CLINICAL INFORMATION: Seizure. Left-sided headache. COMPARISON: None available. TECHNIQUE: Contiguous axial imaging was performed from the skull base to vertex without intravenous administration of contrast. This CT examination was performed using dose optimization techniques as appropriate, variously including the following: *Automated exposure control *Adjustment of mA and/or kV according to patient size (this includes techniques or standardized protocols for targeted exams where dose is matched to indication/reason for exam; i.e. extremities or head) *Use of iterative reconstruction technique DLP: 682 mGy-cm FINDINGS: The lateral, third and fourth ventricles are normally outlined. The cortical sulci and basal cisterns are normally outlined as well. There is mild bilateral periventricular and central white matter diminished attenuation. There is no acute territorial defects, hemorrhage or midline shift. The extra-axial spaces are unremarkable. Calvarium/scalp: Intact. Maxillofacial sinuses and mastoids: Clear as visualized. CT/CT head/brain wo IV con IMPRESSION: 1. No acute intracranial pathology. 2. Mild chronic microangiopathy. Electronically signed by: Srini Schuster MD 01/17/2024 11:13 PM [facility] External Record Review External record reviewed: Inpatient record Chronic Conditions Patient?s care impacted by: Other (seizure disorder) Social Determinants Patient?s care significantly limited by Social Determinants of Health including: Other Social Determinant of Health Critical Care Time Critical Care Time Critical Care Time: No Discharge Plan Discharge Clinical Impression: Seizure Patient Disposition: Home, Self-Care Instructions: Levetiracetam (By mouth), Epilepsy (ED) Additional Instructions: You were evaluated in the ED today following a suspected seizure. Your blood work today is reassuring. Your cardiac enzyme is normal. The EKGs your heart is normal. The CT scan of your head is normal. You tested negative for covid, flu, and RSV. Your urine does not demonstrate infection. I have given you a dose of keppra in ED in hopes of increasing your seizure threshold. You have had no further seizure activity while observed in the ED for 5.5 hours. I advise you to continue your keppra as prescribed. Do not drive or operate heavy machinery. Please follow up with your neurologist. Call them tomorrow to schedule an appointment. Return with new or worsening symptoms. In the case of an emergency call 911. Prescriptions: No Action lijdnvcgoh-zejqwnzylwvrf-gdze 50-325-40 mg tablet 1 tab PO BID PRN (Reason: pain) Qty: 30 0RF gabapentin 100 mg capsule 200 mg PO BID Qty: 60 0RF albuterol sulfate 90 mcg/actuation HFA aerosol inhaler 2 puff inhalation Q6H PRN (Reason: shortness of breath or wheezing) Qty: 6.7 3RF oxycodone 5 mg tablet 5 mg PO Q6H PRN (Reason: pain) Qty: 30 0RF Rx Instructions: Partial Fill upon patient request. oxycodone-acetaminophen [Percocet] 5-325 mg tablet 1 tab PO TID PRN (Reason: pain) Qty: 15 0RF Rx Instructions: Partial Fill upon patient request. zolpidem 10 mg tablet 10 mg PO BEDTIME PRN (Reason: Insomnia) atorvastatin [Lipitor] 40 mg tablet 40 mg PO BEDTIME metformin 500 mg tablet 500 mg PO BEDTIME omeprazole 40 mg capsule,delayed release(DR/EC) 40 mg PO QAM sertraline 25 mg tablet 50 mg PO QPM Rx Instructions: takes at 1200 noon lisinopril-hydrochlorothiazide 10-12.5 mg tablet 1 tab PO QAM cholecalciferol (vitamin D3) 25 mcg (1,000 unit) capsule 25 mcg PO QAM aspirin 81 mg Tablet,Delayed Release (Dr/Ec) 81 mg PO QAM omega 8-qmh-iwi-fish oil [Fish Oil] 1,000 mg (120 mg-180 mg) Capsule 1 cap PO QPM oxycodone-acetaminophen [Percocet] 5-325 mg tablet 1 tab PO Q4-6H PRN (Reason: pain) Qty: 20 0RF Rx Instructions: Partial Fill upon patient request. levetiracetam [Keppra] 250 mg tablet 250 mg PO BID Qty: 60 1RF levetiracetam [Keppra] 1,000 mg tablet 1,000 mg PO BID Qty: 60 1RF vitamin B complex [B Complex-Vitamin B12] Tablet 1 tab PO QAM Referrals: Narinder Gregg MD [Primary Care Provider] - Print Language: Uzbek
--- NOTE | 2024-01-17 22:42 | PC.NURSE ---
pt to CT at this time.
[2024-01-17] MEDS: levETIRAcetam in NaCl (iso-os) 1,000 MG/100 ML PIGGYBACK 400 MG IV (23:59)
[2024-01-18 01:01] VITALS: BP 99/49; PULSE 79; RESP 14; TEMP 36.7; O2SAT 95
[2024-01-18 01:06] LABS: Appearance Urine Clear; Color Urine Yellow; Glucose Urine UA Negative (Negative); Leukocyte Esterase Urine Trace (Negative); Nitrite Urine Negative (Negative); PH 5.5 (5.0-9.0); Specific Gravity - Urine 1.015 (1.005-1.025); UMIC TRIGGER UACC YES; Urine Blood Negative (Negative); Urine Ketones Negative (Negative); Urine Protein Negative (Neg-Trace)
[2024-01-18 01:09] LABS: Bacteria Urine None Seen (None Seen); Hyaline Casts Urine 0-2 /LPF (0-2); RBC Urine 0-2 /HPF (0-2); Squamous Epithelial Cell Urine 0-2 /HPF (0-2); WBC Urine 0-5 /HPF (0-5)
[2024-01-18 01:21] LABS: Troponin-I High Sensitivity < 2.7 ng/L (<3.5-17.0)
[2024-01-18 01:37] VITALS: BP 108/53; PULSE 80; RESP 11; TEMP 36.7; O2SAT 96
[2024-01-18 01:53] VITALS: BP 108/53; PULSE 80; RESP 11; TEMP 36.7; O2SAT 96
[2024-01-20 18:09] LABS: Levetiracetam Keppra 27.8 mcg/mL (6.0-46.0)
== END 2024-01-18 01:54 | disposition home or self-care (01) ==
PROVIDERS: Physician Assistant Medical; Emergency Provider Emergency Medicine; PCP Internal Medicine
DX: G40.909 Epilepsy, unspecified, not intractable, without status epilepticus (principal); Z03.818 Encounter for observation for suspected exposure to other biological agents ruled out; E11.9 Type 2 diabetes mellitus without complications; I10 Essential (primary) hypertension; E78.5 Hyperlipidemia, unspecified; J45.909 Unspecified asthma, uncomplicated; Z79.899 Other long term (current) drug therapy; Z79.02 Long term (current) use of antithrombotics/antiplatelets; Z79.82 Long term (current) use of aspirin; Z79.84 Long term (current) use of oral hypoglycemic drugs; Z87.891 Personal history of nicotine dependence
CPT/HCPCS: 0241U; 36415; 70450; 80053; 80177; 81001; 84484; 85025; 93005; 96365; 99284; 99285; J1953

== ENCOUNTER → 2024-01-17 20:07 | Outpatient (BNV) | payer MEDICARE, OTHER, SELFPAY | PROVIDERS: Emergency Provider Emergency Medicine; PCP Internal Medicine; Visit Provider Internal Medicine | DX: R55 Syncope and collapse (principal) | CPT/HCPCS: 93010 ==

== ENCOUNTER 2024-03-06 10:12 | Outpatient (AMB) | payer MEDICARE, OTHER, SELFPAY ==
--- NOTE | 2024-03-06 10:15 | HO.SPINEOV ---
Intake Visit Reasons: LBP Intake Note: Ms. Langston is here today c/o left shoulder pain that radiates down to the low back. 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 seizure-patient unsure ibuprofen Allergy (Mild, Verified 03/06/24 10:41) Stomach Upset Assessment & Plan Assessment & Plan (1) Cervical radiculopathy: Code(s): M54.12 - Radiculopathy, cervical region Category: Medical Plan HPI: Sydnee is a pleasant 63-year-old female who comes in today for follow-up after having an L3-4 OLIF completed in May of last year. She was doing well directly after surgery, and had some postoperative complications as a result of a fall, but overall was healing good. She was last seen in October for evaluation. Today, she states that her low back pain returned shortly after a bus ride through [place] after flying there for vacation a few weeks ago. In addition to her low back pain with shooting pains down her left lower extremity, she began having severe shooting pains from the left side of her neck down the left ventral surface of her left arm (same inciting incident of a bus ride through [place]). She reports that the pain shooting down her left arm is much more significant than her left lower extremity pain. She denies any numbness/tingling associated with the pain, and reports no issues with dexterity or hand extrusion technician. She has been trying to utilize htkg-xkm-guaghjw medications such as Tylenol, ibuprofen, pain gel/creams without significant relief of symptoms. Thus far stretching/exercise & at home activity has not helped to relieve her pain. Imaging: No new imaging during this visit. Previous head CT completed here at [facility] shows no acute pathology that could be contributing to her symptoms. Exam: The patient has 5/5 strength in her upper and lower extremities. She does elicit pain to knee extension (elicits back pain) and triceps testing (elicits neck pain and creates shooting radiculopathy down left arm). No significant sensational deficits. Reflexes are 2+ intact. (-) Greene's, (-) clonus, (-) bilateral straight leg raise. Plan: Sydnee is a pleasant 63-year-old female coming in today for a subsequent follow-up after having an L3-4 OLIF completed by our service in May of last year. She was doing well in the immediate postoperative period in during subsequent follow-ups despite a fall complicating some of her healing. Today, she reports new onset left-sided neck pain shooting down her left upper extremity, and recurrence of left lower extremity shooting radiculopathy. She is very concerned about her left arm and less concerned about her left leg. She was requesting that we try and work her up for her left arm issue at this time. I believe this is reasonable and it sounds like she has a fairly classic cervical radiculopathy likely secondary to nerve root impingement in the cervical spine. I will order her a MRI of the cervical spine and follow up with her thereafter. Linden Mahajan MD,PhD [facility] Medications: New gabapentin 100 mg PO TID 30 caps 1RF Discontinued gabapentin Discontinued Reason: Doctor's Order 200 mg (2 x 100 mg) PO BID 60 caps 0RF Coding Level of Care Code Est Pt Level 3 (50822) Diagnoses Cervical radiculopathy M54.12
== END 2024-03-06 10:54 | disposition home or self-care (01) ==
PROVIDERS: PCP Internal Medicine; Visit Provider Physician Assistant
DX: M54.12 Radiculopathy, cervical region (principal)
CPT/HCPCS: 99213

== ENCOUNTER → 2024-03-06 10:12 | Outpatient (BNVA) | payer MEDICARE, OTHER, SELFPAY | PROVIDERS: PCP Internal Medicine; Visit Provider Physician Assistant | DX: M54.12 Radiculopathy, cervical region (principal) | CPT/HCPCS: 99212 ==

== ENCOUNTER 2024-03-15 18:42 | Outpatient (REF) | payer MEDICARE, OTHER, SELFPAY ==
--- NOTE | ~2024-03-15 | MR_ITS ---
EXAMINATION: MR CERVICAL SPINE WITHOUT IV CONTRAST History: M54.12 - Radiculopathy, cervical region Technique: Sagittal T1, T2 and STIR, bilateral sagittal oblique T2, and axial T1, T2 and gradient echo images of the cervical spine were obtained per departmental protocol. Comparison: Comparison is made with the prior examination dated 04/17/2023. Findings: The vertebral bodies maintain normal height and marrow signal intensity. There is straightening of the normal cervical lordosis. Again seen is slight anterolisthesis of C2 on C3, C3 and C4, C4 on C5, and C5 on C6. There is mild degenerative disc disease with disc desiccation and loss of disc height. At C2-3, there is no evidence of disc herniation, central spinal stenosis, or neural foraminal narrowing. At C3-4, there is a posterior disc/osteophyte complex which is asymmetric to the left. There is resultant left neural foraminal stenosis. No central spinal or right neural foraminal narrowing. At C4-5, there is right uncovertebral joint hypertrophy causing neural foraminal stenosis. The left neural foramen is patent. There is no central spinal stenosis. At C5-6, there is a diffuse mild disc bulge. There is facet and uncovertebral joint hypertrophy on the left causing neural foraminal stenosis. The right neural foramen is patent. There is no central spinal stenosis. At C6-7, there is no evidence of disc herniation, central spinal stenosis, or neural foraminal narrowing. At C7-T1, there is no evidence of disc herniation, central spinal stenosis, or neural foraminal narrowing. The spinal cord demonstrates normal signal intensity. The visualized paraspinal soft tissues are unremarkable. MR/MR cervical spine wo con Impression: Straightening of the normal cervical lordosis. Degenerative changes as described. Electronically signed by: Aneesh Aviles MD 03/17/2024 11:35 AM EST
== END 2024-03-15 18:43 | disposition home or self-care (01) ==
LOC: HO.MRI 18:42
PROVIDERS: Visit Provider Physician Assistant
DX: M54.12 Radiculopathy, cervical region (principal)
CPT/HCPCS: 72141

== ENCOUNTER → 2024-03-15 18:59 | Outpatient (BNV) | payer MEDICARE, OTHER, SELFPAY | PROVIDERS: Visit Provider Radiology Diagnostic Radiology | DX: M50.10 Cervical disc disorder with radiculopathy, unspecified cervical region (principal) | CPT/HCPCS: 72141 ==

== ENCOUNTER 2024-03-24 09:53 | Outpatient (AMB) | payer MEDICARE, OTHER, SELFPAY ==
--- NOTE | 2024-03-24 09:55 | A.SPINEOV_ITS ---
Intake Visit Reasons: mri f/u Intake Note: Ms. Langston is here today to F/u one the results to her MRI. 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 seizure-patient unsure ibuprofen Allergy (Mild, Verified 03/24/24 09:58) Stomach Upset Assessment & Plan Assessment & Plan (1) Left shoulder pain: Code(s): M25.512 - Pain in left shoulder Category: Medical Plan Sydnee is a pleasant 63-year-old female who comes in today for another follow- up regarding her left upper extremty pain. She is s/p L3-4 OLIF completed in May of last year. She was doing well directly after surgery, and had some postoperative complications as a result of a fall, but overall was healing good. When she followed up in the office she reported significant pain in her left shoulder / arm, prompting us to obtain a cervical MRI to rule out cervical radiculopathy. She reports continuation of the pain in her left shoulder and left arm since our last visit. She completed her MRI, which we reviewed today. Her MRI imaging of the cervical spine does not appear to show a left sided impingement that could be contributing to her symptoms. Importantly, Sydnee does report that she had unspecified left shoulder surgery in the past. It was not a rotator cuff repair, and it was a more minor surgery per her report. I would like to refer Sydnee to our colleagues in Orthopedics for evaluation of her left shoulder / arm pain. I believe the symptoms she is having may be linked to this, as we are unable to identify any neurological cause of her left arm pain. Linden Mahajan MD,PhD [facility] Orders: Referrals Orthopedics Referral M25.512 - Pain in left shoulder Coding Level of Care Code Est Pt Level 2 (69930) Diagnoses Left shoulder pain M25.512
== END 2024-03-24 10:18 | disposition home or self-care (01) ==
PROVIDERS: Visit Provider Physician Assistant
DX: M25.512 Pain in left shoulder (principal)
CPT/HCPCS: 99212

== ENCOUNTER → 2024-03-24 09:53 | Outpatient (BNVA) | payer MEDICARE, OTHER, SELFPAY | PROVIDERS: Visit Provider Physician Assistant | DX: M25.512 Pain in left shoulder (principal) | CPT/HCPCS: 99212 ==

== ENCOUNTER 2024-04-29 09:26 | Outpatient (AMB) | payer MEDICARE, OTHER, SELFPAY ==
--- NOTE | 2024-04-29 10:15 | MHC.OFFVIS ---
Vital Signs 04/29/24 10:22 Height 5 ft 2 in Weight 160 lb BMI 29.3 Handedness Right Intake Visit Reasons: New Prob - left shoulder pain Intake Note: Sydnee is a 63 year old right hand dominant female who presents today for a evaluation of her left shoulder pain. Hx of injury which lead her to have a small surgery on the left shoulder back in 2003. No hx of previous treatment. Patient reports ongoing pain for a couple of years. She mentions that her pain is on the posterior aspect of the shoulder and it sometimes radiates up to her neck. Patient feels her pain wore when she is doing overhead activities and reach her back. She has tried and failed NSAIDs and Tylenol. Allergies topiramate [Topamax] Allergy (Intermediate, Verified 04/29/24 10:21) ? seizure-patient unsure ibuprofen Allergy (Mild, Verified 04/29/24 10:21) Stomach Upset HPI HPI New Prob - left shoulder pain: Details: Ms. Langston is a 63-year-old right-hand dominant female who presents to the office today for evaluation of left shoulder pain. She reports that she has had pain for several years. She did have an injury in 2003 which led her to have surgery but she is unsure what the procedure was at that time. She reports that the majority of her pain is on the posterior aspect of the shoulder and radiates up to her neck. Her pain is worse with overhead activities and reaching behind her back. [facility] Medical History Chest pain Back pain Lumbar degenerative disc disease Panic attacks Anxiety Depression GERD (gastroesophageal reflux disease) Migraines HTN (hypertension) Insomnia Asthma High cholesterol Seizures Diabetes Surgical History History of surgical removal of lesion (~10/19/23) History of back surgery Hx of foot surgery History of esophagogastroduodenoscopy (EGD) H/O colonoscopy H/O eye surgery History of breast biopsy History of back surgery H/O tubal ligation H/O: hysterectomy Family History Mother Diabetes Sister Colon cancer Brother Cirrhosis of liver Throat cancer Maternal Aunt Colon cancer Social History Household Members: Spouse Housing: House Are you a primary child care associate teacher to a significant other at home: No Do you presently have visiting nurse or other home services: No Alcohol intake: current Alcohol intake frequency: does not drink Comment: pt states arm is sore--had previous sx on arm Patient Tobacco Use Status: Former Tobacco user Tobacco use type: Cigarette Years Smoked: 20 e-Cigarette/Vaping Use: Never Used Second Hand Smoke Exposure: Yes Substance Use Type: Marijuana service: No Current occupational status: retired Cognitive needs: Yes (cane/ walker) Hearing needs: No Vision needs: Yes (glasses) Review of Systems Const All systems reviewed & are unremarkable except as noted in HPI and below Physical Exam Vital Signs: BMI result Body Mass Index 29.3 Const General: cooperative, healthy appearing and no acute distress Resp Effort & Inspection: normal respiratory effort and able to speak in complete sentences Cardio Rate: regular rate Peripheral pulses: Peripheral pulses 2+ throughout Skin Lesions: no lesions Rashes: no rashes Extrem Other: Left shoulder: Normal to inspection. No ecchymosis, erythema, or edema. Lacking 20 degrees of forward flexion and abduction. Positive cross-body reach. 3/5 strength with empty can. Negative drop arm. NVI. Office Procedures AMB Joint Injection/Aspiration Joint Injection/Aspiration Primary Site: left shoulder Prep: site was prepped using aseptic technique, ethochloride spray was applied and injection warnings given Injected: 40 mg of, DepoMedrol, with 8 mL of (2% plain lidocaine) and in the subcromial space Approach Used: posterolateral Procedure: The patient tolerated the procedure well, but had some pain with the injection and there was some relief with the local anesthesia Coding 69232 - Large joint Procedure code (CPT) selection complete Assessment & Plan Assessment & Plan (1) Arthritis of left glenohumeral joint: Code(s): M19.012 - Primary osteoarthritis, left shoulder Category: Medical (2) Diabetes: Comment: dx ~ age 58-FBS usually [id number] metformin Code(s): E11.9 - Type 2 diabetes mellitus without complications Category: Medical Plan Ms. Langston is a 63-year-old right-hand dominant female who presents to the office today for evaluation of left shoulder pain. She reports that she has had pain for several years. She did have an injury in 2003 which led her to have surgery but she is unsure what the procedure was at that time. She reports that the majority of her pain is on the posterior aspect of the shoulder and radiates up to her neck. Her pain is worse with overhead activities and reaching behind her back. The patient was offered a cortisone injection in the left shoulder with 40 mg of DepoMedrol. The patient was explained the risks, benefits, and alternatives to receiving this injection. After receiving consent for the injection, the patient had the procedure done while in the office today. The patient tolerated the procedure well with no complications. Due to the patient?s history of diabetes, they were instructed to monitor their blood glucose level. The patient was informed that they could see a rise in their numbers and if the numbers became too high, they were instructed to call their PCP. The patient was also informed that they could have facial flushing as a side effect of the injection, but this will pass. On the office today, we also discussed the role of physical therapy however the patient would like to defer at this time. She will try the subacromial injection and should this not provide her relief the next step would be to schedule an intra-articular joint injection at the hospital under imaging guidance. Follow-up will be p.r.n., or sooner if needed X-rays of the left shoulder which were obtained while in the office today and were reviewed by me, Whitley Stubbs PA-C, revealed glenohumeral joint osteoarthritis. Orders: Orders XR shoulder LT min 2V Today M25.519 - Pain in unspecified shoulder Coding Level of Care Code New Pt Level 4 (99829) Diagnoses Arthritis of left glenohumeral joint M19.012 Diabetes E11.9 CPT Codes Coding - 91266 Large joint: 16247 - Large joint ([id number])
[2024-04-29 10:22] VITALS: BMI 29.3
--- OUTSIDE RECORDS SUMMARY | 2024-04-29 10:36 | XMS_ITS | Patient Health Record ---
Author Organization [facility] Address [address] [place] [id number] Care Team Providers Care Rim Buster Name Role Phone Narinder Gregg MD Primary Care Provider Aneesh Cardoza Unavailable [phone] Allergies No Known Allergies Reason For Referral No Information Medications Medication SIG (Take, Route, Frequency, Duration) Notes [...] Famotidine 20 mg 1 BID Act peggy Nksvldodqg-GHKQ-Pklvtpni 50-325-40 MG Oral for 30 Active Lisinopril Active Gabapentin 100 MG Oral for 30 Active Methocarbamol 500 MG 1.5 tablets Orally every 4 hrs for 30 day(s) Active Lipitor 40 MG 1 tablet Orally Once a day for 30 day(s) Active Fish Oil Active Cerovite Senior Acti ve Immunizations Vaccine Route Administration Date Status Comme nts Influenza Unknown 01/11/2021 Administered Social History Tobacco Use: Social History Observation Description Date Details (start date - stop date) Never Smoker NA - NA Tobacco Use/Smoking Question Answer Notes Patient is a nonsmoker Section Notes: Smoker; no alcohol Denies any significant alcoh ol Problems Problem Type SNOMED Code ICD Code Onset Dates Problem Status W/U Status Risk Notes Problem 155641112 Encounter for screening for malignant neoplasm of colon (Z12.11) Active confirmed Problem 773531979 Gastroesophageal reflux disease without esophagitis (K21.9) Active confirmed Problem 963122969231662 Preprocedural examination (Z01.818) Active confirmed Problem 496453477535990 Aspirin long-ter m use (Z79.82) Active confirmed Problem Diverticulosis of colon (419458541) Diverticulosis of colon (K57.30) Active confirmed Plan Of Treatment Future Test Test Name Order Date UPPER GI ENDOSCOPY 05/22/2012 COLONOSCOPY 06/01/2021 Insurance Providers Payer Name Payer Address Payer Phone Subscriber Number Group Number Insured Name Patient Relationship to Insured Coverage Start Date Coverage End Date MED[place]ARE OF [place] [address] [place] [address] [phone] [id number] EMI MAYERS Self - patient is the insured [facility] [employer] [address] [place] [address] [id number] EMI MAYERS Self - patient is the insured Medical (General) History Medical History History ICD Code Colonoscopy in 01/2008-neg. for polyps; mild sigmoid diverticulosis and internal hemorrhoids GERD-normal EGD 2012 except small HH HTN Hyperlipidemia Seizure disorder Asthma Denies [place],CVA,renal disease Back pain NIDDM Surgical History Surgery Date(Month/Year) Shoulder surgery Back surgery-lower back Elbow surgery Foot surgery [facility]
== END 2024-04-29 10:55 | disposition home or self-care (01) ==
LOC: HO.HOS 09:27
PROVIDERS: Visit Provider Physician Assistant
DX: M19.012 Primary osteoarthritis, left shoulder (principal); E11.9 Type 2 diabetes mellitus without complications
CPT/HCPCS: 20610; 99214

== ENCOUNTER → 2024-04-29 09:43 | Outpatient (BNV) | payer MEDICARE, OTHER, SELFPAY | PROVIDERS: Visit Provider Radiology Diagnostic Radiology | DX: M19.012 Primary osteoarthritis, left shoulder (principal) | CPT/HCPCS: 73030 ==

== ENCOUNTER 2024-04-29 12:17 | Outpatient (REF) | payer MEDICARE, OTHER, SELFPAY ==
--- NOTE | ~2024-04-29 | XR_ITS ---
EXAMINATION: XR SHOULDER 2 OR MORE VIEWS LEFT HISTORY: M25.519 - Pain in unspecified shoulder COMPARISON: Comparison is made with the prior examination dated 06/10/2021. FINDINGS: Three views of the left shoulder are submitted. Osseous mineralization is normal. There is no fracture or dislocation. There is severe osteoarthritis of the glenohumeral joint with joint space narrowing and osteophyte formation. The AC joint is maintained. The soft tissues are unremarkable. XR/XR shoulder LT min 2V IMPRESSION: Severe osteoarthritis of the glenohumeral joint. Electronically signed by: Aneesh Aviles MD 04/29/2024 02:15 PM EDT Workstation:
--- OUTSIDE RECORDS SUMMARY | 2024-04-30 14:20 | XMS_ITS | Patient Health Record ---
Author Organization [facility] Address [address] [place] [id number] Care Team Providers Care Lumber Material Handler Name Role Phone Narinder Gregg MD Primary Care Provider Aneesh Cardoza Unavailable [phone] Allergies No Known Allergies Reason For Referral [...] Famotidine 20 mg 1 BID Act peggy Aaqpudbqbr-MUWW-Rzttbork 50-325-40 MG Oral for 30 Active Lisinopril [...] Problem Status W/U Status Risk Notes Problem 023929267 Encounter for screening for malignant neoplasm of colon (Z12.11) Active confirmed Problem 666853715 Gastroesophageal reflux disease without esophagitis (K21.9) Active confirmed Problem 880544117850014 Preprocedural examination (Z01.818) Active confirmed Problem 976781725314941 Aspirin long-ter m use (Z79.82) Active confirmed Problem Diverticulosis of colon (698752602) Diverticulosis of colon (K57.30) Active confirmed Plan Of Treatment Future Test Test Name Order Date UPPER GI ENDOSCOPY 05/22/2012 COLONOSCOPY 06/01/2021 Insurance Providers Payer Name Payer Address Payer Phone Subscriber Number Group Number Insured Name Patient Relationship to Insured Coverage Start Date Coverage End Date MED[place]ARE OF [place] [address] [place] [address] [phone] [id number] EMI MAYERS Self - patient is the insured [facility] [employer] [address] [place] [address] [id number] EMI MAYERS Self - patient is the insured Medical (General) History Medical History History ICD Code Colonoscopy in 01/2008-neg. for polyps; mild sigmoid diverticulosis and internal hemorrhoids GERD-normal EGD 2012 except small HH HTN Hyperlipidemia Seizure disorder Asthma Denies [place],CVA,renal disease Back pain NIDDM Surgical History Surgery Date(Month/Year) Shoulder surgery Back surgery-lower back Elbow surgery Foot surgery [facility]
== END 2024-04-29 12:18 | disposition home or self-care (01) ==
LOC: HO.HOSX 12:17
PROVIDERS: Visit Provider Physician Assistant
DX: M25.512 Pain in left shoulder (principal); M19.012 Primary osteoarthritis, left shoulder; E11.9 Type 2 diabetes mellitus without complications
CPT/HCPCS: 20610; 73030; 99212; J1010; J2003

== ENCOUNTER 2024-05-05 10:31 | Outpatient (AMB) | payer MEDICARE, OTHER, SELFPAY ==
--- NOTE | 2024-05-05 11:09 | MHC.OFFVIS ---
Vital Signs 05/05/24 11:16 Height 5 ft 2 in Weight 157 lb 2 oz BMI 28.7 BP 132/62 Blood Pressure Location Lt brachial Position Sitting Pulse 81 Intake Visit Reasons: 6 month follow-up AIN III Intake Note: This patient presents for 6 month follow-up AIN III, anoscopy. Pt c/o; denies any concerns or changes Still Operator Brandy Required: No Accompanied by: Self / Same As Patient Allergies topiramate [Topamax] Allergy (Intermediate, Verified 05/05/24 11:15) ? seizure-patient unsure ibuprofen Allergy (Mild, Verified 05/05/24 11:15) Stomach Upset Medication List - Last Reconciled 05/05/24 by Narinder Larson MD albuterol sulfate 90 mcg/actuation 2 puffs inhalation Q6H PRN aspirin 81 mg PO QAM atorvastatin (Lipitor) 40 mg PO BEDTIME lhhwrbahis-tnjlzdxsedgar-qgrn 50-325-40 mg 1 tab PO BID PRN cholecalciferol (vitamin D3) 25 mcg PO QAM gabapentin 100 mg PO TID levetiracetam (Keppra) 1,000 mg PO BID levetiracetam (Keppra) 250 mg PO BID lisinopril-hydrochlorothiazide 10-12.5 mg 1 tab PO QAM metformin 500 mg PO BEDTIME omega 9-exd-vbu-fish oil 1,000 (120-180) mg (Fish Oil) 1 cap PO QPM omeprazole 40 mg PO QAM oxycodone 5 mg PO Q6H PRN oxycodone-acetaminophen 5-325 mg (Percocet) 1 tab PO Q4-6H PRN oxycodone-acetaminophen 5-325 mg (Percocet) 1 tab PO TID PRN sertraline 50 mg PO QPM vitamin B complex (B Complex-Vitamin B12 tablet) 1 tab PO QAM zolpidem 10 mg PO BEDTIME PRN HPI HPI 6 month follow-up AIN III: Details: She is here for a follow-up exam. She had excision of perianal lesion in September,. 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 She denies any bleeding, discomfort or any pain in the anal area. [facility] Medical History Chest pain Back pain Lumbar degenerative disc disease Panic attacks Anxiety Depression GERD (gastroesophageal reflux disease) Migraines HTN (hypertension) Insomnia Asthma High cholesterol Seizures Diabetes Surgical History History of surgical removal of lesion (~10/19/23) History of back surgery Hx of foot surgery History of esophagogastroduodenoscopy (EGD) H/O colonoscopy H/O eye surgery History of breast biopsy History of back surgery H/O tubal ligation H/O: hysterectomy Family History Mother Diabetes Sister Colon cancer Brother Cirrhosis of liver Throat cancer Maternal Aunt Colon cancer Social History Household Members: Spouse Housing: House Are you a primary patient care specialist to a significant other at home: No Do you presently have visiting nurse or other home services: No Alcohol intake: current Alcohol intake frequency: does not drink Comment: pt states arm is sore--had previous sx on arm Patient Tobacco Use Status: Former Tobacco user Tobacco use type: Cigarette Years Smoked: 20 e-Cigarette/Vaping Use: Never Used Second Hand Smoke Exposure: Yes Substance Use Type: Marijuana service: No Current occupational status: retired Cognitive needs: Yes (cane/ walker) Hearing needs: No Vision needs: Yes (glasses) Review of Systems Const Denies chills and Denies fever(s) Card Denies chest pain, Denies dyspnea and Denies dyspnea on exertion Resp Denies cough, Denies dyspnea and Denies dyspnea on exertion GI Denies hematochezia and Denies change in bowel habits Denies hematuria Musc Denies back pain and Denies limited range of motion Neuro Denies focal weakness and Denies convulsions Psych Denies depression and Denies mood swings Physical Exam Vital Signs: Last Vital Signs Pulse 81 05/05/24 11:16 BP 132/62 05/05/24 11:16 BMI result Body Mass Index 28.7 Const General: comfortable and no acute distress Resp Effort & Inspection: normal respiratory effort Cardio Rate: regular rate GI Other: Rectal exam shows no perianal lesions, no ulceration, no fissure or skin changes Palpation (GI): Soft to palpation and not firm Office Procedures Anoscopy She was in darlene-knife position. The anoscope was gently inserted. A full examination of the anal canal was done. I did not see any lesions. There was no abnormal looking anal canal lining. There was no fissure. There was no ulceration. There was no induration on digital exam. 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 Current exam including anoscopy does not suggest any recurrent lesion or any new lesion at all I advised her to follow up again in about 6 months and we will repeat the anoscopy. She understands the plan. Coding Level of Care Code Est Pt Level 3 (23198) Diagnoses AIN grade III D01.3 CPT Codes Details - CPT: 94015-Nwogqncd ([id number])
[2024-05-05 11:16] VITALS: BP 132/62; PULSE 81; BMI 28.7
== END 2024-05-05 11:24 | disposition home or self-care (01) ==
LOC: HO.HGS 10:32
PROVIDERS: Visit Provider Surgery
DX: D01.3 Carcinoma in situ of anus and anal canal (principal)
CPT/HCPCS: 46600; 99213

== ENCOUNTER → 2024-05-05 10:31 | Outpatient (BNVA) | payer MEDICARE, OTHER, SELFPAY | PROVIDERS: Visit Provider Surgery | DX: D01.3 Carcinoma in situ of anus and anal canal (principal) | CPT/HCPCS: 46600; 99212 ==

== ENCOUNTER 2024-06-17 09:36 | Outpatient (REF) | payer MEDICARE, OTHER, SELFPAY ==
--- OUTSIDE RECORDS SUMMARY | 2024-06-17 10:37 | XMS_ITS | Clinical Summary ---
Author Organization [address] [facility] Address [address] [place] [address] Phone Care Team Providers Care Civil Litigation Attorney Name Role Phone Unavailable Primary Care Provider Unavailabl e Social History Tobacco Use Types Packs/Day Years Used Date Smoking Tobacco: Never Assessed Comments Unknown Sex and Gender Information Value Date Recorded Sex Assigned at Not on file Legal Sex Female 1:39 PM EDT Gender Identity Female 06/13/2024 1:46 PM EDT Sexual Orientation Not on file Plan of Treatment Upcoming Encounters Date Type Department Care Team ([facility] st Contact Info) Description 07/01/2024 9:15 AM EDT Consult General Surgery - [place] [address] [address] Devi Russell MD [address] [id number] Health Maintenance Due Date Last Done Comments Breast Cancer Screening 1960 DTaP,Tdap,and Td Vaccines (1 - Tdap) 09/28/1979 Cervical Cancer Screening: P ap Smear 1981 Pneumococcal Vaccine: 50+ Ye ars (1 of 1 - PCV) 2010 Zoster Vaccines (1 of 2) 2010 COVID-19 Vaccine ( - 2023-2 5 season) 2023 Colorectal Cancer Screening: Colonoscopy 06/14/2024 Depression Screening 06/14/2024 HIV Screening 06/14/2024 Hepatitis C Screening 06/14/2024 Medicare Annual Wellness Visit 06/14/2024 Social Influencers of Health Screening 06/14/2024 Influenza Vaccine (Season Ended) 2024 RSV Immunization Adult Patie nts (1 - 1-dose 75+ series) 09/28/2035 HIB Vaccines Aged Out No longer eligi ble based on patient's age to complete this topic HPV Vaccines Aged Out No longer eligi ble based on patient's age to complete this topic Hepatitis A Vaccines Aged Out No long er eligible based on patient's age to complete this topic Hepatitis B Vaccines Aged Out No long er eligible based on patient's age to complete this topic IPV Vaccines Aged Out No longer eligi ble based on patient's age to complete this topic MMR Vaccines Aged Out No longer eligi ble based on patient's age to complete this topic Meningococcal ACWY Vaccine Aged Out N o longer eligible based on patient's age to complete this topic Meningococcal B Vaccine Aged Out No l onger eligible based on patient's age to complete this topic Pneumococcal Vaccine: Pediat rics (0 to 5 Years) and At-Risk Patients (6 to 64 Years) Aged Out No longer eligible b ased on patient's age to complete this topic RSV Immunization Patients Un gavin 20 months Aged Out No longer eligible b ased on patient's age to complete this topic Varicella Vaccines Aged Out No longer eligible based on patient's age to complete this topic Insurance MEDICARE
== END 2024-06-17 09:37 | disposition home or self-care (01) ==
LOC: HO.MAMMO 09:36
PROVIDERS: PCP Internal Medicine; Visit Provider Internal Medicine
DX: Z12.31 Encounter for screening mammogram for malignant neoplasm of breast (principal)
CPT/HCPCS: 77063; 77067

== ENCOUNTER → 2024-06-17 10:00 | Outpatient (BNV) | payer MEDICARE, OTHER, SELFPAY | PROVIDERS: PCP Internal Medicine; Visit Provider Internal Medicine | DX: Z12.31 Encounter for screening mammogram for malignant neoplasm of breast (principal) | CPT/HCPCS: 77063; 77067 ==

== ENCOUNTER 2024-07-09 08:53 | Outpatient (AMB) | payer MEDICARE, OTHER, SELFPAY ==
--- NOTE | 2024-07-09 09:00 | A.OFFPC_ITS ---
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 seizure-patient unsure ibuprofen Allergy (Mild, Verified 07/09/24 09:00) Stomach Upset Tobacco use date assessed: 09/01/22 Dental Screening Dental Screen Date: 11/13/22 HPI HPI Comments History of Present Illness Details eduardokell hillzulma december er 2 episodes thanksgiving. vanessa- july upcoming, saw eyes backwards fainted pain L shoulder june 18 dr claudio - went well. waking up hip pain, bone pain. colon cancer, 150/66 PFSH Medical History (Updated 07/09/24 @ 09:53 by MAYKEL Holm) Cataract associated with type 2 diabetes mellitus Chest pain Back pain Lumbar degenerative disc disease Panic attacks Anxiety Depression GERD (gastroesophageal reflux disease) Migraines HTN (hypertension) Insomnia Asthma High cholesterol Seizures Diabetes Surgical History (Updated 07/07/24 @ 16:57 by Tammi Harding) History of surgical removal of lesion (~10/19/23) History of back surgery Hx of foot surgery History of esophagogastroduodenoscopy (EGD) H/O colonoscopy (~06/27/21) H/O eye surgery History of breast biopsy History of back surgery H/O tubal ligation H/O: hysterectomy Family History Mother Diabetes Sister Colon cancer Brother Cirrhosis of liver Throat cancer Maternal Aunt Colon cancer Social History Household Members: Spouse Housing: House Are you a primary cna caregiver to a significant other at home: No Do you presently have visiting nurse or other home services: No Alcohol intake: current Alcohol intake frequency: does not drink Comment: pt states arm is sore--had previous sx on arm Patient Tobacco Use Status: Former Tobacco user Tobacco use type: Cigarette Years Smoked: 20 e-Cigarette/Vaping Use: Never Used Second Hand Smoke Exposure: Yes Substance Use Type: Marijuana service: No Current occupational status: retired Cognitive needs: Yes (cane/ walker) Hearing needs: No Vision needs: Yes (glasses) Questionnaire Thrive Questionnaire Date Thrive assessed: 06/20/23 KANWAL-7 AMB Questionnaire KANWAL-7 Date KANWAL - 7 assessed: 09/01/22 Source: Developed by Drs. Aneesh Lomax, Selma Pedroza, Salvador Aparicio and colleagues, with an educational dheeraj from [employer]. Physical exam (Primary Care) Vital Signs: Last Vital Signs Temp 97.9 F 07/09/24 09:06 Pulse 55 07/09/24 09:06 Resp 16 07/09/24 09:06 BP 150/66 H 07/09/24 09:28 Pulse Ox 98 07/09/24 09:06 Oxygen Delivery Method Room Air 07/09/24 09:06 BMI result Body Mass Index 29.4 Tobacco/Smoking Status: Tobacco use Status Tobacco use date assessed 09/01/22 07/09/24 09:01 Patient Tobacco Use Status Former Tobacco user 07/09/24 09:01 Tobacco use type Cigarette 07/09/24 09:01 e-Cigarette/Vaping Use Never Used 07/09/24 09:01 Thrive Assessment: Date of Thrive Assessment Date Thrive assessed 06/20/23 07/09/24 09:01 Advance Care Planning discussion: Completed/Scanned Date of discussion: 07/09/24 Forms completed: Health Care Proxy and MOLST Time spent: 1-15 minutes, not on file Actual minutes spent: 5 Coding Level of Care Code New Pt Level 4 (33707) Complex EM visit Add On G2211 Diagnoses Seizures R56.9 Hypertension I10 Cataract associated with type 2 diabetes mellitus E11.36 Additional Codes Vital Signs *Quality* - Advance Care Planning discussion: Completed/Scanned ([id number]) Vital Signs *Quality* - Time spent: 1-15 minutes, not on file ([id number]) Assessment & Plan Assessment & Plan (1) Seizures: Comment: controlled with Keppra-last seizure 12/2021 Code(s): R56.9 - Unspecified convulsions Category: Medical Plan: Continue keppra, follow up with neurology (2) Hypertension: Code(s): I10 - Essential (primary) hypertension Category: Medical Plan: Uncontrolled, did not take medication this morning. Follow up with RN for bp check. Compliance with antihypertensives stressed (3) Cataract associated with type 2 diabetes mellitus: Code(s): E11.36 - Type 2 diabetes mellitus with diabetic cataract Category: Medical Plan: s/p removal [place] [facility]. Referral placed for local ophthamology Plan History of Present Illness The patient is a 63-year-old female presenting for chronic disease management and medication review. She reports seizure episodes occurring last December, aligning with a history of non-compliance with her prescribed Keppra for seizure disorder. The episodes include tonic-clonic seizures, which she associates with stress and an incomplete adherence to her medication regimen due to the quantity of pills. The patient underwent shoulder surgery on June 18 and continues to manage postoperative pain in the left shoulder with planned cortisone injections. She also experiences low back pain for which she takes oxycodone, noting that this pain persists following her surgical recovery. In relation to her metabolic health, the patient mentions elevated glucose levels and is exploring alternatives to metformin due to gastrointestinal discomfort. She has elevated blood pressure readings but has not taken her hypertension medication regularly due to timing dietary intake. A review of her family history indicates a concern for bone health, given instances of colorectal cancer within her family, prompting a focused conversation on her bone pain and limited dietary intake of meat. Her latest colonoscopy and mammogram results were unremarkable, and she is not due for a bone density scan at this time but will have her vitamin D levels checked in light of her diffuse bone pain. Review of Systems - Neurological: Reports seizures; Reports compliance with seizure medication (Keppra), but admits non-compliance with vitamin B12 supplements. - Musculoskeletal: Reports postoperative pain in the left shoulder; Reports low back pain. - Endocrine/Metabolic: Reports high blood sugar readings; Reports considering natural alternatives to metformin. - Hematological: Denies recent anemia. - Gastrointestinal: Denies recent changes in bowel habits; Reports family history of colorectal cancer. - General: Reports family history of cancer; Reports feeling tired and diffuse bone pain. Vital Signs - Blood pressure: 150/66 mmHg Health Maintenance - Colonoscopy: Last performed in 2021, 10-year follow-up advised. - Mammogram: Recent results normal, with no evidence of cancer. - Advised vitamin D level check. Physical Exam Constitutional: Awake and alert, no apparent distress Heart: RRR, S1S2, no murmurs, no edema Lungs: CTA bilaterally, no wheezing Extremities: No calf tenderness Skin: Warm and dry Neuro: Alert and oriented x 3, history of seizures, tonic-clonic episodes reported Assessment and Plan 1. Seizure disorder Recent seizures related to medication adherence, now stable. Encourage compliance with prescribed Keppra and continue neurological follow-up. 2. Essential hypertension Uncontrolled related to no medication dosing this morning. Re-assess blood pressure with a nurse appointment. 3. Type 2 diabetes mellitus Blood glucose management emphasized, with consideration of dietary alteration. A1c ordered to monitor status. Will change metformin to ER formulation given adverse GI efforts on IR formulation. 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 Continue annual eye and foot exams 4. Postoperative pain in left shoulder Proceed with cortisone injection, with follow-up orthopedically if required. 5. Low back pain Current management with oxycodone. Discuss future therapy options for chronic pain management. Continue following with the [facility] 6. Possible vitamin D deficiency Vitamin level assessment to address potential deficiency. 7. Compliance and medication review Patient education on consistent medication adherence is reinforced. MOLST and HCP reviewed Patient was informed and verbally consented to the use of an ambient scribe for clinic note documentation during this visit. Discussion Notes During this visit, we addressed the patient's seizure disorder and its relation to medication adherence, hypertension management, and comprehensive evaluation of blood sugar abnormalities with diet in focus. Specific attention was paid to adherence to Keppra, with neurology follow-ups arranged. We discussed benefits of compliance with blood pressure medications, potentially adjusting alternative medication therapies due to the patient's reluctance to take metformin, and encouraged dietary adherence to diabetology. Initiation of a vitamin D level test was discussed to address musculoskeletal discomfort and optimize metabolic bone health. Anticipatory guidance was provided regarding post-operative shoulder pain management with upcoming cortisone injection; comprehension and cooperation on compliance issues were emphasized. Patient Instructions - Continue taking Keppra 1250 mg twice daily for your seizure disorder. - Make sure to take your blood pressure medication daily, even if not eaten. - Monitor your blood sugar levels and follow a low-carbohydrate diet. - Complete the A1c blood test today before eating. - Have your vitamin D levels checked to address bone pain. - Attend your cortisone injection appointment for your shoulder pain. - Follow up in three months for a comprehensive review and visit labs. - Schedule a nurse visit to reassess blood pressure in near future. Orders: Orders Basic Metabolic Panel Today E11.9 - Type 2 diabetes mellitus without complications, E55.9 - Vitamin D deficiency, unspecified, I10 - Essential (primary) hypertension, R56.9 - Unspecified convulsions Complete Blood Count Auto Diff Today E11.9 - Type 2 diabetes mellitus without complications, E55.9 - Vitamin D deficiency, unspecified, I10 - Essential (primary) hypertension, R56.9 - Unspecified convulsions Hemoglobin A1c Today E11.9 - Type 2 diabetes mellitus without complications, E55.9 - Vitamin D deficiency, unspecified, I10 - Essential (primary) hypertension, R56.9 - Unspecified convulsions Lipid Panel Today E11.9 - Type 2 diabetes mellitus without complications, E55.9 - Vitamin D deficiency, unspecified, I10 - Essential (primary) hypertension, R56.9 - Unspecified convulsions Liver Panel Today E11.9 - Type 2 diabetes mellitus without complications, E55.9 - Vitamin D deficiency, unspecified, I10 - Essential (primary) hypertension, R56.9 - Unspecified convulsions TSH reflex Free T4 Today E11.9 - Type 2 diabetes mellitus without complications, E55.9 - Vitamin D deficiency, unspecified, I10 - Essential (primary) hypertension, R56.9 - Unspecified convulsions Vitamin D 25-OH Total Today E11.9 - Type 2 diabetes mellitus without complications, E55.9 - Vitamin D deficiency, unspecified, I10 - Essential (primary) hypertension, R56.9 - Unspecified convulsions Vitamin B12 Today E11.9 - Type 2 diabetes mellitus without complications, E55.9 - Vitamin D deficiency, unspecified, I10 - Essential (primary) hypertension, R56.9 - Unspecified convulsions Hemoglobin A1c 10 Weeks E11.36 - Type 2 diabetes mellitus with diabetic cataract Referrals Ophthalmology Referral E11.36 - Type 2 diabetes mellitus with diabetic cataract
[2024-07-09 09:06] VITALS: BP 144/72; PULSE 55; RESP 16; TEMP 36.6; O2SAT 98; BMI 29.4
[2024-07-09 09:28] VITALS: BP 150/66
--- OUTSIDE RECORDS SUMMARY | 2024-07-09 10:10 | XMS_ITS | Clinical Summary ---
Author Organization 175 [facility] Address [address] [place] [address] Phone Care Team Providers Care Marketing Coordinator Name Role Phone Unavailable Primary Care Provider Unavailabl e Allergies No known active allergies Medications lisinopril-hydro CHLOROthiazide (PRINZIDE,ZESTOR ETIC) 10-12.5 mg per tablet Take 1 tablet by mouth 1 (one) time each day. 5 Active atorvastatin (LIPITOR) 40 mg tablet Take 1 tablet (40 mg total) by mouth 1 (one) time each day. 5 Active albuterol HFA (PROAIR HFA ; PROVENTIL HFA ; VENTOLIN HFA) 90 mcg/actuation inhaler inhale 2 puffs every 6 hours as needed for shortness of breath or wheezing 4 Active Vitamin D3 25 mcg (1,000 unit) capsule Take 1 capsule (1,000 Units total) by mouth 1 (one) time each day. 5 Active estazolam (PROSOM) 2 mg tablet take 1 tablet by mouth every day at bedtime as needed for 30 days 5 Active gabapentin (NEURONTIN) 100 mg capsule Take 2 capsules (200 mg total) by mouth 2 (two) times a day. 5 Active latanoprost (XALATAN) 0.005 % ophthalmic solution INSTILL 1 DROP INTO RIGHT EYE EVERY EVENING 5 Active levETIRAcetam (KEPPRA) 250 mg tablet TAKE 1 TABLET BY MOUTH EVERY 12 HOURS FOR 90 DAYS 5 Active Xiidra 5 % dropperette Administer 1 drop into both eyes 2 (two) times a day. 5 Active metFORMIN (GLUCOPHAGE) 500 mg tablet Take 1 tablet (500 mg total) by mouth 1 (one) time each day. Active omeprazole (PriLOSEC) [address] capsule Take 1 capsule (40 mg total) by mouth 1 (one) time each day. Active aspirin 81 mg EC tablet Take 1 tablet (81 mg total) by mouth 1 (one) time each day. Active Active Problems Problem Noted Date Diagnosed Date Soft tissue mass 07/01/2024 Encounters Date Type Department Care Team Description 07/01/2024 9:15 AM EDT Consult General Surgery [facility] [address] [place] [address] Devi Russell MD Soft tissue mass (Primary Dx); Epidermal inclusion cyst from Last 3 Months Social History Tobacco Use Types Packs/Day Years Used Date Smoking Tobacco: Never Tobacco Cessation:Counseling Given: Not Answered Alcohol Use Standard Drinks/Week Comments Yes 0 (1 standard drink = 0.6 oz pur e alcohol) Comments Unknown Sex and Gender Information Value Date Recorded Sex Assigned at Not on file Legal Sex Female 1:39 PM EDT Gender Identity Female 06/13/2024 1:46 PM EDT Sexual Orientation Not on file Obstetrics History Last Filed Vital Signs Vital Sign Reading Time Taken Comments Blood Pressure 124/74 07/01/2024 8:52 AM EDT Pulse 59 07/01/2024 8:52 AM EDT Temperature 36.1 ??C (96.9 ??F) 07/01/2024 8:52 AM ED T Respiratory Rate - - Oxygen Saturation - - Inhaled Oxygen Concentration - - Weight 75.6 kg (166 lb 9.6 oz) 07/01/2024 8:52 A M EDT Height 157.5 cm (5' 2 ) 07/01/2024 8:52 AM EDT Body Mass Index 30.47 07/01/2024 8:52 AM EDT Plan of Treatment Upcoming Encounters Date Type Department Care Team (Latest Contact Info) Description 08/14/2024 11:00 AM EDT Pre-Admission Testing [facility] Pre-Admission Testing [address] [place] [address] 08/21/2024 7:30 AM EDT Hospital Encounter [facility] Main OR [address] [place] [phone] Devi Russell MD [address] [address] 08/21/2024 7:30 AM EDT - 08/21/2024 9:00 AM EDT Surgery [facility] Main OR [address] [place] [phone] Devi Russell MD [address] [address] EXCISION LESION SOFT TISSUE RIGHT POSTERIOR SHOULDER [54466 (CPT??)] 09/09/2024 10:45 AM EDT Office Visit General Surgery - [place] [address] [phone] Devi Russell MD [address] [address] Scheduled Procedures Name Priority Associated Diagnoses Date/Ti me EXCISION LESION SOFT TISSUE Soft tissue mass 08/21/2024 7:30 AM EDT Health Maintenance Due Date Last Done Comments Breast Cancer Screening 1960 DTaP,Tdap,and Td Vaccines (1 - Tdap) 09/28/1979 Cervical Cancer Screening: Pap Smear 1981 Pneumococcal Vaccine: 50+ Years (1 of 1 - PCV) 2010 Zoster Vaccines (1 of 2) 2010 Colorectal Cancer Screening: Colonoscopy 06/14/2024 Depression Screening 06/14/2024 HIV Screening 06/14/2024 Hepatitis C Screening 06/14/2024 Medicare Annual Wellness Visit 06/14/2024 Social Influencers of Health Screening 06/14/2024 RSV Immunization Adult Patients (1 - 1-dose 75+ series) 09/28/2035 Influenza Vaccine Completed 12/08/2023, , 01/11/2021, Additional history exists COVID-19 Vaccine Completed 12/22/2023, 01/07/2023 HIB Vaccines Aged Out No longer eligi [...] age to complete this topic Pneumococcal Vaccine: Pediatrics (0 to 5 Years) and At-Risk Patients (6 to 64 Years) Aged Out No longer eligible based on patient's age to complete this topic RSV Immunization Patients Under 20 months Aged Out No longer eligible based on patient's age to complete this topic Varicella Vaccines Aged Out No longer eligible based on patient's age to complete this topic Insurance MEDICARE [facility]
== END 2024-07-09 10:15 | disposition home or self-care (01) ==
LOC: HO.HMCHD 08:53
PROVIDERS: Visit Provider Physician Assistant
DX: R56.9 Unspecified convulsions (principal); I10 Essential (primary) hypertension; E11.36 Type 2 diabetes mellitus with diabetic cataract; Z00.00 Encounter for general adult medical examination without abnormal findings

== ENCOUNTER → 2024-07-09 08:53 | Outpatient (BNVA) | payer MEDICARE, OTHER, SELFPAY | PROVIDERS: Visit Provider Physician Assistant | DX: R56.9 Unspecified convulsions (principal); I10 Essential (primary) hypertension; E11.36 Type 2 diabetes mellitus with diabetic cataract; H26.9 Unspecified cataract; M54.50 Low back pain, unspecified; Z79.891 Long term (current) use of opiate analgesic | CPT/HCPCS: 99202 ==

== ENCOUNTER 2024-07-12 10:20 | Outpatient (REF) | payer MEDICARE, OTHER, SELFPAY ==
[2024-07-12 10:34] LABS: MANUAL DIFF FLAG NO
[2024-07-12 11:05] LABS: Basophils Percent Auto 0.5 % (0-2); Eosinophils Absolute Auto 0.3 X10*3/uL (0.0-0.4); Eosinophils Percent Auto 5.2 % (0-4); Hematocrit 38.4 % (37.0-47.0); Hemoglobin 12.9 g/dl (12.0-16.0); Imm Gran Abs Auto 0.01 X10*3/uL (0.00-0.03); Imm Gran Pct Auto 0.2 % (0.0-0.4); Lymphocytes Absolute Auto 2.6 X10*3/uL (1.2-4.9); Lymphocytes Percent Auto 43.2 % (20-40); Mean Corpuscular HGB Conc 33.6 g/dl (31.0-35.0); Mean Corpuscular Hemoglobin 29.2 pg (27.0-33.0); Mean Corpuscular Volume 86.9 fL (80.0-98.0); Mean Platelet Volume 12.1 fL (9.4-12.3); Monocytes Absolute Auto 0.4 X10*3/uL (0.1-1.2); Monocytes Percent Auto 6.9 % (2-11); Neutrophils Absolute Auto 2.6 x10*3/uL (2.0-8.3); Platelet Count 183 X10*3/uL (160-400); Red Blood Count 4.42 X10*6/uL (4.20-5.50); Red Cell Distribution Width 12.6 % (11.0-16.0)
[2024-07-12 11:16] LABS: Estimated Average Glucose 197 mg/dL; Hemoglobin A1C 235.8406 umol/L; Hemoglobin A1c % 8.5 % (<6.0); Total Hemoglobin (HGBA1C) 3395.0968 umol/L
[2024-07-12 11:59] LABS: Alanine Aminotransferase 35 U/L (0-31); Albumin Level 4.8 g/dL (3.5-5.0); Alkaline Phosphatase 106 U/L (39-117); Anion Gap 14 (12-20); Aspartate Amino Transferase 29 U/L (5-31); Bilirubin Direct 0.2 mg/dL (0.0-0.5); Bilirubin Total 0.6 mg/dL (0.0-1.0); Blood Urea Nitrogen 23 mg/dL (9-16); Calcium 9.8 mg/dL (8.4-10.2); Carbon Dioxide 30 mmol/L (22-29); Chloride 101 mmol/L (96-108); Cholesterol 205 mg/dL (<200); Estimated Glomerular Filt Rate > 60; Glucose Random 194 mg/dL (60-115); HDL Cholesterol 51 mg/dL (>40); LDL Cholesterol Calculated 100 mg/dL (<100); Potassium 4.1 mmol/L (3.3-5.1); Sodium 141 mmol/L (135-145); Total Protein 7.9 g/dL (6.5-8.0); Triglycerides 272 mg/dL (<150)
[2024-07-12 12:17] LABS: TSH reflex Free T4 0.76 uIU/mL (0.32-4.0); Vitamin B12 1141 pg/mL (200-900); Vitamin D 25-OH Total 50.9 ng/mL (>30)
== END 2024-07-12 10:21 | disposition home or self-care (01) ==
LOC: HO.LAB 10:20
PROVIDERS: PCP Physician Assistant; Visit Provider Physician Assistant
DX: E55.9 Vitamin D deficiency, unspecified (principal); I10 Essential (primary) hypertension; R56.9 Unspecified convulsions; E11.9 Type 2 diabetes mellitus without complications
CPT/HCPCS: 36415; 80048; 80061; 80076; 82306; 82607; 83036; 84443; 85025

== ENCOUNTER 2024-08-01 08:49 | Outpatient (AMB) | payer MEDICARE, OTHER, SELFPAY ==
--- NOTE | 2024-08-01 08:59 | MHC.OFFVIS ---
Intake Visit Reasons: Inj- left shoulder pain, last inj 04/29/24 Intake Note: Ms. Langston is a 63 yo female who presents to the office today for repeat cortisone injection in the left shoulder. Her last injection was 04/29/24 gave her great relief. Allergies topiramate [Topamax] Allergy (Intermediate, Verified 07/09/24 09:00) ? seizure-patient unsure ibuprofen Allergy (Mild, Verified 07/09/24 09:00) Stomach Upset HPI HPI Inj- left shoulder pain, last inj 04/29/24: Details: Ms. Langston is a 63 yo female who presents to the office today for repeat cortisone injection in the left shoulder. Her last injection was 04/29/24 gave her great relief. [facility] Medical History (Updated 07/09/24 @ 09:53 by MAYKEL Holm) Cataract associated with type 2 diabetes mellitus Chest pain Back pain Lumbar degenerative disc disease Panic attacks Anxiety Depression GERD (gastroesophageal reflux disease) Migraines HTN (hypertension) Insomnia Asthma High cholesterol Seizures Diabetes Surgical History (Updated 07/07/24 @ 16:57 by Tammi Harding) History of surgical removal of lesion (~10/19/23) History of back surgery Hx of foot surgery History of esophagogastroduodenoscopy (EGD) H/O colonoscopy (~06/27/21) H/O eye surgery History of breast biopsy History of back surgery H/O tubal ligation H/O: hysterectomy Family History Mother Diabetes Sister Colon cancer Brother Cirrhosis of liver Throat cancer Maternal Aunt Colon cancer Social History Household Members: Spouse Housing: House Are you a primary care director rn to a significant other at home: No Do you presently have visiting nurse or other home services: No Alcohol intake: current Alcohol intake frequency: does not drink Comment: pt states arm is sore--had previous sx on arm Patient Tobacco Use Status: Former Tobacco user Tobacco use type: Cigarette Years Smoked: 20 e-Cigarette/Vaping Use: Never Used Second Hand Smoke Exposure: Yes Substance Use Type: Marijuana service: No Current occupational status: retired Cognitive needs: Yes (cane/ walker) Hearing needs: No Vision needs: Yes (glasses) Review of Systems Const All systems reviewed & are unremarkable except as noted in HPI and below Physical Exam Const General: cooperative, healthy appearing and no acute distress Resp Effort & Inspection: normal respiratory effort and able to speak in complete sentences Extrem Other: Left shoulder: Normal to inspection. No ecchymosis, erythema, or edema. Lacking 20 degrees of forward flexion and abduction. Positive cross-body reach. 3/5 strength with empty can. Negative drop arm. NVI. Office Procedures AMB Joint Injection/Aspiration Joint Injection/Aspiration Primary Site: left shoulder Prep: site was prepped using aseptic technique, ethochloride spray was applied and injection warnings given Injected: 40 mg of, DepoMedrol, with 8 mL of (2% plain lidocaine) and in the subcromial space Approach Used: posterolateral Procedure: The patient tolerated the procedure well, but had some pain with the injection and there was some relief with the local anesthesia Coding - Large joint Procedure code (CPT) selection complete Assessment & Plan Assessment & Plan (1) Arthritis of left glenohumeral joint: Code(s): M19.012 - Primary osteoarthritis, left shoulder Category: Medical Plan The patient was offered a cortisone injection in the left foramen with 40 mg of DepoMedrol. The patient was explained the risks, benefits, and alternatives to receiving this injection. After receiving consent for the injection, the patient had the procedure done while in the office today. The patient tolerated the procedure well with no complications. Due to the patient?s history of diabetes, they were instructed to monitor their blood glucose level. The patient was informed that they could see a rise in their numbers and if the numbers became too high, they were instructed to call their PCP. The patient was also informed that they could have facial flushing as a side effect of the injection, but this will pass. Follow-up will be PRN, or sooner if needed Coding Level of Care Code Est Pt Level 3 (95739) Diagnoses Arthritis of left glenohumeral joint M19.012 CPT Codes Coding - Large joint: 13510 - Large joint ([id number])
--- OUTSIDE RECORDS SUMMARY | 2024-08-01 09:05 | XMS_ITS | Clinical Summary ---
Author Organization [address] [place] [address] Address [address] [place] [address] Phone Care Team Providers Care Scullion Chief Name Role Phone Unavailable Primary Care Provider [...] both eyes 2 (two) times a day. Active metFORMIN (GLUCOPHAGE) 500 mg tablet Take [...] 9:15 AM EDT Consult General Surgery - [place] [address] [facility] [address] [place] [address] Devi Russell MD Soft tissue [...] Description 08/14/2024 11:00 AM EDT Pre-Admission Testing [facility] Pre-Admission Testing [address] [place] [address] 08/21/2024 7:30 AM EDT Hospital Encounter [facility] Main OR [address] [place] [phone] Devi Russell MD [address] [address] 08/21/2024 7:30 AM EDT - 08/21/2024 9:00 AM EDT Surgery [facility] Main OR [address] [place] [address] Devi Russell MD [address] [address] EXCISION LESION SOFT TISSUE RIGHT POSTERIOR SHOULDER [08211 (CPT??)] 09/09/2024 10:45 AM EDT Office Visit General Surgery - [place] [address] [phone] Devi Russell MD [address] [address] Scheduled Procedures Name Priority Associated Diagnoses Date/Ti [...] age to complete this topic Insurance MEDICARE [facility]
== END 2024-08-01 09:09 | disposition home or self-care (01) ==
LOC: HO.HOS 08:50
PROVIDERS: PCP Internal Medicine; Visit Provider Physician Assistant
DX: M19.012 Primary osteoarthritis, left shoulder (principal); E11.9 Type 2 diabetes mellitus without complications
CPT/HCPCS: 20610; 99213

== ENCOUNTER → 2024-08-01 08:49 | Outpatient (BNVA) | payer MEDICARE, OTHER, SELFPAY | PROVIDERS: PCP Internal Medicine; Visit Provider Physician Assistant | DX: M19.012 Primary osteoarthritis, left shoulder (principal) | CPT/HCPCS: 20610; 99212; J1010; J2003 ==

== ENCOUNTER → 2024-08-07 10:34 | Outpatient (BNVA) | payer MEDICARE, OTHER, SELFPAY | PROVIDERS: PCP Internal Medicine | DX: Z13.89 Encounter for screening for other disorder (principal) ==

== ENCOUNTER 2024-09-03 11:08 | Outpatient (AMB) | payer MEDICARE, OTHER, SELFPAY ==
--- NOTE | 2024-09-03 11:17 | A.OFFVIS_ITS ---
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 seizure-patient unsure ibuprofen Allergy (Mild, Verified 09/03/24 11:22) Stomach Upset Medication List - Last Reconciled 09/03/24 by Sydnie Carver LPN albuterol sulfate 90 mcg/actuation 2 puffs inhalation Q6H PRN aspirin 81 mg PO QAM Held on 06/20/23. Instructions: Resume on 06/23/23. atorvastatin 80 mg PO BEDTIME blood pressure test kit-large As directed ebfryrdymp-lhiwvjzemtsxm-wykf 50-325-40 mg 1 tab PO BID PRN cholecalciferol (vitamin D3) 25 mcg PO QAM gabapentin 100 mg PO TID levetiracetam (Keppra) 1,000 mg PO BID levetiracetam (Keppra) 250 mg PO BID lisinopril-hydrochlorothiazide 20-12.5 mg 1 tab PO DAILY metformin ER 1,000 mg (2 x 500 mg) PO BID omega 2-igj-xem-fish oil 1,000 (120-180) mg (Fish Oil) 1 cap PO QPM omeprazole 40 mg PO QAM oxycodone 5 mg PO Q6H PRN sertraline 50 mg PO QPM zolpidem 10 mg PO BEDTIME PRN Is last menstrual period known: No Post menopausal: Yes (Hysterectomy) Patient : No HPI Comments Details: Patient is a 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 She is doing well with computer applications instructor concerns. Currently sexually active, admits to vaginal dryness, not using any anap-cwd-mlqursw products. Attempting to eat a healthy diet with calcium and vitamin D and stays active with exercise. Last mammogram; 2024. Colonoscopy is UTD. Denies any family history of breast or ovarian cancer. FH colon cancer. [facility] Medical History Cataract associated with type 2 diabetes mellitus Chest pain Back pain Lumbar degenerative disc disease Panic attacks Anxiety Depression GERD (gastroesophageal reflux disease) Migraines HTN (hypertension) Insomnia Asthma High cholesterol Seizures Diabetes Surgical History History of surgical removal of lesion (~10/19/23) History of back surgery Hx of foot surgery History of esophagogastroduodenoscopy (EGD) H/O colonoscopy (~06/27/21) H/O eye surgery History of breast biopsy History of back surgery H/O tubal ligation H/O: hysterectomy Family History Mother Diabetes Sister Colon cancer Brother Cirrhosis of liver Throat cancer Maternal Aunt Colon cancer Social History Household Members: Spouse Housing: House Are you a primary patient care representative to a significant other at home: No Do you presently have visiting nurse or other home services: No Alcohol intake: current Alcohol intake frequency: does not drink Comment: pt states arm is sore--had previous sx on arm Patient Tobacco Use Status: Former Tobacco user Tobacco use type: Cigarette Years Smoked: 20 e-Cigarette/Vaping Use: Never Used Second Hand Smoke Exposure: Yes Substance Use Type: Marijuana service: No Current occupational status: retired Cognitive needs: Yes (cane/ walker) Hearing needs: No Vision needs: Yes (glasses) Female Reproductive History Menstrual Menopause type: surgical (2014 in [place]) Total pregnancies: 3 Full term: 2 Premature: 1 Number of Living Children: 3 Date of last pap smear: 09/03/24 History of abnormal pap smear: No Date of Mammogram: 06/17/24 History of abnormal mammogram: No (pt states i have a pin in my rt. breast.) Review of Systems Const All systems reviewed & are unremarkable except as noted in HPI and below Reports as per HPI Eyes Reports no additional complaints ENT Reports no additional complaints Card Reports no additional complaints Resp Reports no additional complaints GI Reports as per HPI and Reports no additional complaints Reports as per HPI Musc Reports no additional complaints Skin/Breast Reports as per HPI Neuro Reports no additional complaints Psych Reports no additional complaints Endo Reports no additional complaints Blu/Lymph Reports no additional complaints Aller/Immun Reports no additional complaints Physical Exam Vital Signs: Last Vital Signs BP 130/80 09/03/24 11:19 BMI result Body Mass Index 28.2 Const General: cooperative, healthy appearing, no acute distress, well developed and alert Orientation/consciousness: patient oriented x3 HEENT Head: Yes normal to inspection Eyes General: appearance normal, both eyes and all related structures Neck Neck: Yes normal visual inspection Thyroid: Thyroid normal Chest Chest palpation & inspection: normal inspection of the chest and other (no puckering, dimpling, peau de orange, retraction, discharge, masses) Breast/axilla inspection: normal inspection of the breasts Breast/axilla palpation: normal palpation of the breasts Resp Effort & Inspection: normal respiratory effort GI Inspection: Yes normal to inspection Palpation (GI): Soft to palpation Rectal Exam - Female: deferred General: Yes bladder normal to palpation External Female Exam: normal external appearance and normal appearance of the urethra Speculum Exam - Vagina: normal appearance of the vagina, normal palpation, normal vaginal discharge and vagina atrophic Speculum Exam - Cervix: normal appearance of the cervix and Cervix absent (No lesions or nodules) Bimanual exam- vagina & uterus: normal bimanual exam, normal palpation, bladder normal to palpation and uterus absent Bimanual Exam- Adnexa, other: no masses Skin General skin exam: no rashes or lesions noted Rashes: no rashes Neuro General: patient oriented x3 Cognition (Neuro): normal cognition Extrem General: Yes normal to inspection Psych Attitude: cooperative Thought process: Normal thought process present Assessment & Plan Assessment & Plan (1) Well woman exam: Code(s): Z01.419 - Encounter for gynecological examination (general) (routine) without abnormal findings Category: Medical Plan Discussed: Current recommendations for pap smears per ASCCP guidelines. Breast awareness, periodic self breast exams and yearly mammogram. Maintain a healthy lifestyle, well balanced diet including Calcium 1,200 mg and Vitamin D 600 IU daily, and routine exercise. Use of Replens moisturizer and vaginal lubricants. Patient verbalizes understanding and agrees to the plan of care. She was given opportunity to ask questions and all questions were answered to the best of my ability. 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 This note is constructed using voice recognition software. While every effort has been made to ensure accuracy, final touch up painter errors may have been included. Coding Level of Care Code Est Pt Prev Care 40-64y(28332) Diagnoses Well woman exam Z01.419
[2024-09-03 11:19] VITALS: BP 130/80; BMI 28.2
--- OUTSIDE RECORDS SUMMARY | 2024-09-03 12:03 | XMS_ITS | Clinical Summary ---
Author Organization [facility] Address [address] [place] [address] Phone Care Team Providers Care Customer Service Trainer Name Role Phone Karl Murphy MD Primary Care Provider [phone] Allergies No known active allergies Medications atorvastatin (LIPITOR) 40 mg tablet Take 2 tablets (80 mg total) by mouth 1 (one) time each day. 5 Active albuterol HFA (PROAIR HFA ; PROVENTIL HFA ; VENTOLIN HFA) 90 mcg/actuation inhaler every 4 (four) hours if needed. 4 Active estazolam (PROSOM) 2 mg tablet Take 1 tablet (2 mg total) by mouth at bedtime as needed. 5 Active gabapentin (NEURONTIN) 100 mg capsule Take 2 capsules (200 mg total) by mouth 2 (two) times a day. 5 Active latanoprost (XALATAN) 0.005 % ophthalmic solution INSTILL 1 DROP INTO RIGHT EYE EVERY EVENING 5 Active levETIRAcetam (KEPPRA) 250 mg tablet Take 1 tablet (250 mg total) by mouth 2 (two) times a day. 5 Active Xiidra 5 % dropperette Administer 1 drop into both eyes 2 (two) times a day. 5 Active metFORMIN (GLUCOPHAGE) 500 mg tablet Take 1 tablet (500 mg total) by mouth 1 (one) time each day. 5 Active omeprazole (PriLOSEC) [address] capsule Take 1 capsule (40 mg total) by mouth 1 (one) time each day. 5 Active levETIRAcetam (KEPPRA) 1,000 mg tablet Take 1 tablet (1,000 mg total) by mouth 2 (two) times a day. Active lisinopril-hydr oCHLOROthiazide (PRINZIDE,ZESTO RETIC) 20-25 mg per tablet Take 1 tablet by mouth 1 (one) time each day. Active lisinopril-hydr oCHLOROthiazide (PRINZIDE,ZESTO RETIC) 10-12.5 mg per tablet Take by mouth 1 (one) time each day. 5 08/16/19 25 Discontin ued(Formu nelda change) Vitamin D3 25 mcg (1,000 unit) capsule Take 1 capsule (1,000 Units total) by mouth 1 (one) time each day. 5 08/22/19 25 Discontin ued(Stop Taking at Discharge ) aspirin 81 mg EC tablet Take 1 tablet (81 mg total) by mouth 1 (one) time each day. 08/22/19 25 Discontin ued(Stop Taking at Discharge ) Active Problems Problem Noted Date Diagnosed Date HTN (hypertension) 08/20/2024 Gastroesophageal reflux disease 08/20/2024 Seizures ([facility] V24, [facility] V28) 08/20/2024 Arthritis 08/20/2024 Diabetes mellitus, type 2 ([facility] V24, [facility] V28) 08/20/2024 Anemia 08/20/2024 PONV (postoperative nausea and vomiting) 025 Soft tissue mass 07/01/2024 Encounters Date Type Department Care Team Description 08/21/2024 7:35 AM EDT Anesthesia Event [facility] OR [address] [place] [address] Caprice Salmon MD 08/21/2024 7:30 AM EDT - 08/21/2024 9:00 AM EDT Surgery [facility] OR [address] [place] [address] Devi Russell MD EXCISION LESION SOFT TISSUE RIGHT POSTERIOR SHOULDER [47404 (CPT )] 08/21/2024 5:58 AM EDT - 08/21/2024 9:18 AM EDT Hospital Encounter [facility] OR [address] [place] [address] Devi Russell MD Soft tissue mass Discharge Disposition: Home or Self Care 07/01/2024 9:15 AM EDT Consult General Surgery - [place] [address] [facility] [address] [place] [phone] Devi Russell MD Soft tissue mass (Primary Dx); Epidermal inclusion cyst from Last 3 Months Surgical History Surgery Date Site/Laterality Comments OTHER SURGICAL HISTORY CATARACT EXTRACTION LASIK CERVICAL DISCECTOMY LUMBAR FUSION COLON SURGERY RECTAL POLYPECTOMY BREAST BIOPSY Right Medical History Medical History Date Comments PONV (postoperative nausea and vomiting) Hypertension Hyperlipidemia Irregular heart beat Asthma Glaucoma Diabetes mellitus ([facility] V24, [facility] V28) GERD (gastroesophageal reflux disease) Anemia hx Anxiety Depression Seizures ([facility] V24, [facility] V28) last december Arthritis Joint pain Sleep apnea Social History Tobacco Use Types Packs/Day Years Used Date Smoking Tobacco: Former Cigarettes Tobacco Cessation:Counseling Given: Not Answered Alcohol Use Standard Drinks/Week Comments Yes 0 (1 standard drink = 0.6 oz pur e alcohol) RARE Interpersonal Safety Answer Date Record ed Physical Abuse 08/21/2024 Verbal Abuse 08/21/2024 Comments No Sex and Gender Information Value Date Recorded Sex Assigned at Not on file Legal Sex Female 1:39 PM EDT Gender Identity Female 06/13/2024 1:46 PM EDT Sexual Orientation Not on file Obstetrics History Last Filed Vital Signs Vital Sign Reading Time Taken Comments Blood Pressure 121/63 08/21/2024 8:24 AM EDT Pulse 59 08/21/2024 8:24 AM EDT Temperature 35.8 C (96.4 F) 08/21/2024 8:14 AM EDT Respiratory Rate 18 08/21/2024 8:24 AM EDT Oxygen Saturation 100% 08/21/2024 8:24 AM EDT Inhaled Oxygen Concentration - - Weight 69.9 kg (154 lb) 08/21/2024 6:30 AM EDT Height 162.6 cm (5' 4 ) 08/21/2024 6:30 AM EDT Body Mass Index 26.43 08/21/2024 6:30 AM EDT Plan of Treatment Upcoming Encounters Date Type Department Care Team (Late st Contact Info) Description 09/09/2024 10:45 AM EDT Office Visit General Surgery - [place] [address] [facility] [address] [place] [phone] Devi Russell MD [address] [facility] [address] [place] [address] Health Maintenance Due Date Last Done Comments Breast Cancer Screening 1960 Diabetes: Annual GFR (Glomerular Filtration Rate) 1960 Diabetes: Annual Foot Exam 1970 Diabetes: Annual Retina Eye Exam 1970 DTaP,Tdap,and Td Vaccines (1 - Tdap) 09/28/1979 Pneumococcal Vaccine: 50+ Years (1 of 2 - PCV) 09/28/1979 Cervical Cancer Screening: Pap Smear 1981 Zoster Vaccines (1 of 2) 2010 Cholesterol Screening (Lipid Panel) 06/14/2024 Colorectal Cancer Screening: Colonoscopy 06/14/2024 Depression Screening 06/14/2024 HIV Screening 06/14/2024 Hepatitis C Screening 06/14/2024 Medicare Annual Wellness Visit 06/14/2024 Social Influencers of Health Screening 06/14/2024 Diabetes: Annual Urine Albumin-Creatinine Ratio (uACR) 08/21/2024 Diabetes: Blood Sugar Control Test (HGBA1C) 08/21/2024 Hypertension/CHF/CAD Annual BMP Blood Test 08/21/2024 Influenza Vaccine (#1) 2024 , 01/07/2023, 01/11/2021, Additional history exists RSV Immunization Adult Patients (1 - 1-dose 75+ series) 09/28/2035 COVID-19 Vaccine Completed 12/22/2023, 01/07/2023 HIB Vaccines [...] on patient's age to complete this topic Procedures Procedure Name Priority Date/Time Associated Diagnosis Comments TISSUE EXAM Routine 08/21/2024 8:00 AM EDT Soft tissue mass NC EXCISION TUMOR/SOFT TISSUE SHOULDER AREA SUBCUTANEOUS < 3 CM 08/21/2024 7:34 AM EDT Soft tissue mass Special Needs -- Asking 60 Minutes for this case. POCT GLUCOSE BLOOD Routine 08/21/2024 6: 18 AM EDT ECG 12-LEAD Routine 08/14/2024 10:07 AM EDT Epidermal inclusion cyst Soft tissue mass from Last 3 Months Results * Tissue exam (08/21/2024 8:00 AM EDT) Final Diagnosis Shoulder, Right, Lesion of posterior-EXCISIO N: -EPIDERMAL INCLUSION CYST, RUPTURED 08/25/2024 1:22 PM EDT [facility] Gross Description A. Shoulder, Right, Lesion of posterior: Labeled lesion of shoulder R . Received in formalin is an unoriented, 2.0 x 0.9 x 0.8 cm enriquez skin ellipse and subcutis. The bulging subcutaneous tissue are inked blue and sectioning are contiguous with a 0.4 cm in greatest diameter smooth-walled, unilocular cyst which contains white, friable material. A real estate representative section is submitted in one cassette, one piece. TS 08/25/2024 1:22 PM EDT [facility] Disclaimer Unless otherwise specified, all tissue is 10% NB formalin fixed and paraffin embedded. 08/25/2024 1:22 PM EDT [facility] Tissue Structure of right shoulder region / Unknown 08/21/2024 8:00 AM EDT 08/21/2024 9:39 AM EDT Devi Russell MD LAB PATHOLOGY ORDERABLE S Final Result Performing Organization Address [facility]/ZIP Co de Phone Number [facility] [address] [place] [address], [place] [phone] * (ABNORMAL) POCT Glucose, blood (08/21/2024 6:18 AM EDT) Glucose POCT 126(H) 70 - 100 mg/dL 08/21/2024 6:19 AM EDT [facility] Blood Capillary blood specimen / Unknown 08/21/2024 6:18 AM EDT 08/21/2024 6:20 AM EDT Devi Russell MD LAB POINT OF CA RE TEST DOCKED DEVICE UNSOLICITED RESULTS Final Result Performing Organization Address City/[facility]/ZIP Co de Phone Number [facility] [address] [place] [address], [place] [phone] * ECG 12 lead (08/14/2024 10:07 AM EDT) Ventricular Rate ECG 61 BPM GEMUSE Atrial Rate 61 BPM GEMUSE P-R Interval 160 ms GEMUSE QRS Duration 74 ms GEMUSE Q-T Interval 448 ms GEMUSE QTc 450 ms GEMUSE P Wave [place] 47 degrees GEMUSE R [place] -2 degrees GEMUSE T [place] 3 degrees GEMUSE ECG Interpretation Sinus rhythm Minimal voltage criteria for LVH, may be normal variant ( R in aVL ) Nonspecific ST and T wave abnormality Abnormal ECG No previous ECGs available Confirmed by Chan KNIGHT YUFENG ([id number]) on 08/14/2024 12:28:14 PM GEMUSE 08/14/2024 10:0 7 AM EDT 08/14/2024 12:28 PM EDT us Devi Russell MD ECG ORDERABLES Final R esult GEMUSE from [place] [address] [id number] [id number] MEDICARE [facility] Advance Directives * Full Code - Default (Latest Code Status on File) Date Activated Date Inactivated Comments 08/21/2024 6:04 AM 08/21/2024 11:18 AM This is order is used when code status has not been discussed with the patient, or code status is otherwise unknown/unconfirmed To update the patient's code status, place a code status order. Do not modify or discontinue any currently active code status orders. Care Teams Customer Service Trainer Relationship Specialty Start Date End Date Karl Murphy MD [facility] [address] [place] [address] [address] [id number] [id number] PCP - General Internal Medicine 08/08/24
== END 2024-09-03 11:57 | disposition home or self-care (01) ==
LOC: HO.HWS 11:08
PROVIDERS: PCP Internal Medicine; Visit Provider Advanced Practice Midwife
DX: Z01.419 Encounter for gynecological examination (general) (routine) without abnormal findings (principal)
CPT/HCPCS: G0101

== ENCOUNTER → 2024-09-03 11:08 | Outpatient (BNVA) | payer MEDICARE, OTHER, SELFPAY | PROVIDERS: PCP Internal Medicine; Visit Provider Advanced Practice Midwife | DX: Z01.419 Encounter for gynecological examination (general) (routine) without abnormal findings (principal) | CPT/HCPCS: G0101 ==

== ENCOUNTER 2024-09-18 10:00 | Outpatient (AMB) | payer MEDICARE, OTHER, SELFPAY ==
--- NOTE | 2024-09-18 10:05 | MHC.OFFVIS ---
Vital Signs 09/18/24 10:05 Height 5 ft 2 in Intake Visit Reasons: 6m sz Allergies topiramate (Topamax) Allergy (Intermediate, Verified 09/18/24 10:09) ? seizure-patient unsure ibuprofen Allergy (Mild, Verified 09/18/24 10:09) Stomach Upset Medication List - Last Reconciled 09/18/24 by Mel Couch CNP albuterol sulfate 90 mcg/actuation 2 puffs inhalation Q6H PRN aspirin 81 mg PO QAM Held on 06/20/23. Instructions: Resume on 06/23/23. atorvastatin 80 mg PO BEDTIME blood pressure test kit-large As directed nrfcffzjkf-tiglsjkmnrtdu-runl 50-325-40 mg 1 tab PO Q8H PRN 30 days cholecalciferol (vitamin D3) 25 mcg PO QAM estazolam 2 mg PO BEDTIME gabapentin 200 mg PO BID levetiracetam (Keppra) 1,000 mg PO BID levetiracetam (Keppra) 250 mg PO BID lisinopril-hydrochlorothiazide 20-12.5 mg 1 tab PO DAILY metformin ER 1,000 mg (2 x 500 mg) PO BID omega 6-vnn-nmf-fish oil 1,000 (120-180) mg (Fish Oil) 1 cap PO QPM omeprazole 40 mg PO QAM oxycodone 5 mg PO Q6H PRN HPI Comments Details: No seizures. No missed doses of levetiracetam. Sleep was better with estazolam. She was having some forgetfulness over the last few months. She will tell her she will get him coffee, and will return without it and he will have to remind her. On a few occasions, she forgot to shut off stove and her will double check to make sure it is off. More stress, grinding teeth. Mood was not so good, anxious, depressed, irritable at times. She has not been taking sertraline for some time and wanted to restart medication. She was trying to find therapist. Chronic LBP has been okay. Balance off at times, but no falls. She had few headaches, pain usually to back of head. Butalbital as needed helps. She had 2 seizure-like episodes on 01/17/24 with syncope, mild twitching, and memory loss after she had cut her Keppra in half for 3 weeks on her own. This was the first episode since 2021. She was not getting enough sleep either. Tried Zolpidem, but takes some time to kick in. Still stressed, some days better than others. Gets tingling around her mouth when stressed. Has not seen therapist since 12/2022. Hx seizure disorder for >10 years. Had Sz in Mar 2021 when she was stressed out and was upset. Had a couple of sec Sz with eyes rolling back, shaking all over. Family and paramedics thought it was a panic attack. Had sz in 2020 on Keppra. Gets left sided DAMIAN occasionally. Also has chr. LBP after spinal fusion with hardware May 2016. Hx of anxiety, depression, diabetes, and seizures starting in childhood that have been fairly well controlled with Keppra. Gets brief dizzy spells with funny feeling in her epigastrium that lasts 1-2 seconds, 1-2x/week. MRIs of the brain in the past have shown scattered foci of T2 hyperintensity in the deep white matter of both hemispheres which is a nonspecific finding. Evoked potential studies for MS in the past have been negative. MRI of the brain has been stable consistent with MS but without any clinical symptoms. In the past she has been on amitriptyline or nortriptyline discontinuing both because of some weight gain. [facility] Medical History Cataract associated with type 2 diabetes mellitus Chest pain Back pain Lumbar degenerative disc disease Panic attacks Anxiety Depression GERD (gastroesophageal reflux disease) Migraines HTN (hypertension) Insomnia Asthma High cholesterol Seizures Diabetes Surgical History History of surgical removal of lesion (~10/19/23) History of back surgery Hx of foot surgery History of esophagogastroduodenoscopy (EGD) H/O colonoscopy (~06/27/21) H/O eye surgery History of breast biopsy History of back surgery H/O tubal ligation H/O: hysterectomy Family History Mother Diabetes Sister Colon cancer Brother Cirrhosis of liver Throat cancer Maternal Aunt Colon cancer Social History Household Members: Spouse Housing: House Are you a primary healthcare consultant to a significant other at home: No Do you presently have visiting nurse or other home services: No Alcohol intake: current Alcohol intake frequency: does not drink Comment: pt states arm is sore--had previous sx on arm Patient Tobacco Use Status: Former Tobacco user Tobacco use type: Cigarette Years Smoked: 20 e-Cigarette/Vaping Use: Never Used Second Hand Smoke Exposure: Yes Substance Use Type: Marijuana service: No Current occupational status: retired Cognitive needs: Yes (cane/ walker) Hearing needs: No Vision needs: Yes (glasses) Review of Systems Const Denies chills, Denies daytime sleepiness, Reports difficulty sleeping, Denies fatigue, Denies fever(s), Denies frequent falls, Reports headache(s), Denies increased appetite, Denies poor appetite, Denies snoring, Denies weakness, Denies weight gain and Denies weight loss Eyes Denies loss of vision ENT Denies vertigo, Denies dizziness, Reports headache(s) and Denies neck pain Card Denies chest pain at rest, Denies chest pain with activity, Denies syncope, Denies leg edema, Denies palpitations, Denies dyspnea and Denies dyspnea on exertion Resp Denies cough, Denies dyspnea, Denies dyspnea on exertion and Denies snoring GI Denies abdominal pain, Denies constipation, Denies heartburn, Denies diarrhea and Denies nausea Denies urinary frequency, Denies urinary incontinence and Denies urinary urgency Musc Denies abnormal gait, Denies back pain, Denies myalgias, Denies arthralgias, Denies neck pain, Denies numbness and Denies tingling Neuro Denies abnormal gait, Denies vertigo, Denies dizziness, Denies syncope, Denies frequent falls, Reports headache(s), Denies lack of coordination, Denies loss of vision, Denies memory loss, Denies numbness, Denies Other visual disturbances, Denies restless legs, Denies seizure-like activity, Denies tingling, Denies paresthesias, Denies tremor(s) and Denies weakness Psych Reports anxiety, Denies depression, Denies auditory hallucinations, Denies memory loss and Denies visual hallucinations Endo Denies fatigue and Denies palpitations Physical Exam Const Other: General Appearance:? normal, in no acute distress. Heart:? S1, S2 normal, no murmurs. Lungs:? clear anteriorly and posteriorly. Musculoskeletal:? normal. Extremities:? no edema. Psych:? alert, oriented, cognitive function intact, cooperative with exam. Neuro Other: Abnormal Neurological Findings:?MMSE 24/30. Mental Status: alert and oriented X 3. Normal attention, orientation, memory, and affect. Cranial Nerves: Pupils are equal, round, and reactive to light. External ocular muscles are intact. Visual kitchen are full, no ptosis. Face is symmetrical, no facial weakness or droop. Facial sensations are normal. Tongue protrudes in midline. Palate elevates symmetrically. Shoulder shrugging is normal Motor Examination: Normal muscle tone, bulk and strength. No atrophy or fasciculations. No drift of the extended upper extremities. DTR 2+. Plantars are flexor. Straight Leg Raisin degrees. Sensory Exam: Normal light touch, temperature, pinprick, vibration, and joint-position sensations. Rhomberg sign is absent. Coordination: No ataxia. No titubation. Wivexg-xh-lupb, ekpa-oizw-tpid test, and rapid alternating movements were normal. Gait Exam: Within normal limits. Cerebellar Signs: Dwjsqr-um-uhpc and qihn-wb-ljhs is normal. No dysdiadochokinesia. Extrapyramidal System: No tremor, rigidity with normal facial expressions. No bradykinesia. No bradyphrenia. Normal arm swing and posture. No propulsion or retropulsion. Speech: Normal. No dysphasia or dysarthria. MMSE Level of Consciousness: Alert. Orientation: Knows correct year, month, date, day and season. Knows correct city, county and state. Knows correct location and floor. Registration: Able to register 3 objects. Attention: Unable to do. Recall: Able to recall 2 out of 3 objects. Language: Normal spontaneous speech, fluency, repetition, naming, comprehension, reading, and writing. Total Score: 24/30. Results Reviewed Results Reviewed: Laboratory Tests 07/12/24 10:32 WBC 6.0 RBC 4.42 Hgb 12.9 Hct 38.4 MCV 86.9 MCH 29.2 MCHC 33.6 RDW 12.6 Plt Count 183 MPV 12.1 Sodium 141 Potassium 4.1 Chloride 101 Carbon Dioxide 30 H Anion Gap 14 BUN 23 H Creatinine 0.71 Estimated GFR > 60 Random Glucose 194 H Hemoglobin A1c % 8.5 H Calcium 9.8 Total Bilirubin 0.6 Direct Bilirubin 0.2 AST 29 ALT 35 H Alkaline Phosphatase 106 Total Protein 7.9 Albumin 4.8 Vitamin B12 1141 H 25-OH Vitamin D Total 50.9 TSH 0.[address] [address] [address] Scan Report Signed Patient: Sydnee Langston MR#: [id number] : 1960 Acct:[id number] Age/Sex: 63 / F ADM Date: 01/17/24 Loc: HO.ED Attending Dr: Ordering Physician: Zulema Espitia Date of Service: 01/17/24 Procedure(s): CT head/brain wo IV con Accession Number(s): [id number] cc: Narinder Gregg MD; Zulema Espitia~ EXAMINATION: CT HEAD WITHOUT CONTRAST CLINICAL INFORMATION: Seizure. Left-sided headache. COMPARISON: None available. TECHNIQUE: Contiguous axial imaging was performed from the skull base to vertex without intravenous administration of contrast. This CT examination was performed using dose optimization techniques as appropriate, variously including the following: *Automated exposure control *Adjustment of mA and/or kV according to patient size (this includes techniques or standardized protocols for targeted exams where dose is matched to indication/reason for exam; i.e. extremities or head) *Use of iterative reconstruction technique DLP: 682 mGy-cm FINDINGS: The lateral, third and fourth ventricles are normally outlined. The cortical sulci and basal cisterns are normally outlined as well. There is mild bilateral periventricular and central white matter diminished attenuation. There is no acute territorial defects, hemorrhage or midline shift. The extra-axial spaces are unremarkable. Calvarium/scalp: Intact. Maxillofacial sinuses and mastoids: Clear as visualized. CT/CT head/brain wo IV con IMPRESSION: 1. No acute intracranial pathology. 2. Mild chronic microangiopathy. Assessment & Plan Assessment & Plan (1) Seizure disorder: Code(s): G40.909 - Epilepsy, unspecified, not intractable, without status epilepticus Category: Medical Plan: Continue levetiracetam 1000mg 1 tablet twice a day. Continue levetiracetam 250mg 1 tablet twice a day. (2) Insomnia: Code(s): G47.00 - Insomnia, unspecified Category: Medical Qualifiers: Insomnia type: unspecified Qualified Code(s): G47.00 - Insomnia, unspecified Plan: Continue estazolam 2mg 1 tablet at bedtime as needed for sleep. (3) Lumbar disc disease: Code(s): M51.9 - Unspecified thoracic, thoracolumbar and lumbosacral intervertebral disc disorder Category: Medical Plan: Continue gabapentin 100mg 2 tablets twice a day. (4) Tension headache: Code(s): G44.209 - Tension-type headache, unspecified, not intractable Category: Medical Plan: Continue lkaqhtbswi-CCIP-htlnyxkb 50-325-40mg 1 tablet as needed q6h for headache #30 for 30 days (5) Anxiety and depression: Code(s): F41.9 - Anxiety disorder, unspecified; F32.A - Depression, unspecified Category: Medical Plan: Restart sertraline, use/side effects reviewed. (6) MCI (mild cognitive impairment): Code(s): G31.84 - Mild cognitive impairment of uncertain or unknown etiology Category: Medical Plan: She had labs done recently which included CBC, metabolic panel, vitamin B 12, and TSH level which were okay, A1c elevated at 8.5. She had CT scan in 12/2023 which was reviewed and showed mild chronic microangiopathy. She was advised to stay physically and socially active. Medications: New sertraline 25 mg PO DAILY 90 tabs 0RF 90 days Coding Level of Care Code Est Pt Level 4 (22137) Diagnoses Seizure disorder G40.909 Insomnia, unspecified type G47.00 Insomnia type: unspecified Lumbar disc disease M51.9 Tension headache G44.209 Anxiety and depression F41.9; F32.A MCI (mild cognitive impairment) G31.84
--- OUTSIDE RECORDS SUMMARY | 2024-09-18 10:41 | XMS_ITS | Clinical Summary ---
Author Organization [address] [facility] Address [address] [place] [address] Phone Care Team Providers Care [employer] Manufacturer Name Role Phone Karl Murphy MD Primary Care Provider [phone] Allergies No known active allergies Medications atorvastatin [...] mouth 1 (one) time each day. Active levETIRAcetam (KEPPRA) 1,000 mg tablet Take 1 tablet (1,000 mg total) by mouth 2 (two) times a day. Active lisinopril-hydr oCHLOROthiazide (PRINZIDE,ZESTO RETIC) 20-25 mg per tablet Take 1 tablet by mouth 1 (one) time each day. Active Vitamin D3 25 mcg (1,000 unit) [...] (hypertension) 08/20/2024 Gastroesophageal reflux disease 08/20/2024 Seizures ([facility] V24, [facility] V28) 08/20/2024 Arthritis 08/20/2024 Diabetes mellitus, type 2 ([facility] V24, [facility] V28) 08/20/2024 Anemia 08/20/2024 PONV (postoperative nausea and vomiting) 025 Soft tissue mass 07/01/2024 Encounters Date Type Department Care Team Description 09/09/2024 10:45 AM EDT Office Visit General Surgery - [address] [place] [address] Devi Russell MD Soft tissue mass (Primary Dx) 08/21/2024 7:35 AM EDT Anesthesia Event [facility] OR [address] [place] [address] Caprice Salmon MD 08/21/2024 7:30 AM EDT - 08/21/2024 9:00 AM EDT Surgery [facility] OR [address] [place] [id number] Devi Russell MD EXCISION LESION SOFT TISSUE RIGHT POSTERIOR SHOULDER [24802 (CPT )] 08/21/2024 5:58 AM EDT - 08/21/2024 9:18 AM EDT Hospital Encounter [facility] OR [address] [place] [address] Devi Russell MD Soft tissue mass Discharge Disposition: Home or Self Care 07/01/2024 9:15 AM EDT Consult General Surgery - [place] [address] [facility] [address] [place] [address] Devi Russell MD Soft tissue mass (Primary Dx); Epidermal inclusion cyst from Last 3 Months Surgical History Surgery Date Site/Laterality Comments OTHER SURGICAL HISTORY CATARACT EXTRACTION LASIK CERVICAL DISCECTOMY LUMBAR FUSION COLON SURGERY RECTAL POLYPECTOMY BREAST BIOPSY Right Medical History Medical History Date Comments PONV (postoperative nausea and vomiting) Hypertension Hyperlipidemia Irregular heart beat Asthma Glaucoma Diabetes mellitus ([facility] V24, [facility] V28) GERD (gastroesophageal reflux disease) Anemia hx Anxiety Depression Seizures ([facility] V24, [facility] V28) last december Arthritis Joint pain Sleep apnea Social History Tobacco Use Types Packs/Day Years Used Date Smoking Tobacco: Former Cigarettes Tobacco Cessation:Counseling Given: Not Answered Alcohol Use Standard Drinks/Week Comments Not Currently 0 (1 standard drink = 0.6 oz [...] Sign Reading Time Taken Comments Blood Pressure 118/77 09/09/2024 10:54 AM EDT Pulse 66 09/09/2024 10:54 AM EDT Temperature 36.3 C (97.3 F) 09/09/2024 10:54 AM EDT Respiratory Rate 18 08/21/2024 8:24 AM EDT Oxygen Saturation 100% 08/21/2024 8:24 AM EDT Inhaled Oxygen Concentration - - Weight 70.3 kg (155 lb) 09/09/2024 10:54 AM EDT Height 157.5 cm (5' 2 ) 09/09/2024 10:54 AM EDT Body Mass Index 28.35 09/09/2024 10:54 AM EDT Plan of Treatment Health Maintenance Due Date Last Done Comments Breast Cancer Screening 1960 Diabetes: Annual GFR (Glomerular Filtration Rate) 1960 Diabetes: Annual Foot Exam 1970 Diabetes: Annual Retina Eye Exam 1970 DTaP,Tdap,and Td Vaccines (1 - Tdap) 09/28/1979 Pneumococcal Vaccine: 50+ Years (1 of 2 - PCV) 09/28/1979 Cervical Cancer Screening: Pap Smear 1981 Zoster Vaccines (1 of 2) 2010 Depression Screening 02/20/2024 Cholesterol Screening (Lipid Panel) 06/14/2024 Colorectal Cancer Screening: Colonoscopy 06/14/2024 HIV Screening 06/14/2024 Hepatitis C Screening [...] 08/21/2024 8:00 AM EDT Soft tissue mass IN EXCISION TUMOR/SOFT TISSUE SHOULDER AREA SUBCUTANEOUS < [...] INCLUSION CYST, RUPTURED 08/25/2024 1:22 PM EDT [facility] Gross Description A. Shoulder, Right, Lesion of posterior: Labeled lesion of shoulder R . Received in formalin is an unoriented, 2.0 x 0.9 x 0.8 cm enriquez skin ellipse and subcutis. The bulging subcutaneous tissue are inked blue and sectioning are contiguous with a 0.4 cm in greatest diameter smooth-walled, unilocular cyst which contains white, friable material. A patient representative section is submitted in one cassette, one piece. TS 08/25/2024 1:22 PM EDT [facility] Disclaimer Unless otherwise specified, all tissue is 10% NB formalin fixed and paraffin embedded. 08/25/2024 1:22 PM EDT [facility] Tissue Structure of right shoulder region / Unknown 08/21/2024 8:00 AM EDT 08/21/2024 9:39 AM EDT us Devi Russell MD LAB PATHOLOGY ORDERABLE S Final Result [facility] [address] [place] [address], [place] [phone] * (ABNORMAL) POCT Glucose, blood (08/21/2024 6:18 AM EDT) [facility] Glucose POCT 126(H) 70 - 100 mg/dL 08/21/2024 6:19 AM EDT [facility] Blood Capillary blood specimen / Unknown 08/21/2024 6:18 AM EDT 08/21/2024 6:20 AM EDT Devi Russell MD LAB POINT OF CA RE TEST DOCKED DEVICE UNSOLICITED RESULTS Final Result Performing Organization Address City/[facility]/ZIP Co de Phone Number [facility] [address] [place] [address], * ECG 12 lead (08/14/2024 10:07 AM EDT) [facility] Ventricular Rate ECG 61 BPM GEMUSE Atrial Rate 61 BPM GEMUSE P-R Interval 160 ms GEMUSE QRS Duration 74 ms GEMUSE Q-T Interval 448 ms GEMUSE QTc 450 ms GEMUSE P Wave [place] 47 degrees GEMUSE R [place] -2 degrees GEMUSE T [place] 3 degrees GEMUSE ECG Interpretation Sinus rhythm Minimal voltage criteria for LVH, may be normal variant ( R in aVL ) Nonspecific ST and T wave abnormality Abnormal ECG No previous ECGs available Confirmed by Chan KNIGHT, TAMIA ([id number]) on 08/14/2024 12:28:14 PM GEMUSE 08/14/2024 10:0 7 AM EDT 08/14/2024 12:28 PM EDT Devi Russell MD ECG ORDERABLES Final R esult GEMUSE from Last 3 Months Insurance MEDICARE [facility] Advance Directives * Full Code - Default [...] currently active code status orders. Care Teams [employer] Manufacturer Relationship Specialty Start Date End Date Karl Murphy MD [address] [place] [address] PCP - General Internal Medicine 08/08/24
== END 2024-09-18 10:40 | disposition home or self-care (01) ==
LOC: HO.HSM 10:01
PROVIDERS: PCP Internal Medicine; Referring Provider Nurse Practitioner Family; Visit Provider Registered Nurse
DX: G40.909 Epilepsy, unspecified, not intractable, without status epilepticus (principal); G47.00 Insomnia, unspecified; M51.9 Unspecified thoracic, thoracolumbar and lumbosacral intervertebral disc disorder; G44.209 Tension-type headache, unspecified, not intractable; F41.9 Anxiety disorder, unspecified; F32.A Depression, unspecified; G31.84 Mild cognitive impairment of uncertain or unknown etiology
CPT/HCPCS: 99214

== ENCOUNTER → 2024-09-18 10:00 | Outpatient (BNVA) | payer MEDICARE, OTHER, SELFPAY | PROVIDERS: PCP Internal Medicine; Referring Provider Nurse Practitioner Family; Visit Provider Registered Nurse | DX: G40.909 Epilepsy, unspecified, not intractable, without status epilepticus (principal); G44.209 Tension-type headache, unspecified, not intractable; G47.00 Insomnia, unspecified; M51.9 Unspecified thoracic, thoracolumbar and lumbosacral intervertebral disc disorder; F41.9 Anxiety disorder, unspecified; F32.A Depression, unspecified; G31.84 Mild cognitive impairment of uncertain or unknown etiology; Z79.2 Long term (current) use of antibiotics; Z79.84 Long term (current) use of oral hypoglycemic drugs; Z79.891 Long term (current) use of opiate analgesic; Z79.899 Other long term (current) drug therapy | CPT/HCPCS: 99212 ==

== ENCOUNTER 2024-11-03 10:21 | Outpatient (AMB) | payer MEDICARE, OTHER, SELFPAY ==
--- NOTE | 2024-11-03 10:25 | A.OFFPC_ITS ---
Vital Signs 11/03/24 10:30 Height 5 ft 2 in Weight 69.853 kg BMI 28.2 BP 94/56 L Pulse 57 Pulse Source Pulse Oximeter Temp 97.1 F Temp Source Temporal Artery Scan Pulse Oximetry (%) 97 Oxygen Delivery Method Room Air Intake Visit Reasons: 4 Month F/U - see comments Log Haul Operator Required: No Accompanied by: Self / Same As Patient Allergies topiramate (Topamax) Allergy (Intermediate, Verified 11/03/24 10:25) ? seizure-patient unsure ibuprofen Allergy (Mild, Verified 11/03/24 10:25) Stomach Upset Medication List - Last Reconciled 11/03/24 by MAYKEL Holm albuterol sulfate 90 mcg/actuation 2 puffs inhalation Q6H PRN aspirin 81 mg PO QAM Held on 06/20/23. Instructions: Resume on 06/23/23. atorvastatin 80 mg PO BEDTIME blood pressure test kit-large As directed ygsenjvwzx-uzunecqojhwfy-oaro 50-325-40 mg 1 tab PO Q8H PRN 30 days cholecalciferol (vitamin D3) 25 mcg PO QAM estazolam 2 mg PO BEDTIME gabapentin 200 mg PO BID latanoprost 0.005% 1 drp ophthalmic-Right QPM levetiracetam (Keppra) 1,000 mg PO BID levetiracetam (Keppra) 250 mg PO BID lifitegrast 5% (Xiidra) 1 drp ophthalmic (eye) BID lisinopril 20 mg PO DAILY meloxicam 15 mg PO DAILY metformin ER 1,000 mg (2 x 500 mg) PO BID omega 9-hka-btx-fish oil 1,000 (120-180) mg (Fish Oil) 1 cap PO QPM omeprazole 40 mg PO QAM sertraline 25 mg PO DAILY 90 days timolol maleate 0.5% 1 drp ophthalmic-Right Q12H Tobacco use date assessed: 11/03/24 Fall risk assessment: No Falls in past year Last assessed Fall Risk: 11/03/24 Dental Screening Dental Screen Date: 11/03/24 Did you have a dental visit in the last 12 months?: Yes Did you have a dental problem in the last 6 months where you did not have access to dental care?: No Was dental information given to patient?: No HPI HPI Comments History of Present Illness Details 64-year-old female with history of hyper tension, anxiety/panic attacks, migraines, seizures, type 2 diabetes with cataracts, hyperlipidemia, asthma presenting to the office today accompanied by her mauro layton for management of chronic conditions. Hypertension-compliant with lisinopril-hydrochlorothiazide 20-12.5 mg daily. Blood pressure in the office 94/56, recheck 96/50. Does report intermittent lightheadedness. Reports he drinks plenty of water Hyperlipidemia-atorvastatin 80 mg daily. Last LDL 100 Type 2 diabetes-last hemoglobin A1c 8.5%. On metformin 1000 mg ER twice daily Neuro-seizures/ mild cognitive impairment/migraines-following with Neurology. Seizures stable on Keppra 1250 mg twice daily as well as gabapentin. Sertraline 25 mg. Also taking Fioricet p.r.n. Last seizure Dec 2023. Driving again due to 's recent seizures Anxiety/ Insomnia-on estazolam and sertraline Concerns: Chronic low back ongoing several months. No injury. Has been through physical therapy last year. Bilateral radiculopathy L>R. Bilateral weakness. Prior history of Upper back pain/shoulder- follows with ortho, has received cortisone injections. Previously followed with [facility] orthopedics Driving-patient reports she has not driven in many months. Previously her would drive her, however he had a seizure last month and is no longer able to drive for 6 months. Health Maintenance: Last screening mammogram 05/2024 with 1 year follow-up advised, no evidence of malignancy S/p hysterectomy-paps no longer indicated Last colonoscopy 06/2021 with 10 year follow-up advised, Dr. Albrecht Due for DEXA scan ROS: See HPI EXAM: Constitutional - Awake and Alert, No apparent distress Eyes - PERRL Cardiovascular - S1S2, RRR, No edema Respiratory - Normal lung expansion, Normal respiratory effort, No respiratory distress, CTA bilaterally Extremities - no calf tenderness bilaterally, no swelling Skin - Warm/Dry Neurological - Alert & oriented x3 Psychological - Appropriate affect PFSH Medical History Cataract associated with type 2 diabetes mellitus Chest pain Back pain Lumbar degenerative disc disease Panic attacks Anxiety Depression GERD (gastroesophageal reflux disease) Migraines HTN (hypertension) Insomnia Asthma High cholesterol Seizures Diabetes Surgical History History of surgical removal of lesion (~10/19/23) History of back surgery Hx of foot surgery History of esophagogastroduodenoscopy (EGD) H/O colonoscopy (~06/27/21) H/O eye surgery History of breast biopsy History of back surgery H/O tubal ligation H/O: hysterectomy Family History Mother Diabetes Sister Colon cancer Brother Cirrhosis of liver Throat cancer Maternal Aunt Colon cancer Social History Household Members: Spouse Housing: House Are you a primary home care assistant to a significant other at home: No Do you presently have visiting nurse or other home services: No Alcohol intake: current Alcohol intake frequency: does not drink Comment: pt states arm is sore--had previous sx on arm Patient Tobacco Use Status: Former Tobacco user Tobacco use type: Cigarette Years Smoked: 20 e-Cigarette/Vaping Use: Never Used Second Hand Smoke Exposure: Yes Substance Use Type: Marijuana service: No Current occupational status: retired Cognitive needs: Yes (cane/ walker) Hearing needs: No Vision needs: Yes (glasses) Questionnaire Thrive Questionnaire Date Thrive assessed: 06/20/23 KANWAL-7 AMB Questionnaire KANWAL-7 Date KANWAL - 7 assessed: 09/01/22 Source: Developed by Drs. Aneesh Lomax, Selma Pedroza, Salvador Aparicio and colleagues, with an educational dheeraj from [employer]. Physical exam (Primary Care) Vital Signs: Last Vital Signs Temp 97.1 F 11/03/24 10:30 Pulse 57 11/03/24 10:30 BP 94/56 L 11/03/24 10:30 Pulse Ox 97 11/03/24 10:30 Oxygen Delivery Method Room Air 11/03/24 10:30 BMI result Body Mass Index 28.2 Tobacco/Smoking Status: Tobacco use Status Tobacco use date assessed 11/03/24 11/03/24 10:32 Patient Tobacco Use Status Former Tobacco user 11/03/24 10:32 Tobacco use type Cigarette 11/03/24 10:32 e-Cigarette/Vaping Use Never Used 09/15/25 10:32 Thrive Assessment: Date of Thrive Assessment Date Thrive assessed 06/20/23 11/03/24 10:32 Coding Level of Care Code Est Pt Level 4 (26875) Complex EM visit Add On G2211 Diagnoses Diabetes E11.9 Hypertension I10 Arthritis of left glenohumeral joint M19.012 Lumbar post-laminectomy syndrome M96.1 Seizure disorder G40.909 Assessment & Plan Assessment & Plan (1) Diabetes: Comment: dx ~ age 58-FBS usually [id number] metformin Code(s): E11.9 - Type 2 diabetes mellitus without complications Category: Medical Plan: Previously uncontrolled. Updated hemoglobin A1c ordered. Continue metformin 1000 mg twice daily ER. Diabetic diet. Continue with annual eye exams. Urine microalbumin screen ordered (2) Hypertension: Code(s): I10 - Essential (primary) hypertension Category: Medical Plan: Blood pressure low normal with intermittent lightheadedness. Discontinue hydrochlorothiazide 12.5 mg and continue lisinopril 20 mg daily. (3) Arthritis of left glenohumeral joint: Code(s): M19.012 - Primary osteoarthritis, left shoulder Category: Medical Plan: Meloxicam prescribed, can use topical analgesics and ice. Advised to schedule follow-up with Orthopedic surgery (4) Lumbar post-laminectomy syndrome: Code(s): M96.1 - Postlaminectomy syndrome, not elsewhere classified Category: Medical Plan: Pain unmanaged. Prescribed meloxicam. Can use topical analgesics. Advised to follow-up with Neurosurgery (5) Seizure disorder: Code(s): G40.909 - Epilepsy, unspecified, not intractable, without status epilepticus Category: Medical Plan: Stable, no recent seizures. Advised she is okay to drive given last seizure was over 6 months ago. Continue Keppra. Continue following with Neurology, last note reviewed Plan Follow-up in the office in 2-3 weeks for blood pressure check, labs to be completed following visit today Follow-up in the office in 4 months with labs completed several days prior to visit Orders: Orders Hemoglobin A1c Today E11.9 - Type 2 diabetes mellitus without complications, E78.5 - Hyperlipidemia, unspecified, F32.A - Depression, unspecified, F41.9 - Anxiety disorder, unspecified, I10 - Essential (primary) hypertension Lipid Panel Today E11.9 - Type 2 diabetes mellitus without complications, E78.5 - Hyperlipidemia, unspecified, F32.A - Depression, unspecified, F41.9 - Anxiety disorder, unspecified, I10 - Essential (primary) hypertension XR DEXA axial skeleton Today M89.8X9 - Other specified disorders of bone, unspecified site, Z78.0 - Asymptomatic menopausal state Basic Metabolic Panel Today E11.9 - Type 2 diabetes mellitus without complications, E78.5 - Hyperlipidemia, unspecified, F32.A - Depression, unspecified, F41.9 - Anxiety disorder, unspecified, I10 - Essential (primary) hypertension Microalbumin, Random (w Creat) Today E11.9 - Type 2 diabetes mellitus without complications, E78.5 - Hyperlipidemia, unspecified, F32.A - Depression, unspecified, F41.9 - Anxiety disorder, unspecified, I10 - Essential (primary) hypertension Hemoglobin A1c 3 Months E11.9 - Type 2 diabetes mellitus without complications Medications: New meloxicam 15 mg PO DAILY 90 tabs 0RF lisinopril 20 mg PO DAILY 90 tabs 1RF Discontinued lisinopril-hydrochlorothiazide 20-12.5 mg Discontinued Reason: Doctor's Order 1 tab PO DAILY 90 tabs 1RF Patient Instructions: Schedule an appointment with Dr. Mahajan and ortho
[2024-11-03 10:30] VITALS: BP 94/56; PULSE 57; TEMP 36.2; O2SAT 97; BMI 28.2
--- OUTSIDE RECORDS SUMMARY | 2024-11-03 13:10 | XMS_ITS | Clinical Summary ---
Author Organization [address] [facility] Address [address] [place] [address] Phone Care Team Providers Care Instructional Developer Name Role Phone Karl Murphy MD Primary Care Provider [phone]- [phone] Allergies No known active allergies Medications atorvastatin [...] mouth 2 (two) times a day. Active lisinopril-hydro CHLOROthiazide (PRINZIDE,ZESTOR ETIC) 20-25 mg per tablet Take 1 tablet by mouth 1 (one) time each day. Active Active Problems Problem Noted Date Diagnosed Date HTN (hypertension) 08/20/2024 Gastroesophageal reflux disease 08/20/2024 Seizures ([facility] V24, [facility] V28) 08/20/2024 Arthritis 08/20/2024 Diabetes mellitus, type 2 ([facility] V24, [facility] V28) 08/20/2024 Anemia 08/20/2024 PONV (postoperative nausea and vomiting) 025 Soft tissue mass 07/01/2024 Encounters Date Type Department Care Team Description 09/09/2024 10:45 AM EDT Office Visit General Surgery [address] [place] [address] Devi Russell MD Soft tissue mass (Primary Dx) 08/21/2024 7:35 AM EDT Anesthesia Event [address] [address] Caprice Salmon MD 08/21/2024 7:30 AM EDT - 08/21/2024 9:[address] [facility] [place] [address] [place] [phone] Devi Russell MD EXCISION LESION SOFT TISSUE RIGHT POSTERIOR SHOULDER [41576 (CPT )] 08/21/2024 5:58 AM EDT - 08/21/2024 9:18 AM EDT Hospital Encounter [facility] [place] [address] [place] [phone] Devi Russell MD Soft tissue mass Discharge Disposition: Home or Self Care from Last 3 Months Surgical History Surgery Date Site/Laterality Comments OTHER SURGICAL HISTORY CATARACT EXTRACTION LASIK CERVICAL DISCECTOMY LUMBAR FUSION COLON SURGERY RECTAL POLYPECTOMY BREAST BIOPSY Right Medical History Medical History Date Comments PONV (postoperative nausea and vomiting) Hypertension Hyperlipidemia Irregular heart beat Asthma Glaucoma Diabetes mellitus ([facility]24, [facility] V28) GERD (gastroesophageal reflux disease) Anemia hx Anxiety Depression Seizures ([facility] V24, [facility] V28) last december Arthritis Joint pain Sleep [...] 08/21/2024 8:00 AM EDT Soft tissue mass [place] EXCISION TUMOR/SOFT TISSUE SHOULDER AREA SUBCUTANEOUS < [...] INCLUSION CYST, RUPTURED 08/25/2024 1:22 PM EDT [facility] Gross Description A. Shoulder, Right, Lesion of posterior: Labeled lesion of shoulder R . Received in formalin is an unoriented, 2.0 x 0.9 x 0.8 cm enriquez skin ellipse and subcutis. The bulging subcutaneous tissue are inked blue and sectioning are contiguous with a 0.4 cm in greatest diameter smooth-walled, unilocular cyst which contains white, friable material. A business services sales representative section is submitted in one cassette, one piece. TS 08/25/2024 1:22 PM EDT [facility] Disclaimer Unless otherwise specified, all tissue is 10% NB formalin fixed and paraffin embedded. 08/25/2024 1:22 PM EDT [facility] Tissue Structure of right shoulder region / Unknown 08/21/2024 8:00 AM EDT 08/21/2024 9:39 AM EDT Devi Russell MD LAB PATHOLOGY ORDERABLE S Final Result [facility] [address] [place] [address], * (ABNORMAL) POCT Glucose, blood (08/21/2024 6:18 AM EDT) Glucose POCT 126(H) 70 - 100 mg/dL 08/21/2024 6:19 AM EDT [facility] Blood Capillary blood specimen / Unknown 08/21/2024 6:18 AM EDT 08/21/2024 6:20 AM EDT Devi Russell MD LAB POINT OF CA RE TEST DOCKED DEVICE UNSOLICITED RESULTS Final Result [facility] [address] [place] [address], * ECG 12 lead (08/14/2024 10:07 AM EDT) Ventricular Rate ECG 61 BPM GEMUSE Atrial Rate 61 BPM GEMUSE P-R Interval 160 ms GEMUSE QRS Duration 74 ms GEMUSE Q-T Interval 448 ms GEMUSE QTc 450 ms GEMUSE P Wave Boutte 47 degrees GEMUSE R Boutte -2 degrees GEMUSE T Boutte 3 degrees GEMUSE ECG Interpretation Sinus rhythm Minimal voltage criteria for LVH, may be normal variant ( R in aVL ) Nonspecific ST and T wave abnormality Abnormal ECG No previous ECGs available Confirmed by Chan KNIGHT YUFENG ([id number]) on 08/14/2024 12:28:14 PM GEMUSE 08/14/2024 10:0 7 AM EDT 08/14/2024 12:28 PM EDT us Devi Russell MD ECG ORDERABLES Final R esult HEIDI from Last 3 Months Insurance MEDICARE [facility] Advance Directives * Full Code - Default [...] currently active code status orders. Care Teams Instructional Developer Relationship Specialty Start Date End Date Karl Murphy MD [facility] [address] [place] [address] [address] [place] [address] PCP - General Internal Medicine 08/08/24
== END 2024-11-03 11:13 | disposition home or self-care (01) ==
LOC: HO.HMCHD 10:22
PROVIDERS: PCP Internal Medicine; Visit Provider Physician Assistant
DX: E11.9 Type 2 diabetes mellitus without complications (principal); I10 Essential (primary) hypertension; M19.012 Primary osteoarthritis, left shoulder; M96.1 Postlaminectomy syndrome, not elsewhere classified; G40.909 Epilepsy, unspecified, not intractable, without status epilepticus

== ENCOUNTER → 2024-11-03 10:21 | Outpatient (BNVA) | payer MEDICARE, OTHER, SELFPAY | PROVIDERS: PCP Internal Medicine; Visit Provider Physician Assistant | DX: E11.9 Type 2 diabetes mellitus without complications (principal); I10 Essential (primary) hypertension; M19.012 Primary osteoarthritis, left shoulder; M96.1 Postlaminectomy syndrome, not elsewhere classified; G40.909 Epilepsy, unspecified, not intractable, without status epilepticus; F41.9 Anxiety disorder, unspecified; G47.00 Insomnia, unspecified; E78.5 Hyperlipidemia, unspecified; Z79.84 Long term (current) use of oral hypoglycemic drugs; Z79.899 Other long term (current) drug therapy | CPT/HCPCS: 99212 ==

== ENCOUNTER 2024-11-04 12:19 | Outpatient (REF) | payer MEDICARE, OTHER, SELFPAY ==
[2024-11-04 13:01] LABS: Hemoglobin A1C 198.0802 umol/L; Total Hemoglobin (HGBA1C) 3114.6698 umol/L
[2024-11-04 13:05] LABS: Anion Gap 14 (12-20); Blood Urea Nitrogen 16 mg/dL (9-16); Calcium 9.6 mg/dL (8.4-10.2); Carbon Dioxide 26 mmol/L (22-29); Chloride 104 mmol/L (96-108); Cholesterol 172 mg/dL (<200); Estimated Glomerular Filt Rate > 60; HDL Cholesterol 46 mg/dL (>40); Potassium 3.7 mmol/L (3.3-5.1); Sodium 140 mmol/L (135-145); Triglycerides 190 mg/dL (<150)
[2024-11-04 14:33] LABS: Microalbum/Creatinine Ratio Ur 12.3 ug/mg cr (<30)
--- OUTSIDE RECORDS SUMMARY | 2024-11-04 16:23 | XMS_ITS | Clinical Summary ---
Author Organization [address] [facility] Address [address] [place] [address] Phone Care Team Providers Care Silk Screen Cutter Name Role Phone Karl Murphy MD Primary Care Provider +1- [phone] Allergies No known active allergies Medications atorvastatin [...] Gastroesophageal reflux disease 08/20/2024 Seizures ([facility] V24, [facility] V28) 08/20/2024 Arthritis 08/20/2024 Diabetes mellitus, type 2 ([facility] V24, [facility] V28) 08/20/2024 Anemia 08/20/2024 PONV (postoperative nausea and vomiting) 025 Soft tissue mass 07/01/2024 Encounters Date Type Department Care Team Description 09/09/2024 10:45 AM EDT Office Visit General Surgery [address] [place] [address] Devi Russell MD Soft tissue mass (Primary Dx) 08/21/2024 7:35 AM EDT Anesthesia Event [address] [phone] Caprice Salmon MD 08/21/2024 7:30 AM EDT - 08/21/2024 9:00 AM EDT Surgery [facility] OR [address] [place] [phone] Devi Russell MD EXCISION LESION SOFT TISSUE RIGHT POSTERIOR SHOULDER [00037 (CPT )] 08/21/2024 5:58 AM EDT - 08/21/2024 9:18 AM EDT Hospital Encounter [facility] [place] [address] [place] [phone] Devi Russell MD Soft tissue mass Discharge Disposition: Home or Self Care from Last 3 Months Surgical History Surgery Date Site/Laterality Comments OTHER SURGICAL HISTORY CATARACT EXTRACTION LASIK CERVICAL DISCECTOMY LUMBAR FUSION COLON SURGERY RECTAL POLYPECTOMY BREAST BIOPSY Right Medical History Medical History Date Comments PONV (postoperative nausea and vomiting) Hypertension Hyperlipidemia Irregular heart beat Asthma Glaucoma Diabetes mellitus ([facility] V24, [facility] V28) GERD (gastroesophageal reflux disease) Anemia hx Anxiety Depression Seizures ([facility] V24, [facility] V28) last december Arthritis Joint pain Sleep [...] 08/21/2024 8:00 AM EDT Soft tissue mass [place] EXCISION TUMOR/SOFT TISSUE SHOULDER AREA SUBCUTANEOUS < [...] INCLUSION CYST, RUPTURED 08/25/2024 1:[address] [facility] Gross Description A. Shoulder, Right, Lesion of posterior: Labeled lesion of shoulder R . Received in formalin is an unoriented, 2.0 x 0.9 x 0.8 cm enriquez skin ellipse and subcutis. The bulging subcutaneous tissue are inked blue and sectioning are contiguous with a 0.4 cm in greatest diameter smooth-walled, unilocular cyst which contains white, friable material. A tour sales representative section is submitted in one cassette, one piece. TS 08/25/2024 1:[address] [facility] Disclaimer Unless otherwise specified, all tissue is 10% NB formalin fixed and paraffin embedded. 08/25/2024 1:[address] [facility] Tissue Structure of right shoulder region / Unknown 08/21/2024 8:00 AM EDT 08/21/2024 9:39 AM EDT Devi Russell MD LAB PATHOLOGY ORDERABLE S Final Result [facility] [address] [place] [address], * (ABNORMAL) POCT Glucose, blood (08/21/2024 6:18 AM EDT) Glucose POCT 126(H) 70 - 100 mg/dL 08/21/2024 6:[address] [facility] Blood Capillary blood specimen / Unknown 08/21/2024 6:18 AM EDT 08/21/2024 6:20 AM EDT Devi Russell MD LAB POINT OF CA RE TEST DOCKED DEVICE UNSOLICITED RESULTS Final Result [facility] [address] [place] [address], * ECG 12 lead (08/14/2024 10:07 AM EDT) Ventricular Rate ECG 61 BPM GEMUSE Atrial Rate 61 BPM GEMUSE P-R Interval 160 ms GEMUSE QRS Duration 74 ms GEMUSE Q-T Interval 448 ms GEMUSE QTc 450 ms GEMUSE P Wave [place] 47 degrees GEMUSE R [place] -2 degrees GEMUSE T [place] 3 degrees GEMUSE ECG Interpretation Sinus rhythm [...] HEIDI from Last 3 Months Insurance MEDICARE [facility] Advance Directives * Full Code - Default [...] currently active code status orders. Care Teams Silk Screen Cutter Relationship Specialty Start Date End Date Karl Murphy MD [facility] [place] [address] [place] [address] [address] [place] [address] PCP - General Internal Medicine 08/08/24
== END 2024-11-04 12:20 | disposition home or self-care (01) ==
LOC: HO.LAB 12:19
PROVIDERS: PCP Physician Assistant; Visit Provider Physician Assistant
DX: F41.9 Anxiety disorder, unspecified (principal); F32.A Depression, unspecified; E11.9 Type 2 diabetes mellitus without complications; I10 Essential (primary) hypertension; E78.5 Hyperlipidemia, unspecified
CPT/HCPCS: 36415; 80048; 80061; 82043; 82570; 83036

== ENCOUNTER 2024-11-10 10:27 | Outpatient (AMB) | payer MEDICARE, OTHER, SELFPAY ==
--- NOTE | 2024-11-10 10:28 | MHC.OFFVIS ---
Vital Signs 11/10/24 10:37 Height 5 ft 2 in Weight 157 lb 8 oz BMI 28.8 BP 135/64 Blood Pressure Location Lt brachial Position Sitting Pulse 66 Intake Visit Reasons: 6 month follow-up AIN III Intake Note: Patient here for 6 month follow-up AIN III, anoscopy. Patient c/o: no complaints. TEODORO: 05-05-2024 Cellulose Insulation Helper Required: No Sales Support Administrator: Sales Support Administrator Present (Farhana-RMA) Accompanied by: Self / Same As Patient Allergies topiramate (Topamax) Allergy (Intermediate, Verified 11/10/24 10:38) ? seizure-patient unsure ibuprofen Allergy (Mild, Verified 11/10/24 10:38) Stomach Upset Medication List - Last Reconciled 11/10/24 by Narinder Larson MD albuterol sulfate 90 mcg/actuation 2 puffs inhalation Q6H PRN aspirin 81 mg PO QAM Held on 06/20/23. Instructions: Resume on 06/23/23. atorvastatin 80 mg PO BEDTIME blood pressure test kit-large As directed eydvamlenw-obfyktvnqojeg-sdeu 50-325-40 mg 1 tab PO Q8H PRN 30 days cholecalciferol (vitamin D3) 25 mcg PO QAM estazolam 2 mg PO BEDTIME gabapentin 200 mg PO BID latanoprost 0.005% 1 drp ophthalmic-Right QPM levetiracetam (Keppra) 1,000 mg PO BID levetiracetam (Keppra) 250 mg PO BID lifitegrast 5% (Xiidra) 1 drp ophthalmic (eye) BID lisinopril 20 mg PO DAILY meloxicam 15 mg PO DAILY metformin ER 1,000 mg (2 x 500 mg) PO BID omega 2-qvo-pcp-fish oil 1,000 (120-180) mg (Fish Oil) 1 cap PO QPM omeprazole 40 mg PO QAM sertraline 25 mg PO DAILY 90 days timolol maleate 0.5% 1 drp ophthalmic-Right Q12H HPI HPI 6 month follow-up AIN III: Details: She is here for a follow-up exam. She had excision of perianal lesion in September,. 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 She denies any bleeding, discomfort or any pain in the anal area. [facility] Medical History (Updated 11/10/24 @ 10:53 by Narinder Larson MD) History of anal dysplasia Cataract associated with type 2 diabetes mellitus Chest pain Back pain Lumbar degenerative disc disease Panic attacks Anxiety Depression GERD (gastroesophageal reflux disease) Migraines HTN (hypertension) Insomnia Asthma High cholesterol Seizures Diabetes Surgical History History of surgical removal of lesion (~10/19/23) History of back surgery Hx of foot surgery History of esophagogastroduodenoscopy (EGD) H/O colonoscopy (~06/27/21) H/O eye surgery History of breast biopsy History of back surgery H/O tubal ligation H/O: hysterectomy Family History Mother Diabetes Sister Colon cancer Brother Cirrhosis of liver Throat cancer Maternal Aunt Colon cancer Social History Household Members: Spouse Housing: House Are you a primary interior plant caretaker to a significant other at home: No Do you presently have visiting nurse or other home services: No Alcohol intake: current Alcohol intake frequency: does not drink Comment: pt states arm is sore--had previous sx on arm Patient Tobacco Use Status: Former Tobacco user Tobacco use type: Cigarette Years Smoked: 20 e-Cigarette/Vaping Use: Never Used Second Hand Smoke Exposure: Yes Substance Use Type: Marijuana service: No Current occupational status: retired Cognitive needs: Yes (cane/ walker) Hearing needs: No Vision needs: Yes (glasses) Review of Systems Const Denies chills and Denies fever(s) Card Denies chest pain, Denies dyspnea and Denies dyspnea on exertion Resp Denies cough, Denies dyspnea and Denies dyspnea on exertion GI Denies hematochezia and Denies change in bowel habits Denies hematuria Musc Denies back pain and Denies limited range of motion Neuro Denies focal weakness and Denies convulsions Psych Denies depression and Denies mood swings Physical Exam Vital Signs: Last Vital Signs Pulse 66 11/10/24 10:37 BP 135/64 11/10/24 10:37 BMI result Body Mass Index 28.8 Const General: comfortable and no acute distress Orientation/consciousness: patient oriented x3 Neck Neck: Yes no lymphadenopathy Resp Auscultation: clear to auscultation bilaterally Cardio Rhythm: regular rhythm GI Other: Rectal exam shows small external hemorrhoids with a any perianal lesions Palpation (GI): Soft to palpation, nontender and no guarding Neuro General: patient oriented x3 Office Procedures Anoscopy She was in kneeling darlene-knife position. The anoscope was gently inserted. A full examination of the anal canal was done. There were no lesions seen. There was no fissure ulceration. There were no areas of abnormal looking lining of the anal canal. There was no induration on digital exam. There was no bleeding. 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 Current exam including anoscopy does not suggest any lesions. There was no abnormal looking mucosa or lining of the anal canal She does not have any diagnosed with HIV. She does not engage in high risk risk behavior.. I will see her again to repeat her anoscopy in about 6 months. Coding Level of Care Code Est Pt Level 3 (24604) Diagnoses History of anal dysplasia Z87.19 CPT Codes Details - CPT: 09613-[id number] ([id number])
[2024-11-10 10:37] VITALS: BP 135/64; PULSE 66; BMI 28.8
--- OUTSIDE RECORDS SUMMARY | 2024-11-10 12:44 | XMS_ITS | Clinical Summary ---
Author Organization 175 [facility] Address [address] [place] [address] Phone Care Team Providers Care Senior Digital Designer Name Role Phone Karl Murphy MD Primary Care Provider [phone]- [phone] Allergies No known active allergies Medications atorvastatin [...] (hypertension) 08/20/2024 Gastroesophageal reflux disease 08/20/2024 Seizures ([facility] V24, [facility] V28) 08/20/2024 Arthritis 08/20/2024 Diabetes mellitus, type 2 ([facility] V24, [facility] V28) 08/20/2024 Anemia 08/20/2024 PONV (postoperative nausea and vomiting) 025 Soft tissue mass 07/01/2024 Encounters Date Type Department Care Team Description 09/09/2024 10:45 AM EDT Office Visit General Surgery [address] [place] [address] Devi Russell MD Soft tissue mass (Primary Dx) 08/21/2024 7:35 AM EDT Anesthesia Event [address] [phone] Cparice Salmon MD 08/21/2024 7:30 AM EDT - 08/21/2024 9:00 AM EDT Surgery [facility] OR [address] [place] [phone] Devi Russell MD EXCISION LESION SOFT TISSUE RIGHT POSTERIOR SHOULDER [98696 (CPT )] 08/21/2024 5:58 AM EDT - 08/21/2024 9:18 AM EDT Hospital Encounter [facility] OR [address] [place] [phone] Devi Russell MD Soft tissue mass Discharge Disposition: Home or Self Care from Last 3 Months Surgical History Surgery Date Site/Laterality Comments OTHER SURGICAL HISTORY CATARACT EXTRACTION LASIK CERVICAL DISCECTOMY LUMBAR FUSION COLON SURGERY RECTAL POLYPECTOMY BREAST BIOPSY Right Medical History Medical History Date Comments PONV (postoperative nausea and vomiting) Hypertension Hyperlipidemia Irregular heart beat Asthma Glaucoma Diabetes mellitus ([facility], [facility] V28) GERD (gastroesophageal reflux disease) Anemia hx Anxiety Depression Seizures ([facility], [facility] V28) last december Arthritis Joint pain Sleep [...] 08/21/2024 8:00 AM EDT Soft tissue mass [place] EXCISION TUMOR/SOFT TISSUE SHOULDER AREA SUBCUTANEOUS < [...] INCLUSION CYST, RUPTURED 08/25/2024 1:22 PM EDT [facility] Gross Description A. Shoulder, Right, Lesion of posterior: Labeled lesion of shoulder R . Received in formalin is an unoriented, 2.0 x 0.9 x 0.8 cm enriquez skin ellipse and subcutis. The bulging subcutaneous tissue are inked blue and sectioning are contiguous with a 0.4 cm in greatest diameter smooth-walled, unilocular cyst which contains white, friable material. A canvas products sales representative section is submitted in one cassette, one piece. TS 08/25/2024 1:22 PM EDT [facility] Disclaimer Unless otherwise specified, all tissue is 10% NB formalin fixed and paraffin embedded. 08/25/2024 1:22 PM EDT [facility] Tissue Structure of right shoulder region / Unknown 08/21/2024 8:00 AM EDT 08/21/2024 9:39 AM EDT Devi Russell MD LAB PATHOLOGY ORDERABLE S Final Result [facility] [address] [place] [address], * (ABNORMAL) POCT Glucose, blood (08/21/2024 6:18 AM EDT) Glucose POCT 126(H) 70 - 100 mg/dL 08/21/2024 6:19 AM EDT [facility] Blood Capillary blood specimen / Unknown 08/21/2024 6:18 AM EDT 08/21/2024 6:20 AM EDT Devi Russell MD LAB POINT OF CA RE TEST DOCKED DEVICE UNSOLICITED RESULTS Final Result [facility] [address] [place] [address], * ECG 12 lead (08/14/2024 10:07 AM EDT) Ventricular Rate ECG 61 BPM GEMUSE Atrial Rate 61 BPM GEMUSE P-R Interval 160 ms GEMUSE QRS Duration 74 ms GEMUSE Q-T Interval 448 ms GEMUSE QTc 450 ms GEMUSE P Wave [place] 47 degrees GEMUSE R [place] -2 degrees GEMUSE T [place] 3 degrees GEMUSE ECG Interpretation Sinus rhythm [...] HEIDI from Last 3 Months Insurance MEDICARE [facility] Advance Directives * Full Code - Default [...] currently active code status orders. Care Teams Senior Digital Designer Relationship Specialty Start Date End Date Karl Murphy MD [facility] [address] [place] [address] [address] [place] [address] PCP - General Internal Medicine 08/08/24
== END 2024-11-10 10:48 | disposition home or self-care (01) ==
LOC: HO.HGS 10:27
PROVIDERS: Visit Provider Surgery
DX: Z87.19 Personal history of other diseases of the digestive system (principal)
CPT/HCPCS: 46600; 99213

== ENCOUNTER → 2024-11-10 10:27 | Outpatient (BNVA) | payer MEDICARE, OTHER, SELFPAY | PROVIDERS: Visit Provider Surgery | DX: Z09 Encounter for follow-up examination after completed treatment for conditions other than malignant neoplasm (principal); Z87.19 Personal history of other diseases of the digestive system | CPT/HCPCS: 46600; 99212 ==

== ENCOUNTER 2024-12-08 15:47 | Outpatient (AMB) | payer MEDICARE, OTHER, SELFPAY ==
--- NOTE | 2024-12-08 16:09 | AM.OFFWIN_ITS ---
Intake Vital Signs 12/08/24 16:20 Height 5 ft 2 in Weight 160 lb BMI 29.3 BP 190/90 H Blood Pressure Location Rt brachial Position Sitting Pulse 56 Temp 98.2 F Temp Source Oral Pulse Oximetry (%) 96 Intake Visit Reasons: EP Ankle swelling both legs [phone] Intake Note: Ankle swelling of both foot. Started in Nov 25, 2024. It starts in the morning after she gets up. She fell down yesterday. Patient Tobacco Use Status: Former Tobacco user Allergies topiramate (Topamax) Allergy (Intermediate, Verified 12/08/24 16:13) ? seizure-patient unsure ibuprofen Allergy (Mild, Verified 12/08/24 16:13) Stomach Upset Do you need a note to return to daycare/school/sports/work: No HPI HPI Comments History of Present Illness Details 64 y/o Female patient who presents to [facility] walk in clinic with c/o B/L Lower extremities Edema associated with elevated BP. She does have h/o HTN and currently takes Lisinopril 20 mg. She just returned from Vacation in [place] - admits to poor dieting, she did consume lots of Sodium. Denies SOB, CP, Wheezing, headaches or dizziness. No h/o DVT. Denies fevers, chills, nausea or vomiting. [facility] Medical History (Updated 12/08/24 @ 16:52 by Ruma Fabian NP) Peripheral edema History of anal dysplasia Cataract associated with type 2 diabetes mellitus Chest pain Back pain Lumbar degenerative disc disease Panic attacks Anxiety Depression GERD (gastroesophageal reflux disease) Migraines HTN (hypertension) Insomnia Asthma High cholesterol Seizures Diabetes Surgical History History of surgical removal of lesion (~10/19/23) History of back surgery Hx of foot surgery History of esophagogastroduodenoscopy (EGD) H/O colonoscopy (~06/27/21) H/O eye surgery History of breast biopsy History of back surgery H/O tubal ligation H/O: hysterectomy Family History Mother Diabetes Sister Colon cancer Brother Cirrhosis of liver Throat cancer Maternal Aunt Colon cancer Social History Household Members: Spouse Housing: House Are you a primary foster care case manager to a significant other at home: No Do you presently have visiting nurse or other home services: No Alcohol intake: current Alcohol intake frequency: does not drink Comment: pt states arm is sore--had previous sx on arm Patient Tobacco Use Status: Former Tobacco user Tobacco use type: Cigarette Years Smoked: 20 e-Cigarette/Vaping Use: Never Used Second Hand Smoke Exposure: Yes Substance Use Type: Marijuana service: No Current occupational status: retired Cognitive needs: Yes (cane/ walker) Hearing needs: No Vision needs: Yes (glasses) Physical Exam Vital Signs: Last Vital Signs Temp 98.2 F 12/08/24 16:20 Pulse 56 12/08/24 16:20 BP 190/90 H 12/08/24 16:20 Pulse Ox 96 12/08/24 16:20 BMI result Body Mass Index 29.3 Const General: no acute distress Nutritional Appearance: obese Orientation/consciousness: patient oriented x3 Resp Effort & Inspection: normal respiratory effort Auscultation: clear to auscultation bilaterally Cardio Heart sounds: S1 normal heart sound present and S2 normal heart sound present Neuro General: patient oriented x3, gait normal and moves all extremities Extrem Right lower extremity: ankle Details: tenderness, edema Details: 3+ and normal ROM; no swelling Left lower extremity: ankle Details: tenderness, pitting edema Details: 2+ and normal ROM; no swelling Psych Speech and movement: Normal speech and movement present Attitude: cooperative Assessment & Plan Assessment & Plan (1) Peripheral edema: Code(s): R60.0 - Localized edema Plan: Ordered small dose Furosemide 20 mg for 5 days. Pt has an appointment for BP check with civil drafter this week. Continue on Lisinopril and f/u with PCP Advised Lifestyle changes; weight loss, exercise, avoid high Sodium foods and oily greasy foods. Medications: New furosemide (Lasix) 20 mg PO DAILY 5 tabs 0RF R60.0 - Localized edema Coding Level of Care Code Est Pt Level 4 (98266) Diagnoses Peripheral edema R60.0 Time Spent (min) 20
[2024-12-08 16:20] VITALS: BP 190/90; PULSE 56; TEMP 36.8; O2SAT 96; BMI 29.3
== END 2024-12-08 16:47 | disposition home or self-care (01) ==
PROVIDERS: PCP Physician Assistant; Visit Provider Nurse Practitioner Family
DX: R60.0 Localized edema (principal)

== ENCOUNTER → 2024-12-08 15:47 | Outpatient (BNVA) | payer MEDICARE, OTHER, SELFPAY | PROVIDERS: PCP Physician Assistant; Visit Provider Nurse Practitioner Family | DX: R60.0 Localized edema (principal); I10 Essential (primary) hypertension; Z79.899 Other long term (current) drug therapy | CPT/HCPCS: 99212 ==

== ENCOUNTER 2024-12-17 10:06 | Outpatient (AMB) | payer MEDICARE, OTHER, SELFPAY ==
[2024-12-17 10:08] VITALS: BMI 27.9
--- NOTE | 2024-12-17 10:08 | MHC.OFFVIS ---
Vital Signs 12/17/24 10:08 Height 5 ft 2 in Weight 152 lb 8 oz BMI 27.9 Intake Visit Reasons: ? Mass on bilateral axilla Intake Note: This patient presents for an assessment for bilateral axillary mass. Pt c/o; reports she feels lumps on bilateral axillas, more prominent on the left side., reports discomfort, reports the mass/lump she feels on her left axilla the pain radiates down her arm. Box Sealing Machine Catcher Required: No Accompanied by: Self / Same As Patient Allergies topiramate (Topamax) Allergy (Intermediate, Verified 12/17/24 10:30) ? seizure-patient unsure ibuprofen Allergy (Mild, Verified 12/17/24 10:30) Stomach Upset Medication List - Last Reconciled 12/17/24 by Narinder Larson MD albuterol sulfate 90 mcg/actuation 2 puffs inhalation Q6H PRN aspirin 81 mg PO QAM Held on 06/20/23. Instructions: Resume on 06/23/23. atorvastatin 80 mg PO BEDTIME blood pressure test kit-large As directed nkbblvuxqy-lmxxlwnukovav-gafc 50-325-40 mg 1 tab PO Q8H PRN 30 days cholecalciferol (vitamin D3) 25 mcg PO QAM estazolam 2 mg PO BEDTIME PRN 30 days furosemide (Lasix) 20 mg PO DAILY gabapentin 200 mg (2 x 100 mg) PO BID 90 days latanoprost 0.005% 1 drp ophthalmic-Right QPM levetiracetam (Keppra) 1,000 mg PO BID levetiracetam (Keppra) 250 mg PO BID lifitegrast 5% (Xiidra) 1 drp ophthalmic (eye) BID lisinopril 20 mg PO DAILY meloxicam 15 mg PO DAILY metformin ER 1,000 mg (2 x 500 mg) PO BID omega 9-ulq-fmr-fish oil 1,000 (120-180) mg (Fish Oil) 1 cap PO QPM omeprazole 40 mg PO DAILY 90 days sertraline 25 mg PO DAILY 90 days timolol maleate 0.5% 1 drp ophthalmic-Right Q12H HPI HPI ? Mass on bilateral axilla: Details: [age] year old female referred for axillary masses. She says that she has had these for over 24 years. She denies any significant increased in size. She denies any pain or tenderness. She denies any skin changes. She says she wanted these check because she is having shoulder pain on the left. She says she is up-to-date with her mammograms and these have been unremarkable. [facility] Medical History (Updated 12/17/24 @ 10:51 by Narinder Larson MD) Mass of both axillae Peripheral edema History of anal dysplasia Cataract associated with type 2 diabetes mellitus Chest pain Back pain Lumbar degenerative disc disease Panic attacks Anxiety Depression GERD (gastroesophageal reflux disease) Migraines HTN (hypertension) Insomnia Asthma High cholesterol Seizures Diabetes Surgical History History of surgical removal of lesion (~10/19/23) History of back surgery Hx of foot surgery History of esophagogastroduodenoscopy (EGD) H/O colonoscopy (~06/27/21) H/O eye surgery History of breast biopsy History of back surgery H/O tubal ligation H/O: hysterectomy Family History Mother Diabetes Sister Colon cancer Brother Cirrhosis of liver Throat cancer Maternal Aunt Colon cancer Social History Household Members: Spouse Housing: House Are you a primary career technical education instructor to a significant other at home: No Do you presently have visiting nurse or other home services: No Alcohol intake: current Alcohol intake frequency: does not drink Comment: pt states arm is sore--had previous sx on arm Patient Tobacco Use Status: Former Tobacco user Tobacco use type: Cigarette Years Smoked: 20 e-Cigarette/Vaping Use: Never Used Second Hand Smoke Exposure: Yes Substance Use Type: Marijuana service: No Current occupational status: retired Cognitive needs: Yes (cane/ walker) Hearing needs: No Vision needs: Yes (glasses) Review of Systems Const Denies chills and Denies fever(s) Card Denies chest pain, Denies dyspnea and Denies dyspnea on exertion Resp Denies cough, Denies dyspnea and Denies dyspnea on exertion GI Denies hematochezia and Denies change in bowel habits Denies hematuria Musc Denies back pain and Denies limited range of motion Neuro Denies focal weakness and Denies convulsions Psych Denies depression and Denies mood swings Physical Exam Vital Signs: BMI result Body Mass Index 27.9 Const General: comfortable and no acute distress Orientation/consciousness: patient oriented x3 Neck Neck: Yes no lymphadenopathy Chest Other: Bilateral axillary masses, soft, well-defined, mobile, each about 4 cm Resp Auscultation: clear to auscultation bilaterally Cardio Rhythm: regular rhythm GI Palpation (GI): Soft to palpation, nontender and no guarding Neuro General: patient oriented x3 Assessment & Plan Assessment & Plan (1) Mass of both axillae: Code(s): R22.33 - Localized swelling, mass and lump, upper limb, bilateral Category: Medical Plan: She has an axillary mass on both breasts, each about 4 cm in diameter. Both are mobile and appeared to be well-defined. These appeared to be lipomatous in consistent with the that this could also be accessory breast tissue. She has had this for 24 years so these are unlikely to be any neoplastic process. I explained to her the option of excision which probably should be done under anesthesia. I reviewed the technique of the procedure as was the risks, benefits, and alternatives She says she is not yet ready surgical intervention. She says she will come back to me in the office at some point to re-evaluate this. Coding Level of Care Code Est Pt Level 3 (40970) Diagnoses Mass of both axillae R22.33
--- OUTSIDE RECORDS SUMMARY | 2024-12-17 12:20 | XMS_ITS | Clinical Summary ---
Author Organization 175 [facility] Address [address] [place] [address] Phone Care Team Providers Care Claims Supervisor Name Role Phone Karl Murphy MD Primary Care Provider +1- [phone] Allergies No known active allergies Medications atorvastatin [...] (hypertension) 08/20/2024 Gastroesophageal reflux disease 08/20/2024 Seizures ([facility] V24, [facility] V28) 08/20/2024 Arthritis 08/20/2024 Diabetes mellitus, type 2 ([facility] V24, [facility] V28) 08/20/2024 Anemia 08/20/2024 PONV (postoperative nausea and vomiting) 025 Soft tissue mass 07/01/2024 Surgical History Surgery Date Site/Laterality Comments OTHER SURGICAL HISTORY CATARACT EXTRACTION LASIK CERVICAL DISCECTOMY LUMBAR FUSION COLON SURGERY RECTAL POLYPECTOMY BREAST BIOPSY Right Medical History Medical History Date Comments PONV (postoperative nausea and vomiting) Hypertension Hyperlipidemia Irregular heart beat Asthma Glaucoma Diabetes mellitus ([facility] V24, [facility] V28) GERD (gastroesophageal reflux disease) Anemia hx Anxiety Depression Seizures ([facility] V24, [facility] V28) last december Arthritis Joint pain Sleep apnea Social History Tobacco Use Types Packs/Day Years Used Date Smoking Tobacco: Former Cigarettes Tobacco Cessation:Counseling Given: Not Answered Alcohol Use Standard Drinks/Week Comments Not Currently 0 (1 standard drink = 0.6 oz pur e alcohol) RARE Interpersonal Safety Answer Date Record ed Physical Abuse Unrecognized value 08/21/2024 Verbal Abuse Unrecognized value 08/21/2024 Comments No Sex and Gender Information [...] Last Done Comments Breast Cancer Screening 1960 Colorectal Cancer Screening: Colonoscopy 1960 Diabetes: Annual GFR (Glomerular Filtration Rate) 1960 Diabetes: Annual Foot Exam 1970 Diabetes: Annual Retina Eye Exam 1970 DTaP,Tdap,and Td Vaccines (1 - Tdap) 09/28/1979 Pneumococcal Vaccine: 50+ Years (1 of 2 - PCV) 09/28/1979 Cervical Cancer Screening: Pap Smear 1981 Zoster Vaccines (1 of 2) 2010 Depression Screening 02/20/2024 Cholesterol Screening (Lipid Panel) 06/14/2024 HIV Screening 06/14/2024 Hepatitis C Screening [...] age to complete this topic Insurance MEDICARE [facility] Advance Directives * Full Code - Default [...] currently active code status orders. Care Teams Claims Supervisor Relationship Specialty Start Date End Date Karl Murphy MD [address] [place] [address] PCP - General Internal Medicine 08/08/24
== END 2024-12-17 10:49 | disposition home or self-care (01) ==
LOC: HO.HGS 10:07
PROVIDERS: PCP Physician Assistant; Visit Provider Surgery
DX: R22.33 Localized swelling, mass and lump, upper limb, bilateral (principal)
CPT/HCPCS: 99213

== ENCOUNTER → 2024-12-17 10:06 | Outpatient (BNVA) | payer MEDICARE, OTHER, SELFPAY | PROVIDERS: PCP Physician Assistant; Visit Provider Surgery | DX: R22.33 Localized swelling, mass and lump, upper limb, bilateral (principal) | CPT/HCPCS: 99212 ==

== ENCOUNTER 2024-12-25 10:25 | Outpatient (AMB) | payer MEDICARE, OTHER, SELFPAY ==
--- NOTE | 2024-12-25 10:28 | A.OFFVIS_ITS ---
Intake Visit Reasons: 3m Sz, DAMIAN, MCI Allergies topiramate (Topamax) Allergy (Intermediate, Verified 12/25/24 10:38) ? seizure-patient unsure ibuprofen Allergy (Mild, Verified 12/25/24 10:38) Stomach Upset Medication List - Last Reconciled 12/25/24 by Mel Couch CNP albuterol sulfate 90 mcg/actuation 2 puffs inhalation Q6H PRN aspirin 81 mg PO QAM Held on 06/20/23. Instructions: Resume on 06/23/23. atorvastatin 80 mg PO BEDTIME blood pressure test kit-large As directed fuxfrhqkmt-uscvsxzeedsli-bcju 50-325-40 mg 1 tab PO Q8H PRN 30 days cholecalciferol (vitamin D3) 25 mcg PO QAM estazolam 2 mg PO BEDTIME PRN 30 days furosemide (Lasix) 20 mg PO DAILY gabapentin 200 mg (2 x 100 mg) PO BID 90 days latanoprost 0.005% 1 drp ophthalmic-Right QPM levetiracetam (Keppra) 1,000 mg PO BID levetiracetam (Keppra) 250 mg PO BID lifitegrast 5% (Xiidra) 1 drp ophthalmic (eye) BID lisinopril 20 mg PO DAILY meloxicam 15 mg PO DAILY metformin ER 1,000 mg (2 x 500 mg) PO BID omega 4-kkp-lgo-fish oil 1,000 (120-180) mg (Fish Oil) 1 cap PO QPM omeprazole 40 mg PO DAILY 90 days sertraline 25 mg PO DAILY 90 days timolol maleate 0.5% 1 drp ophthalmic-Right Q12H HPI Comments Details: She was taking levetiracetam, no missed doses or medication side effects. No seizures. Chronic LBP was stable with gabapentin. Balance was off at times, but no falls. Few occasional headaches with pain usually to back of head, relieved with as needed butalbital. Memory was about the same and she could be forgetful at times. Mood was about the same, anxious and depressed at times. She was not working with a therapist. She was under more stress recently related to her 's health. Sleep was okay with estazolam. She had 2 seizure-like episodes on 01/17/24 with syncope, mild twitching, and memory loss after she had cut her Keppra in half for 3 weeks on her own. This was the first episode since 2021. She was not getting enough sleep either. Tried Zolpidem, but takes some time to kick in. Still stressed, some days better than others. Gets tingling around her mouth when stressed. Has not seen therapist since 12/2022. Hx seizure disorder for >10 years. Had Sz in Mar 2021 when she was stressed out and was upset. Had a couple of sec Sz with eyes rolling back, shaking all over. Family and paramedics thought it was a panic attack. Had sz in 2020 on Keppra. Gets left sided DAMIAN occasionally. Also has chr. LBP after spinal fusion with hardware May 2016. Hx of anxiety, depression, diabetes, and seizures starting in childhood that have been fairly well controlled with Keppra. Gets brief dizzy spells with funny feeling in her epigastrium that lasts 1-2 seconds, 1-2x/week. MRIs of the brain in the past have shown scattered foci of T2 hyperintensity in the deep white matter of both hemispheres which is a nonspecific finding. Evoked potential studies for MS in the past have been negative. MRI of the brain has been stable consistent with MS but without any clinical symptoms. In the past she has been on amitriptyline or nortriptyline discontinuing both because of some weight gain. [facility] Medical History (Updated 12/17/24 @ 10:51 by Narinder Larson MD) Mass of both axillae Peripheral edema History of anal dysplasia Cataract associated with type 2 diabetes mellitus Chest pain Back pain Lumbar degenerative disc disease Panic attacks Anxiety Depression GERD (gastroesophageal reflux disease) Migraines HTN (hypertension) Insomnia Asthma High cholesterol Seizures Diabetes Surgical History History of surgical removal of lesion (~10/19/23) History of back surgery Hx of foot surgery History of esophagogastroduodenoscopy (EGD) H/O colonoscopy (~06/27/21) H/O eye surgery History of breast biopsy History of back surgery H/O tubal ligation H/O: hysterectomy Family History Mother Diabetes Sister Colon cancer Brother Cirrhosis of liver Throat cancer Maternal Aunt Colon cancer Social History Household Members: Spouse Housing: House Are you a primary career guidance technician to a significant other at home: No Do you presently have visiting nurse or other home services: No Alcohol intake: current Alcohol intake frequency: does not drink Comment: pt states arm is sore--had previous sx on arm Patient Tobacco Use Status: Former Tobacco user Tobacco use type: Cigarette Years Smoked: 20 e-Cigarette/Vaping Use: Never Used Second Hand Smoke Exposure: Yes Substance Use Type: Marijuana service: No Current occupational status: retired Cognitive needs: Yes (cane/ walker) Hearing needs: No Vision needs: Yes (glasses) Review of Systems Const Denies chills, Denies daytime sleepiness, Reports difficulty sleeping, Denies fatigue, Denies fever(s), Denies frequent falls, Reports headache(s), Denies increased appetite, Denies poor appetite, Denies snoring, Denies weakness, Denies weight gain and Denies weight loss Eyes Denies loss of vision ENT Denies vertigo, Denies dizziness, Reports headache(s) and Denies neck pain Card Denies chest pain at rest, Denies chest pain with activity, Denies syncope, Denies leg edema, Denies palpitations, Denies dyspnea and Denies dyspnea on exertion Resp Denies cough, Denies dyspnea, Denies dyspnea on exertion and Denies snoring GI Denies abdominal pain, Denies constipation, Denies heartburn, Denies diarrhea and Denies nausea Denies urinary frequency, Denies urinary incontinence and Denies urinary urgency Musc Denies abnormal gait, Denies back pain, Denies myalgias, Denies arthralgias, Denies neck pain, Denies numbness and Denies tingling Neuro Denies abnormal gait, Denies vertigo, Denies dizziness, Denies syncope, Denies frequent falls, Reports headache(s), Denies lack of coordination, Denies loss of vision, Denies memory loss, Denies numbness, Denies Other visual disturbances, Denies restless legs, Denies seizure-like activity, Denies tingling, Denies paresthesias, Denies tremor(s) and Denies weakness Psych Reports anxiety, Denies depression, Denies auditory hallucinations, Denies memory loss and Denies visual hallucinations Endo Denies fatigue and Denies palpitations Physical Exam Const Other: General Appearance:? normal, in no acute distress. Heart:? S1, S2 normal, no murmurs. Lungs:? clear anteriorly and posteriorly. Musculoskeletal:? normal. Extremities:? no edema. Psych:? alert, oriented, cognitive function intact, cooperative with exam. Neuro Other: Abnormal Neurological Findings:?MMSE 24/30. Mental Status: alert and oriented X 3. Normal attention, orientation, memory, and affect. Cranial Nerves: Pupils are equal, round, and reactive to light. External ocular muscles are intact. Visual kitchen are full, no ptosis. Face is symmetrical, no facial weakness or droop. Facial sensations are normal. Tongue protrudes in midline. Palate elevates symmetrically. Shoulder shrugging is normal Motor Examination: Normal muscle tone, bulk and strength. No atrophy or fasciculations. No drift of the extended upper extremities. DTR 2+. Plantars are flexor. Sensory Exam: Normal light touch, temperature, pinprick, vibration, and joint- position sensations. Rhomberg sign is absent. Coordination: No ataxia. No titubation. Gait Exam: Within normal limits. Cerebellar Signs: Vqyaqz-qe-jsvv is okay. Extrapyramidal System: No tremor, rigidity with normal facial expressions. No bradykinesia. No bradyphrenia. Normal arm swing and posture. No propulsion or retropulsion. Speech: Normal. MMSE Level of Consciousness: Alert. Orientation: Knows correct year, month, date, day and season. Knows correct city, county and state. Knows correct location and floor. Registration: Able to register 3 objects. Attention: Unable to do. Recall: Able to recall 2 out of 3 objects. Language: Normal spontaneous speech, fluency, repetition, naming, comprehension, reading, and writing. Total Score: 24/30. Results Reviewed Results Reviewed: Labs 06/2024: Vitamin B12, Vitamin D, TSH ok, A1c 8.5 CT head 01/17/24: No acute intracranial pathology, mild chronic microangiopathy. Assessment & Plan Assessment & Plan (1) Seizure disorder: Code(s): G40.909 - Epilepsy, unspecified, not intractable, without status epilepticus Category: Medical Plan: Continue levetiracetam 1000mg 1 tablet twice a day. Continue levetiracetam 250mg 1 tablet twice a day. (2) Insomnia: Code(s): G47.00 - Insomnia, unspecified Category: Medical Qualifiers: Insomnia type: unspecified Qualified Code(s): G47.00 - Insomnia, unspecified Plan: Continue estazolam 2mg 1 tablet at bedtime as needed for sleep #30 for 30 days. (3) Lumbar disc disease: Code(s): M51.9 - Unspecified thoracic, thoracolumbar and lumbosacral intervertebral disc disorder Category: Medical Plan: Continue gabapentin 100mg 2 tablets twice a day. (4) Tension headache: Code(s): G44.209 - Tension-type headache, unspecified, not intractable Category: Medical Plan: Continue qkenuinkaj-IJWC-euuvkecv 50-325-40mg 1 tablet as needed q8h for headache #30 for 30 days (5) Anxiety and depression: Code(s): F41.9 - Anxiety disorder, unspecified; F32.A - Depression, unspecified Category: Medical Plan: Increase sertraline 50mg 1 tablet daily. (6) MCI (mild cognitive impairment): Code(s): G31.84 - Mild cognitive impairment of uncertain or unknown etiology Category: Medical Plan: Stay physically and socially active. Plan Meds tried: zolpidem 10mg Medications: New sertraline 50 mg PO DAILY 90 tabs 1RF 90 days Refilled bahszzavct-sbnpjllyetbeb-ltav 50-325-40 mg 1 tab PO Q8H PRN 30 tabs 2RF migraine 30 days estazolam 2 mg PO BEDTIME PRN 30 tabs 2RF sleep 30 days Discontinued sertraline Discontinued Reason: Doctor's Order 25 mg PO DAILY 90 days 90 tabs 1RF Coding Level of Care Code Est Pt Level 4 (95502) Diagnoses Seizure disorder G40.909 Insomnia, unspecified type G47.00 Insomnia type: unspecified Lumbar disc disease M51.9 Tension headache G44.209 Anxiety and depression F41.9; F32.A MCI (mild cognitive impairment) G31.84
--- OUTSIDE RECORDS SUMMARY | 2024-12-25 12:22 | XMS_ITS | Clinical Summary ---
Author Organization [address] [facility] Address [address] [place] [address] Phone Care Team Providers Care Supervisor [employer] Name Role Phone Karl Murphy MD Primary Care Provider [phone]- [phone] Allergies No known active allergies Medications atorvastatin [...] (hypertension) 08/20/2024 Gastroesophageal reflux disease 08/20/2024 Seizures ([facility] V24, [facility] V28) 08/20/2024 Arthritis 08/20/2024 Diabetes mellitus, type 2 ([facility] V24, [facility] V28) 08/20/2024 Anemia 08/20/2024 PONV (postoperative nausea and vomiting) 025 Soft tissue mass 07/01/2024 Surgical History Surgery Date Site/Laterality Comments OTHER SURGICAL HISTORY CATARACT EXTRACTION LASIK CERVICAL DISCECTOMY LUMBAR FUSION COLON SURGERY RECTAL POLYPECTOMY BREAST BIOPSY Right Medical History Medical History Date Comments PONV (postoperative nausea and vomiting) Hypertension Hyperlipidemia Irregular heart beat Asthma Glaucoma Diabetes mellitus ([facility] V24, [facility] V28) GERD (gastroesophageal reflux disease) Anemia hx Anxiety Depression Seizures ([facility] V24, [facility] V28) last december Arthritis Joint pain Sleep [...] age to complete this topic Insurance MEDICARE [facility] Advance Directives [...] currently active code status orders. Care Teams Supervisor [employer] Relationship Specialty Start Date End Date Karl Murphy MD [address] [place] [address] PCP - General Internal Medicine 08/08/24
== END 2024-12-25 11:30 | disposition home or self-care (01) ==
LOC: HO.HSM 10:26
PROVIDERS: PCP Physician Assistant; Visit Provider Registered Nurse
DX: G40.909 Epilepsy, unspecified, not intractable, without status epilepticus (principal); G47.00 Insomnia, unspecified; M51.9 Unspecified thoracic, thoracolumbar and lumbosacral intervertebral disc disorder; G44.209 Tension-type headache, unspecified, not intractable; F41.9 Anxiety disorder, unspecified; F32.A Depression, unspecified; G31.84 Mild cognitive impairment of uncertain or unknown etiology
CPT/HCPCS: 99214

== ENCOUNTER → 2024-12-25 10:25 | Outpatient (BNVA) | payer MEDICARE, OTHER, SELFPAY | PROVIDERS: PCP Physician Assistant; Visit Provider Registered Nurse | DX: G40.909 Epilepsy, unspecified, not intractable, without status epilepticus (principal); G44.209 Tension-type headache, unspecified, not intractable; F41.9 Anxiety disorder, unspecified; F32.A Depression, unspecified; G31.84 Mild cognitive impairment of uncertain or unknown etiology; M51.9 Unspecified thoracic, thoracolumbar and lumbosacral intervertebral disc disorder; Z79.82 Long term (current) use of aspirin; Z87.891 Personal history of nicotine dependence; I10 Essential (primary) hypertension | CPT/HCPCS: 99212 ==

== ENCOUNTER 2025-02-09 08:58 | Outpatient (REF) | payer MEDICARE, OTHER, SELFPAY ==
--- NOTE | ~2025-02-09 | MM_ITS ---
EXAMINATION: DXA BONE DENSITY AXIAL HISTORY: Z78.0 - Asymptomatic menopausal state TECHNIQUE: DataRPM Dual energy absorptiometry (DEXA) of the lumbar spine, total left hip, and femoral neck was performed. COMPARISON: There are no prior studies for comparison. FINDINGS: The bone mineral density of the lumbar spine is 1.190 g/cm2, corresponding to a T-score of 0.2, and a Z-score of 1.6. This is indicative of normal bone mineral density. The bone mineral density of the left total hip is 1.023 g/cm2, corresponding to a T-score of 0.1, and a Z-score of 1.1. This is indicative of normal bone mineral density. The bone mineral density of the left femoral neck is 0.958 g/cm2, corresponding to a T-score of -0.6, and a Z-score of 0.7. This is indicative of normal bone mineral density. FRACTURE RISK: The FRAX index suggests a risk of major osteoporotic fracture of 4.0%, and of hip fracture 0.2%. MM/XR DEXA axial skeleton IMPRESSION: Based on bone mineral density, and according to World Health Organization (WHO) criteria, the diagnosis is consistent with normal bone mineral density. Statistically, 68% of repeat scans fall within 1 SD (+/- 0.010 g/cm2 for AP spine L1-L4) and 1 SD (+/- 0.012 g/cm2 for femur total) FRAX is a trademark of the [employer] [place] [employer] Metabolic Bone Disease, a World Health Organization (WHO) Collaborating Center. Electronically signed by: Aneesh Aviles MD 02/09/2025 09:43 AM [facility]
--- OUTSIDE RECORDS SUMMARY | 2025-02-09 09:45 | XMS_ITS | Clinical Summary ---
Author Organization [address] [facility] Address [address] [place] [address] Phone Care Team Providers Care Barrel Scraper Name Role Phone Karl Murphy MD Primary Care Provider [phone]- [phone] Allergies No known active allergies Medications atorvastatin [...] (hypertension) 08/20/2024 Gastroesophageal reflux disease 08/20/2024 Seizures 08/20/2024 Arthritis 08/20/2024 Diabetes mellitus, type 2 08/20/2024 Anemia 08/20/2024 PONV (postoperative nausea and vomiting) 025 Soft tissue mass 07/01/2024 Surgical History Surgery Date Site/Laterality Comments OTHER SURGICAL HISTORY CATARACT EXTRACTION LASIK CERVICAL DISCECTOMY LUMBAR FUSION COLON SURGERY RECTAL POLYPECTOMY BREAST BIOPSY Right Medical History Medical History Date Comments PONV (postoperative nausea and vomiting) Hypertension Hyperlipidemia Irregular heart beat Asthma Glaucoma Diabetes mellitus ([facility] V24, [facility] V28) GERD (gastroesophageal reflux disease) Anemia hx Anxiety Depression Seizures ([facility] V24, [facility] V28) last december Arthritis Joint pain [...] PM EDT Sexual Orientation Not on file Last Filed Vital Signs Vital Sign Reading [...] Diabetes: Annual GFR (Glomerular Filtration Rate) 1960 Drug Screen 1960 Non-Opioid Controlled Substance Agreement 1960 Diabetes: Annual Foot Exam 1970 Diabetes: [...] 08/21/2024 Hypertension/CHF/CAD Annual BMP Blood Test 08/21/2024 COVID-19 Vaccine ( - season) 2024 12/22/2023, 01/07/2023 Influenza Vaccine (#1) 2024 , 01/07/2023, 01/11/2021, Additional history exists RSV Immunization Adult Patients (1 - 1-dose 75+ series) 09/28/2035 HIB [...] age to complete this topic Insurance MEDICARE [facility] Advance Directives * Full Code - [...] currently active code status orders. Care Teams Barrel Scraper Relationship Specialty Start Date End Date Karl Murphy MD [address] [place] [id number] PCP - General Internal Medicine 08/08/24
== END 2025-02-09 08:59 | disposition home or self-care (01) ==
LOC: HO.MAMMO 08:58
PROVIDERS: PCP Physician Assistant; Visit Provider Physician Assistant
DX: M89.8X0 Other specified disorders of bone, multiple sites (principal); Z78.0 Asymptomatic menopausal state
CPT/HCPCS: 77080

== ENCOUNTER → 2025-02-09 09:15 | Outpatient (BNV) | payer MEDICARE, OTHER, SELFPAY | PROVIDERS: PCP Physician Assistant; Visit Provider Radiology Diagnostic Radiology | DX: E28.39 Other primary ovarian failure (principal) | CPT/HCPCS: 77080 ==